=== PATIENT | female | born 1990 | race Caucasian/White ===

== ENCOUNTER 2024-10-17 10:41 | Day surgery (SDC) | payer BC, SELFPAY ==
[2024-10-17] VITALS (7 sets, daily range): BP systolic 109–116; BP diastolic 66–78; PULSE 66–78; RESP 14–16; TEMP 36.1–36.8; O2SAT 100; BMI 24.3
--- NOTE | 2024-10-17 10:52 | PCM.PRE.AN2 ---
ASA Classification* ASA Classification ASA Classification: 2 Assessment & Plan Anesthesia* Anesthesia Assessment Anesthesia Assessment: Discussed sedation and/or anesthesia options, risks, benefits, and alternatives with patient/parents/legal guardian/POA. Questions invited. The patient/parents/legal guardian/POA seems to understand and agrees to proceed with anesthesia plan. Reviewed the physical assessment, medical history, allergy history and patient home medications list prior to surgery/procedure/anesthetic and documented any changes. Performed airway and anesthesia risk assessments. Anesthesia Type Anesthesia Type: MAC Anesthesia Focused Assessment* Airway Assessment Mouth opens: >3 cm Mallampati Score: II Labs Anesthesia Preop lab: CBC CHEMISTRY COAG Pre-Assessment Diagnosis/Proposed Procedure Planned Operative Procedure(s): EGD Anesthesia History Anesthesia History - skiver sock linings: Anesthesia History - skiver sock linings Hx Hospitalization No 10/15/24 13:56 Any Problems With Anesthesia Yes: NAUSEA 10/15/24 13:56 Cholinesterase deficiency No 10/15/24 13:56 You/Your Family Experience No 10/15/24 13:56 fever (hyperthermia) with Relationship Recent Exposure to Contagious Disease Does patient have nerve No 10/15/24 13:56 stimulator Patient instructed to have device shut off --Does patient have Pacemaker or ICD? When Was Last Pacemaker Check QUESTION #4 FULL TEXT: You/Your Family Experience fever (hyperthermia) with Anesthesia Last Oral Intake Last Oral intake: Last Oral Intake NPO since Meds taken in AM with sips of water? Meds patient instructed to take am of surgery PONV PONV - skiver sock linings: PONV - skiver sock linings Female Yes 10/15/24 13:56 HX of Motion Sickness No 10/15/24 13:56 HX of N/V After Surgery Yes 10/15/24 13:56 Non-Smoker Yes 10/15/24 13:56 Duration of Surgery greater No 10/15/24 13:56 than 60 minutes Number of Risk Factors 3 10/15/24 13:56 PONV Score Moderate Risk 10/15/24 13:56 Height & Weight Height & Weight: Anesthesia: Height & Weight Height 5 ft 3 in 09/03/24 10:07 Respiratory Assessment Respiratory Assessment - skiver sock linings: Respiratory Tract Infection Hx - skiver sock linings Hx Respiratory Tract Infection No 10/15/24 13:56 STOP Sleep Apnea STOP Sleep Apnea - skiver sock linings: STOP Sleep Apnea - skiver sock linings Hx Hypertension No 10/15/24 13:56 Hx Sleep Apnea No 10/15/24 13:56 CPAP BIPAP Do you snore loudly (louder No 10/15/24 13:56 than talking or can be heard Do you often feel tired/ No 10/15/24 13:56 fatigued/ sleepy during daytime? Has anyone observed you stop No 10/15/24 13:56 breathing during sleep? STOP Results Negative 10/15/24 13:56 QUESTION #5 FULL TEXT : Do you snore loudly (louder than talking or can be heard through closed doors)? 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 Specify any problems Hx of Preganancy in last 3 No 10/15/24 13:56 Months Nurse Filling Out Transfusion DSCHRIBER 10/15/24 13:56 & Questions: Date: 10/15/24 10/15/24 13:56 Time: 13:58 10/15/24 13:56 Patient unable to answer at this time (ie. confused, unrespo /Reproduction History /Reproductive History - skiver sock linings: /Reproductive Hx- skiver sock linings Hx Now No 10/15/24 13:56 Gestational Age (in weeks): EDC: Hx Hx Para Hx Section SAB No 10/15/24 13:56 PFSH Medical History Migraine headache Gastric reflux Non-smoker Home Medications ?Medication ?Instructions ?Recorded ?Last Taken ?Type calcium polycarbophil 625 mg 1,250 mg PO QDAY 09/03/24 Unknown History tablet (FiberCon) pantoprazole 40 mg tablet,delayed 40 mg PO QDAY #90 tabs 09/03/24 Unknown Rx release cholecalciferol (vitamin D3) 25 25 mcg PO DAILY 10/15/24 Unknown History mcg (1,000 unit) capsule (Vitamin D3) magnesium 250 mg tablet 250 mg PO DAILY 10/15/24 Unknown History vit no.95-ferrous 1 tab PO DAILY 10/15/24 Unknown History fumarate 28 mg-folic acid 800 mcg tablet ( Multivitamins) Allergy/AdvReac Type Severity Reaction Status Date / Time amoxicillin (From Augmentin) Allergy Intermediate Other Verified 10/15/24 13:55 clavulanic acid (From Allergy Intermediate Other Verified 10/15/24 13:55 Augmentin) Surgical History History of mandibular surgery History of cholecystectomy Social History Smoking Status: Never smoker alcohol intake: never frequency: 5-6 times per week Review of Systems (Anesthesia) ROS Narrative System reviewed and no additional complaints, except as documented.
[2024-10-17 11:24] LABS: Internal QC Validated? YES +Cl - CLEAR BKGD; Pregnancy, Urine Negative Negative
[2024-10-17] MEDS: Lactated Ringers 1,000 ML 15 ML IV (11:28)
--- NOTE | 2024-10-17 11:30 | EGD_PTH ---
PATIENT: JANICE WHITE LOC: EN U#:[id number] AGE/SX: 33/F ROOM: RE10/17/[address]: Dr. Junior Gomez DO : 1990 BED: DIS: 10/17/2024 SPEC #: [id number] RECD: 10/17/24 12:53 STATUS: RUT REQ #: [id number] ALEXANDREA: 10/17/24 11:[address]: Junior Gomez DEPT: SURGICAL PATHOLOGY RECD BY: Drake Whittaker ENTERED: 10/17/24 14:38 SP TYPE: EGD BIOPSY BLADIMIR DR: Dr. Vega Mas MD Tissues: A - Duodenum, NOS B - Gastric mucous membrane Procedures: Immunohistochemical Stains Surgery Specimen Level IV HEADER OPERATION: EGD and biopsy PRE-OP DIAGNOSIS: Epigastric pain, heartburn TISSUE SUBMITTED: A- Duodenum biopsy, B- Gastric antrum biopsy MICROSCOPIC DIAGNOSIS A. Duodenum, biopsy: Normal villous architecture with increased Intraepithelial lymphocytes - see note. Note: This pattern of injury is etiologically nonspecific?and the differential diagnosis includes sensitivity to gluten and non-gluten proteins, small intestinal bacterial overgrowth, stasis related changes, infection, protein calorie malnutrition, tropical sprue, and medication injury (NSAIDs, Olmesartan / Benicar, Mycophenolic acid, Idelalisib, for example). If celiac disease is a clinical concern, additional clinical studies, such as tTG-IgA, are recommended. B. Stomach, antrum, biopsy: Oxyntic mucosa with slight chronic inflammation. IHC negative for H.pylori organisms. MICROSCOPIC DESCRIPTION Slides are reviewed. All matched controls reacted appropriately. These tests were developed and their performance characteristics determined by [facility]. They may not have been cleared or approved by the U.S. Food and Drug Administration. The FDA has determined that such clearance or approval is not necessary.? The above immunohistochemical/dualISH?markers are reviewed by the Pathologist. GROSS DESCRIPTION Received in 2 formalin containers labeled the patient's name and date of . Designated as: A. Duodenum biopsy are 2 miller tissue fragments, 0.3 cm and 0.5 cm. Entirely submitted in 1 cassette. B. Gastric antrum, check for H. pylori are 4 miller tissue fragments, <0.1 cm to 0.7 cm. Entirely submitted in 1 cassette. [facility] [place] CPT:26826v8,32644
--- NOTE | 2024-10-17 11:49 | PCM.HP.STD ---
HPI - General General Date of Admission: 10/17/24 Date of Service: 10/17/24 HPI Narrative JANICE WHITE, is a 33 F who presents LEORA WHITE, is a 33 F who presents to the office today for OV 06/25/2024 33y/o female presents for consultation with complaints of external skin tag and indigestion. She reports development of hemorrhoid post delivery of her second child in 2022. Rectal exam today reveals a minute skin tag. She denies any bleeding but does endorse intermittent rectal irritation. We have discussed the benefits of a high-fiber diet with the addition of FiberCon tablets daily. She will also trial Anusol suppositories for 7 days. In terms of indigestion she complains of an epigastric pressure and occasional heartburn. Denies any nausea, vomiting, dysphagia or weight loss. She has noted improvement in the past with OTC Pepcid. She will start Pepcid 20 mg once daily and complete 8 weeks of therapy. She will follow-up in 3 months. If she has return of upper GI symptoms we will proceed with EGD. If she continues to experience irritation secondary to skin tag will arrange for banding. Note: [employer] speech recognition diabetic educator software was used to create portions of this document. Sound-alike and misspelled words, as well as other diabetic educator errors may be contained in the documentation. Patient Instructions: FiberCon 2 tablets once daily with 8 ounces of water after a meal. May take up to 3 weeks for symptom improvement. Pepcid 20mg QD x8 weeks and then discontinue, if symptoms persist will start PPI and schedule EGD - reports the hemorrhoids are so much better - epigastric palpitation, feeling of fullness, intermittent - has been on pepcid 20mg daily since last OV - avoids caffeine - reports episodes have decreased in frequency with pepcid daily, no longer having daily episodes - Holter monitor shows something there but nothing worrisome - she went on a low dose BB and this showed no change - saw a chiropractor and was able to massage down hiatal hernia and this resolved symptom x2 - symptoms did not worsen when - wants to become again and is fearful she will develop symptoms during PFSH Medical History Migraine headache Gastric reflux Non-smoker Home Medications ?Medication ?Instructions ?Recorded ?Last Taken ?Type calcium polycarbophil 625 mg 1,250 mg PO QDAY 09/03/24 Unknown History tablet (FiberCon) pantoprazole 40 mg tablet,delayed 40 mg PO QDAY #90 tabs 09/03/24 Unknown Rx release cholecalciferol (vitamin D3) 25 25 mcg PO DAILY 10/15/24 Unknown History mcg (1,000 unit) capsule (Vitamin D3) magnesium 250 mg tablet 250 mg PO DAILY 10/15/24 Unknown History vit no.95-ferrous 1 tab PO DAILY 10/15/24 Unknown History fumarate 28 mg-folic acid 800 mcg tablet ( Multivitamins) Allergy/AdvReac Type Severity Reaction Status Date / Time amoxicillin (From Augmentin) Allergy Intermediate Other Verified 10/17/24 11:19 clavulanic acid (From Allergy Intermediate Other Verified 10/17/24 11:19 Augmentin) Surgical History History of mandibular surgery History of cholecystectomy Social History Smoking Status: Never smoker alcohol intake: never frequency: 5-6 times per week ROS Constitutional Constitutional: Denies fatigue, fever(s), poor appetite, weight gain or weight loss Gastrointestinal Gastrointestinal: Denies belching, bloating, change in bowel habits, change in stool character, chewing difficulty, coffee ground emesis, constipation, cramping, diarrhea, dyspepsia, dysphagia, early satiety, excessive flatus, fecal incontinence, heartburn, hematemesis, hematochezia, hemorrhoids, loose stools, melena, nausea, odynophagia, rectal bleeding, tenesmus, vomiting or weight changes Vital Signs Vital Signs Vital Signs: 10/17/24 11:19 10/17/24 11:19 Temperature 98.3 F Temperature Source Temporal Pulse Rate 66 Respiratory Rate 16 Respiratory Pattern Normal Blood Pressure 116/78 Blood Pressure Mean 90 Blood Pressure Source Monitor Blood Pressure Position Semi-Fowlers Blood Pressure Location Right Arm Pulse Ox 100 Oxygen Delivery Method Room Air Weight Weight: 137 lb 9.095 oz Body Mass Index (BMI) 24.3 Physical Exam Const alert, oriented x3, no apparent distress and healthy appearing General Appearance: cooperative GI normal to inspection, nondistended, normoactive bowel sounds, soft to palpation, non-tender and non-distended Percussion: normal to percussion Rectal Exam: deferred Results Lab / Micro Data Labs: Laboratory Results - last 24 hr 10/17/24 11:15: Urine Test Negative Assessment & Plan Assessment/Plan (1) Epigastric pain: (2) Heartburn: PLAN: Assessment and Plan Assessment and Plan (1) Heartburn: Status: Acute (2) Epigastric pain: Status: Acute Medications: New pantoprazole take 30 minutes before breakfast every morning 40 mg PO QDAY 90 tabs 1RF Discontinued hydrocortisone acetate (Anusol-HC) Discontinued Reason: Order Completed 25 mg HI QHS 12 ea 0RF famotidine (Pepcid) Discontinued Reason: Order Changed 20 mg PO QDAY 90 tabs 1RF Plan 33-year-old female presents for follow-up of heartburn and rectal irritation. She was last seen in the office on 06/25/2024 and was started on Pepcid 20 mg daily and provided a 7-day treatment of Anusol suppositories. She reports resolution in rectal pain with Anusol suppositories. Since starting Pepcid 20 mg daily (8 weeks ago) she does report improvement in epigastric pain but not resolution. She will discontinue Pepcid and start PPI daily. I have scheduled her for an EGD for further evaluation. Note: [employer] speech recognition diabetic educator software was used to create portions of this document. Sound-alike and misspelled words, as well as other diabetic educator errors may be contained in the documentation. Patient Instructions: Discontinue pepcid Start pantoprazole 40mg daily I like 3 Will refill Anusol supp. if she has recurrent GI symptoms Follow-up in office post procedure
--- NOTE | 2024-10-17 12:08 | PCM.POST.ANE ---
Anesthesia: Postop Eval I Current Vital Signs Temperature: 97 F Pulse Rate: 69 Blood Pressure: 109/78 Respiratory Rate: 14 Pulse Ox: 100 Oxygen Delivery Method: Room Air Assessment Airway patent: Yes Spontaneous unlabored respirations: Yes Mental status: Awake and Calm nausea: No Vomiting: No Anesthesia Complication: No Fluid Hydration Crystalloid volume administer (ml): 200 Total IV fluid infused: 200 Progress Note Anesthesia document: Postop Eval 1 completed: Yes
--- NOTE | 2024-10-17 12:19 | OP.EGD_ITS ---
Patient Name: Mindy Potter Procedure Date: 10/17/2024 11:53 AM Date of : 1990 Age: 33 Procedure: Upper GI endoscopy Indications: Epigastric abdominal pain, Functional Dyspepsia Providers: Junior Gomez DO Referring MD: Vega Mas Md Medicines: Monitored Anesthesia Care Complications: No immediate complications. Procedure: Pre-Anesthesia Assessment: - Prior to the procedure, a History and Physical was performed, and patient medications and allergies were reviewed. The patient is competent. The risks and benefits of the procedure and the sedation options and risks were discussed with the patient. All questions were answered and informed consent was obtained. Patient identification and proposed procedure were verified by the physician. Mental Status Examination: alert and oriented. Airway Examination: normal oropharyngeal airway and neck mobility. Respiratory Examination: clear to auscultation. CV Examination: normal. Prophylactic Antibiotics: The patient does not require prophylactic antibiotics. Prior Anticoagulants: The patient has taken no anticoagulant or antiplatelet agents. ASA Grade Assessment: II - A patient with mild systemic disease. After reviewing the risks and benefits, the patient was deemed in satisfactory condition to undergo the procedure. The anesthesia plan was to use monitored anesthesia care (MAC). Immediately prior to administration of medications, the patient was re-assessed for adequacy to receive sedatives. The heart rate, respiratory rate, oxygen saturations, blood pressure, adequacy of pulmonary ventilation, and response to care were monitored throughout the procedure. The physical status of the patient was re-assessed after the procedure. After obtaining informed consent, the endoscope was passed under direct vision. Throughout the procedure, the patient's blood pressure, pulse, and oxygen saturations were monitored continuously. The gastroscope was introduced through the mouth, and advanced to the fourth part of the duodenum. Small bowel enteroscopy was deemed necessary. The upper GI endoscopy was accomplished without difficulty. The patient tolerated the procedure well. Scope In: 12:02:31 PM Scope Out: 12:05:59 PM Total Procedure Duration Time 0 hours 3 minutes 28 seconds Findings: The examined esophagus was normal. Estimated blood loss: none. Suspect gastroparesis due to absence of peristalsis, patient symptoms and retained gastric contents. Biopsies were taken with a cold forceps for histology. Verification of patient identification for the specimen was done. Estimated blood loss was minimal. Biopsies were taken with a cold forceps for Helicobacter pylori testing. Verification of patient identification for the specimen was done. Estimated blood loss was minimal. Patchy mildly erythematous mucosa without active bleeding and with no stigmata of bleeding was found in the duodenal bulb and in the second portion of the duodenum. Biopsies were taken with a cold forceps for histology. Verification of patient identification for the specimen was done. Estimated blood loss was minimal. Impression: - Normal esophagus. - Gastroparesis. Biopsied. - Erythematous duodenopathy. Biopsied. Recommendation: - Discharge patient to home. - Resume previous diet. - Continue present medications. - Await pathology results. Procedure Code(s): --- Professional --- 70040, Small intestinal endoscopy, enteroscopy beyond second portion of duodenum, not including ileum; with biopsy, single or multiple CPT copyright 2021 [employer]. All rights reserved. The codes documented in this report are preliminary and upon sagger filler review may be revised to meet current compliance requirements. Junior Gomez DO 10/17/2024 12:19:18 PM This report has been signed electronically. Number of Addenda: 0 Note Initiated On: 10/17/2024 11:53 AM
--- NOTE | 2024-10-17 12:19 | OP.CCLET_ITS ---
10/17/2024 Vega Mas Md Re : Upper GI endoscopy procedure for Mindy Potter Dear Chace This procedure was performed on October. My impressions and recommendations are as follows: Impressions : - Normal esophagus. - Gastroparesis. Biopsied. - Erythematous duodenopathy. Biopsied. Recommendations : - Discharge patient to home. - Resume previous diet. - Continue present medications. - Await pathology results. My findings are described in the full procedure note, which is enclosed. If I can be of further assistance, please feel free to contact me at . Sincerely, Junior Gomez, 10/17/2024 12:19:18 PM This report has been signed electronically.
--- NOTE | 2024-10-17 12:25 | PCM.POSTANE2 ---
Anesthesia Postop Eval I Sum Postop Eval Completion status Anesthesia document: Postop Eval 1 completed: Yes Anesthesia Postop Eval I Summary Anesthesia Postop Eval I Summary: Anesthesia Postop Eval I: Assessment Summary Airway patent Yes 10/17/24 12:09 [email or web address] Spontaneous unlabored Yes 10/17/24 12:09 [email or web address] respirations Mental status Awake,Calm 10/17/24 12:09 [email or web address] nausea No 10/17/24 12:09 [email or web address] Vomiting No 10/17/24 12:09 [email or web address] Anesthesia Postop Eval I: Fluid Summary Crystalloid volume administer 200 10/17/24 12:09 [email or web address] (ml) Colloids volume administered ( ml) Blood Product volume administered (ml) Total IV fluid infused 200 10/17/24 12:09 [email or web address] Anesthesia Postop Eval I: Summary Notes Anesthesia Complication No 10/17/24 12:09 [email or web address] Anesthesia Complication Comment: Post-operative progress note Anesthesia: Postop Eval II Evaluation Mental status: Awake Pain Level: 0 nausea: No Vomiting: No
--- OUTSIDE RECORDS SUMMARY | 2024-10-17 20:30 | XMS RPT_ITS | CCD ---
Author Organization [facility] Care Team Providers Care Supervisor Nut Processing Name Role Phone JAMAICA PATEL, HILARY BROOKS Primary Care Physician HILARY BERUMEN MD Consulting Unavailable NIVIA BARBER CNP Attending NIVIA Magallon CNP Admitting UnavailNIVIA Negrete CNP Primary Care Unavailabl e PROVIDER, UNKNOWN Consulting Unavailable PROVIDER, UNKNOWN Consulting Unavailable PROVIDER, UNKNOWN Consulting Unavailable SHRADDHA PATEL, DR JASKARAN Obregon Primary Care Physician [phone] LATA MELENDEZ, AIRAN Roland Attending Gloria BERUMEN MD, HILARY BROOKS Primary Care Unavailab daniel MELENDEZ, SAJI Roland Attending Didi LLANES MD, DR JASKARAN Obregon Primary Care Unavailabl e DOMONIQUE MELENDEZ, SAJI Roland Admitting Didi MELENDEZ, ARIAN Roland Attending Gloria LLANES MD, DR JASKARAN Obregon Primary Care Unavailgeraldine e LATA MELENDEZ, ARIAN Roland Attending HILARY Escalante MD Primary Care Unavailab daniel ROJAS, [place] Attending Gloria BERUMEN MD, HILARY BROOKS Primary Care Unavailab JEFF Guzman Attending Unavailab César PATEL, HILARY BROOKS Primary Care Unavailab daniel MELENDEZ, ARIAN Roland Attending Gloria BERUMEN MD, HILARY BROOKS Primary Care Unavailab daniel MELENDEZ, ARIAN Roland Attending Gloria BERUMEN MD, HILARY BROOKS Primary Care Unavailab daniel LATHAMBENIRANJAN MORALES Attending Сергей BERUMEN MD, HILARY BROOKS Primary Care Unavailab daniel ROJAS, [place] Attending Gloria BERUMEN MD, HILARY BROOKS Primary Care Unavailab daniel BENTON APRN-ADAN, ARIAN Roland Attending Gloria shanice BERUMEN MD, HILARY BROOKS Primary Care Unavailab daniel MELENDEZ, ARIAN Roland Attending Gloria BERUMEN MD, HILARY BROOKS Primary Care Unavailab daniel LLANES MD, JASKARAN [place] Unavailable CLAUDIO ARANDA Unavailable Unavailable NIDHI PATEL, Aundrea WRIGHT Unavailable SAUL PATEL, LUDWIG Roland Unavailable SAUL PATEL, LUDWIG Roland Unavailable [phone] SURGERY, GENERAL Unavailable Unavailable SASCHA ASHLEY Unavailable Unavailable ADI RN, JACQUIE Unavailable Unavailable PENNY RN, BRANDON Unavailable UnavailSANGEETA Leary Unavailable Unavailable EMILIE TENORIO-C, [place] Gipson Unavailable RAMIRO BERUMEN Unavailable Unavailable JAMAICA MONP-BC, LIZY R Unavailable Compa BERUMEN MD Unavailable Morena Dinh Unavailable Unavailable Los, Lizeth Unavailable Unavailable Elly Abernathy Unavailable Unavailable MICHELA PATEL, LYUBOV Quan Unavailable SERG KERR Unavailable Unavailable Arturo WILSON, Diana Unavailable Unavailable Esmer Escalante Unavailable Unavailable Unavailable Unavailable EMILIE TENORIO-C, [place] Gipson Unavailable Unav ailable Unavailable Unavailable SHRADDHA PATEL, DR JASKARAN Ob[place] Primary Care Unavailabl e IZABEL PATTERSON DDS Attending Unavailable IZABEL PATTERSON DDS Attending Unavailable DR JASKARAN LLANES MD Primary Care Unavailabl e Jayda Nova Attending Unavailable Jayda Nova Attending Unavailable Jaskaran Llanes Primary Care Unavailable Jaskaran Llanes Referring Unavailable Junior Gomez Attending Unavailable Jayda Mcclellan Attending Provider Patricia JEFFRIES, Dr. Pacheco Attending Provider Shraddha PATEL, Dr. Ferrari Primary Care Provider [phone] Shraddha PATEL, Dr. Ferrari Referring Provider Friend Dr. Junior JEFFRIES Other Provider Allergies Allergy Classification Reported Allergen(s) Allergy Type Date of Onset Reaction(s) Facility (15 sources) Amoxicillin / Clavulanate; Translations: [amoxicillin-cla vulanate] Drug Allergy 0 Weal (disorder) [facility] Comment on above: hives (7 sources) HYDROcodone; Translations: [hydrocodone] Drug Allergy Nausea [facility] (7 sources) Penicillin; Translations: [penicillin] Drug Allergy [facility] (1 source) Amoxicillin / Clavulanate Drug Allergy [facility] Repository (10 sources) Clindamycin; Translations: [clindamycin] Drug Allergy 2 Pruritus [facility] Comment on above: burning ears with it carlie and redness (1 source) Amoxicillin Drug Allergy 5 [facility] Repository (1 source) Clavulanate Drug Allergy 5 [facility] Repository (1 source) Amoxicillin Drug Allergy 5 Other [facility] (1 source) Clavulanate Drug Allergy 5 Other [facility] Medications Current Medications Medication Drug Class(es) Dates Sig (Normalized) Sig (Original) acetaminophen 325 mg oral capsule (6 sources) Start: 10-30-2022 Tylenol 325 mg oral capsule Dose : 650 mg =, Oral, q6h, PRN Pain, scale 1-3, 0 Refill(s) Start Date: 10/30/22 Status: Ordered Start: 12-04-2019 Tylenol 325 mg oral capsule Dose : 650 mg =, Oral, q6h, PRN Pain, scale 1-3, 0 Refill(s) Start Date: 12/04/19 Status: Ordered benzocaine 200 mg/ml topical spray (5 sources) Standardized Chemical Allergen Start: 12-04-2019 apply 1 dose topically four times daily Americaine 20% topical spray Dose = 1 garcía, Topical, QID, 0 Refill(s) Start Date: 12/04/19 Status: Ordered calcium polycarbophil 625 mg oral tablet (1 source) Start: 09-03-2024 Calcium Polycarbophil (Fibercon) 625 mg tablet Active 1250 mg PO daily September 03, 2024 12:00am cholecalciferol 0.025 mg oral capsule (1 source) Vitamin D Start: 10-15-2024 take 1 capsule by mouth once daily Cholecalciferol (Vitamin D3) (Vitamin D3) 25 mcg (1,000 unit) capsule Active 25 ug PO DAILY October 15, 2024 12:00am docusate sodium 100 mg oral capsule (6 sources) Start: 10-30-2022 Colace 100 mg oral capsule Dose : 100 mg = 1 cap(s), Oral, BID, PRN Constipation, 0 Refill(s) Start Date: 10/30/22 Status: Ordered Start: 12-04-2019 Colace 100 mg oral capsule Dose : 100 mg = 1 cap(s), Oral, BID, PRN Constipation, 0 Refill(s) Start Date: 12/04/19 Status: Ordered ibuprofen 600 mg oral tablet (6 sources) Nonsteroidal Anti-inflammatory Drug Start: 10-30-2022 Motrin Dose : 600 mg = 1 tab(s), Oral, q6h, PRN uterine cramping, 0 Refill(s) Start Date: 10/30/22 Status: Ordered Start: 12-04-2019 Motrin Dose : 600 mg = 1 tab(s), Oral, q6h, PRN uterine cramping, 0 Refill(s) Start Date: 12/04/19 Status: Ordered Magnesium (1 source) Start: 10-15-2024 take 1 tablet by mouth once daily Magnesium 250 mg tablet Active 250 mg PO DAILY October 15, 2024 12:00am pantoprazole 40 mg delayed release oral tablet (9 sources) Proton Pump Inhibitor Start: 09-03-2024 take 1 tablet by mouth once daily 30 minutes before breakfast Pantoprazole 40 mg tablet,delayed release (DR/EC) Active 40 mg PO daily September 03, 2024 12:00am take 30 minutes before breakfast every morning Start: 01-14-2015 End: 07-30-2015 take 1 tablet by mouth twice daily PROTONIX, 20MG (Oral Tablet Delayed Release) ; 1 (one) Tablet two times daily for 30 days Quantity: 60 {Tablet} Refills: 2 Ordered: 30-Jul-2015 Start: 14-Jan-2015 End: 30-Jul-2015 Status: Inactive Pnv Cmb#95-Ferrous Fumarate-Fa ( Multivitamins) 28 mg iron- 800 mcg tablet (1 source) Start: 10-15-2024 Pnv Cmb#95-Channing renetta Fumarate-Fa ( Multivitamins) 28 mg iron- 800 mcg tablet Active 1 {tbl} PO DAILY October 15, 2024 12:00am Multivitamins (7 sources) Start: 08-13-2018 take 1 tablet by mouth once daily in the evening Multivitamins Dose = 1 tab(s), Oral, qPM, 0 Refill(s) Start Date: 08/13/18 Status: Ordered Probiotic (2 sources) Start: 10-19-2022 Probiotic Oral , Daily, 0 Refill(s) Start Date: 10/19/22 Status: Ordered Completed/Discontinued Medications Medication Drug Class(es) Dates Sig (Normalized) Sig (Original) amoxicillin 500 mg oral tablet (8 sources) Penicillin-class Antibacterial Start: 01-07-2011 End: 01-14-2011 take 1 tablet by mouth three times daily AMOXICILLIN, 500MG (Oral Tablet) ; 1 (one) Tablet three times daily for 7 days Quantity: 21 {Tablet} Refills: 0 Ordered: 25-Jan-2011 MD Compa BERUMEN Start: 07-Jan-2011 End: 14-Jan-2011 Status: Inactive amoxicillin 875 mg / clavulanate 125 mg oral tablet (8 sources) Penicillin-class Antibacterial Start: 07-14-2011 End: 04-28-2012 take 1 tablet by mouth twice daily AUGMENTIN, 875-125MG (Oral Tablet) ; 1 (one) Tablet two times daily for 7 days Quantity: 20 {Tablet} Refills: 1 Ordered: 28-Apr-2012 SANGEETA FRANCIS Start: 14-Jul-2011 End: 28-Apr-2012 Status: Inactive Comments: [facility] Comment on above: [facility] azithromycin 250 mg oral tablet (20 sources) Macrolide Antimicrobial Start: 09-26-2022 End: 10-01-2022 azithromycin 250 mg tablet ; 2 (two) Tablet on day one, then 1 tablet daily for 4 days for 5 days Quantity: 6 {Tablet} Refills: 0 Ordered: 26-Sep-2022 ANDREW PHAN Start: 26-Sep-2022 End: 01-Oct-2022 Status: Inactive Start: 04-07-2022 End: 04-12-2022 Azithromycin 250 MG Oral Tab let ; 2 (two) Tablet on day one, then 1 tablet daily for 4 days for 5 days Quantity: 6 {Tablet} Refills: 0 Ordered: 07-Apr-2022 ANDREW PHAN Start: 07-Apr-2022 End: 12-Apr-2022 Status: Inactive Start: 12-05-2016 End: 12-10-2016 Azithromycin 250 MG Oral Tab let ; 2 (two) Tablet on day one, then 1 tablet daily for 4 days for 5 days Quantity: 6 {Tablet} Refills: 0 Ordered: 07-Feb-2017 MD JASKARAN LLANES Start: 05-Dec-2016 End: 10-Dec-2016 Status: Inactive Start: 02-04-2016 End: 02-09-2016 Azithromycin 250 MG Oral Tab let ; 2 (two) Tablet on day one, then 1 tablet daily for 4 days for 5 days Quantity: 6 {Tablet} Refills: 0 Ordered: 16-Feb-2016 MD JASKARAN LLANES Start: 04-Feb-2016 End: 09-Feb-2016 Status: Inactive Start: 12-11-2014 End: 01-14-2015 AZITHROMYCIN, 250MG (Oral Ta blet) ; 2 x 1 then 1 x 4 Tablet daily for 0 days Quantity: 6 {Tablet} Refills: 0 Ordered: 14-Jan-2015 SANGEETA FRANCIS Start: 11-Dec-2014 End: 14-Jan-2015 Status: Inactive Comments: take two tablets day one and then one tablet daily for 4 days Start: 09-09-2014 End: 10-20-2014 AZITHROMYCIN, 250MG (Oral Ta blet) ; 2 x 1 then 1 x 4 Tablet daily for 0 days Quantity: 6 {Tablet} Refills: 0 Ordered: 20-Oct-2014 SERG KERR Start: 09-Sep-2014 End: 20-Oct-2014 Status: Inactive Comments: take two tablets day one and then one tablet daily for 4 days Start: 01-20-2014 End: 01-25-2014 AZITHROMYCIN, 250MG (Oral Ta blet) ; 2 x 1 then 1 x 4 Tablet daily for 5 days Quantity: 6 {Tablet} Refills: 0 Ordered: 20-Jan-2014 MD JASKARAN LLANES Start: 20-Jan-2014 End: 25-Jan-2014 Status: Inactive Comments: take two tablets day one and then one tablet daily for 4 days Start: 07-07-2012 End: 07-12-2012 AZITHROMYCIN, 250MG (Oral Ta blet) ; 2 x 1 then 1 x 4 Tablet daily for 5 days Quantity: 6 {Tablet} Refills: 0 Ordered: 07-Jul-2012 MD LYUBOV ABERNATHY Start: 07-Jul-2012 End: 12-Jul-2012 Status: Inactive Comments: take two tablets day one and then one tablet daily for 4 days Comment on above: take two tablets day one and then one tablet daily for 4 days bifidobacterium animalis [id number] unt / lactobacillus acidophilus [id number] unt oral capsule (8 sources) take 1 capsule by mouth once daily PROBIOTIC (Oral Capsule) ; 1 daily Status: Inactive cefuroxime 500 mg oral tablet (16 sources) Cephalosporin Antibacterial Start: 07-30-19 16 End: 08-09-19 16 take 1 tablet by mouth twice daily CEFTIN, 500MG (Oral Tablet) ; 1 Tablet two times daily for 10 days Quantity: 20 {Tablet} Refills: 0 Ordered: 30-Jul-2015 MD Aundrea TERRELL Start: 30-Jul-2015 End: 09-Aug-2015 Status: Inactive Start: 06-18-2014 End: 07-02-2014 take 1 tablet by mouth twice daily CEFTIN, 500MG (Oral Tablet) ; 1 (one) Tablet two times daily for 14 days Quantity: 28 {Tablet} Refills: 0 Ordered: 09-Sep-2014 MD Compa BERUMEN Start: 18-Jun-2014 End: 02-Jul-2014 Status: Inactive cephalexin 500 mg oral capsule (7 sources) Cephalosporin Antibacterial Start: 05-29-2023 End: 06-08-2023 cephALEXin 500 mg capsule ; 1 (one) Capsule four times daily for 10 days Quantity: 40 {Capsule} Refills: 0 Ordered: 22-Jun-2023 ANDREW PHAN Start: 29-May-2023 End: 08-Jun-2023 Status: Inactive Comments: medication to be dispensed in office Comment on above: medication to be dis pensed in office cetirizine hydrochloride 10 mg oral tablet (8 sources) Histamine-1 Receptor Antagonist take 1 tablet by mouth once daily ZYRTEC ALLERGY, 10MG (Oral Tablet) ; 1 Daily (10 MG) Status: Inactive clindamycin 300 mg oral capsule (8 sources) Lincosamide Antibacterial Start: 07-23-2021 End: 08-02-2021 take 1 capsule by mouth three times daily Clindamycin HCl 300 MG Oral Capsule ; 1 (one) Capsule three times daily for 10 days Quantity: 30 {Capsule} Refills: 0 Ordered: 13-Aug-2021 MD Aundrea TERRELL Start: 23-Jul-2021 End: 02-Aug-2021 Status: Inactive codeine phosphate 2 mg/ml / guaiFENesin 20 mg/ml oral solution (16 sources) Opioid Agonist Start: 07-16-2018 End: 07-21-2018 take 5 mL by mouth every four hours as needed Guaifenesin-Codei ne 100-10 MG/5ML Oral Syrup ; 5 Milliliter Milliliter every four hours, as needed for cough for 5 days Quantity: 120 {Milliliter} Refills: 0 Ordered: 13-Aug-2018 Start: 16-Jul-2018 End: 21-Jul-2018 Status: Inactive Comments: Medication taken as needed. [facility] Start: 07-07-2012 End: 07-14-2012 take 1 [tsp_us] by mouth every four hours as needed GUIATUSS AC, 100-10MG/5ML (Oral Syrup) ; 1 (one) tsp every four hours as needed for cough for 7 days Quantity: 4 {oz} Refills: 0 Ordered: 01-Jan-2014 MD LYUBOV ABERNATHY Start: 07-Jul-2012 End: 14-Jul-2012 Status: Inactive Comments: Medication taken as needed. DO NOT TAKE WHILE DRIVING Comment on above: Medication taken as needed. [facility] Medication taken as needed. DO NOT TAKE WHILE DRIVING diazePAM 2 mg oral tablet (8 sources) Benzodiazepine Start: 2014 End: 2014 take 0.5-1 tablets by mouth once daily as needed VALIUM, 2MG (Oral Tablet) ; 1/2 to 1 Tablet daily as needed for 7 days Quantity: 7 {Tablet} Refills: 0 Ordered: 14-Feb-2015 MD KYLE LLANES Start: 14-Feb-2015 End: 21-Feb-2015 Status: Inactive Comments: Medication taken as needed. [facility] Comment on above: Medication taken as needed. [facility] doxycycline monohydrate 100 mg oral capsule (8 sources) Tetracycline-class Drug Start: 2015 End: 2015 take 1 capsule by mouth twice daily Doxycycline Monohydrate 100 MG Oral Capsule ; 1 (one) Capsule two times daily for 7 days Quantity: 14 {Capsule} Refills: 0 Ordered: 17-Sep-2016 MD JASKARAN LLANES Start: 16-Feb-2016 End: 23-Feb-2016 Status: Inactive Ethinyl Estradiol / Levonorgestrel (8 sources) Progestin, Estrogen, Progestin-containing Intrauterine Device AVIANE, 0.1-20MG-MCG (Oral Tablet) ; PER MASH PREPARATORY OPERATOR (0.1-20 MG-MCG) Status: Inactive famotidine 20 mg oral tablet (1 source) Histamine-2 Receptor Antagonist Start: 2024 End: 2024 take 1 tablet by mouth once daily Famotidine (Pepcid) 20 mg tablet Discontinued 20 mg PO daily 90 June 25, 2024 1:00am September 03, 2024 10:19am fluticasone propionate 0.05 mg/actuat metered dose nasal spray (8 sources) Corticosteroid FLONASE, 50MCG/A CT (Nasal Suspension) ; prn (50 MCG/ACT) Status: Inactive 12 hr guaiFENesin 600 mg extended release oral tablet (8 sources) Start: 2015 End: 2015 GUAIFENESIN ER, 600MG (Oral Tablet Extended Release 12 Hour) ; 1 (one) Tablet ER 12HR bid to loosen mucous for 10 days Quantity: 20 {Tablet} Refills: 0 Ordered: 14-Oct-2015 MD Aundrea TERRELL Start: 30-Jul-2015 End: 09-Aug-2015 Status: Inactive Hydrocortisone Acetate (Anusol-Hc) 25 mg suppository (1 source) Start: 2024 End: 2024 Hydrocortisone Acetate (Anusol-Hc) 25 mg suppository Discontinued 25 mg RC AT BEDTIME June 25, 2024 1:00am September 03, 2024 10:19am [facility] (5 sources) Start: 2019 [facility] 7 = gram(s) Apply 1 EA, Topical, AsDirected, PRN Other (see order comments), 0 Refill(s), Ointment, 77.3 Start Date: 12/04/19 Status: Ordered loratadine 10 mg oral tablet (8 sources) take 1 tablet by mouth once daily CLARITIN, 10MG (Oral Tablet) ; 1 daily (10 MG) Status: Inactive LORazepam 1 mg oral tablet (8 sources) Benzodiazepine Start: 2018 End: 2019 Ativan 1 MG Oral Tablet ; 1-2 tablets Tablet Tablet 1 hour before flying, as needed for 0 days Quantity: 10 {Tablet} Refills: 0 Ordered: 08-Jul-2019 Start: 31-Oct-2018 End: 08-Jul-2019 Status: Inactive Comments: Medication taken as needed. [facility] Comment on above: Medication taken as needed. [facility] meclizine hydrochloride 25 mg oral tablet (8 sources) Antiemetic Start: 2014 End: 2014 take 1 tablet by mouth three times daily as needed MECLIZINE HCL, 25MG (Oral Tablet) ; one Tab three times a day, as needed for 7 days Quantity: 21 {Tablet} Refills: 0 Ordered: 03-Nov-2014 MD JASKARAN LLANES Start: 20-Oct-2014 End: 27-Oct-2014 Status: Inactive Comments: Medication taken as needed. Comment on above: Medication taken as needed. metoprolol tartrate 25 mg oral tablet (8 sources) beta-Adrenergic Romy Start: 2021 End: 2021 take 1 tablet by mouth twice daily Metoprolol Tartrate 25 MG Oral Tablet ; 1 (one) Tablet two times daily for 30 days Quantity: 60 {Tablet} Refills: 2 Ordered: 23-Jul-2021 STEVE FRANCIS Start: 22-Jun-2021 End: 23-Jul-2021 Status: Inactive MULTIVITAMINS (Oral Capsule) (8 sources) take 1 capsule by mouth once daily MULTIVITAMINS (Oral Capsule) ; 1 daily Status: Inactive ondansetron 4 mg oral tablet (8 sources) Serotonin-3 Receptor Antagonist Start: 2014 End: 2014 take 1 tablet by mouth every six hours as needed ZOFRAN, 4MG (Oral Tablet) ; 1 (one) Tablet every six hours as needed for 0 days Quantity: 20 {Tablet} Refills: 0 Ordered: 11-Dec-2014 Start: 20-Oct-2014 End: 11-Dec-2014 Status: Inactive Comments: Medication taken as needed. Comment on above: Medication taken as needed. oseltamivir 75 mg oral capsule (16 sources) Neuraminidase Inhibitor Start: 2018 End: 2019 take 1 capsule by mouth twice daily Tamiflu 75 MG Oral Capsule ; 1 (one) Capsule two times daily for 5 days Quantity: 10 {Capsule} Refills: 0 Ordered: 28-May-2021 MD JASKARAN LLANES Start: 08-Jul-2019 End: 13-Jul-2019 Status: Inactive pseudoephedrine hydrochloride 30 mg oral tablet (8 sources) alpha-Adrenergic Agonist Start: 2015 End: 2015 take 1 tablet by mouth every six hours as needed for congestion Pseudoephedrine HCl 30 MG Oral Tablet ; 1 (one) Tablet every 6 hours prn sinus congestion for 10 days Quantity: 30 {Tablet} Refills: 1 Ordered: 04-Feb-2016 Start: 30-Jul-2015 End: 04-Feb-2016 Status: Inactive sucralfate 1000 mg oral tablet (8 sources) Aluminum Complex Start: 2014 End: 2014 take 1 tablet by mouth four times daily 1 hour(s) before mealtime CARAFATE, 1GM (Oral Tablet) ; 1 (one) Tablet qid for 30 days Quantity: 120 {Tablet} Refills: 0 Ordered: 14-Feb-2015 MD Compa BERUMEN Start: 14-Jan-2015 End: 13-Feb-2015 Status: Inactive Comments: give one hour before meals and before bed Comment on above: give one hour before meals and before bed sulfamethoxazole 800 mg / trimethoprim 160 mg oral tablet (8 sources) Dihydrofolate Reductase Inhibitor Antibacterial, Sulfonamide Antimicrobial Start: 2009 End: 2009 take 1 tablet by mouth twice daily BACTRIM DS, 800-160MG (Oral Tablet) ; 1 (one) Tablet two times daily for 5 days Quantity: 28 {Tablet} Refills: 0 Ordered: 22-Apr-2010 MD LUDWIG HUGHES Start: 22-Mar-2010 End: 27-Mar-2010 Status: Inactive Problems Active Problems Problem Classification Problem Date Documented Da te Episodic/Chronic Abdominal pain (4 sources) Epigastric pain; Translations: [Epigastric pain] Onset: 09-26-2024 09-03-2024 Episodic Anxiety disorders (20 sources) Anxiety; Translations: [Anxiety disorder, unspecified] 07-01-2022 Chronic Biliary tract disease (8 sources) Poorly functioning gallbladder; Translations: [Other specified diseases of gallbladder] 01-23-2015 Episodic Cardiac dysrhythmias (20 sources) Palpitations; Translations: [Palpitations] 07-01-2022 Episodic Comment on above: labs and EKG normal. Conditions associated with dizziness or vertigo (8 sources) Benign paroxysmal positional vertigo 10-20-2014 Episodic Esophageal disorders (7 sources) Acid reflux 08-13-2018 Chronic Comment on above: Occassionally. Genitourinary symptoms and ill-defined conditions (11 sources) Dysuria; Translations: [Frequency of micturition] Onset: 04-14-2022 Episodic Hemorrhoids (3 sources) Residual hemorrhoidal skin tags; Translations: [Rectal skin tag] Onset: 07-17-2024 06-25-2024 Episodic HIV infection (8 sources) HIV infection 04-21-2022 Immunizations and screening for infectious disease (20 sources) Requires diphtheria, tetanus and pertussis vaccination; Translations: [Encounter for immunization] 07-01-2022 Episodic Influenza (16 sources) Influenza due to Influenza A virus; Translations: [Influenza due to other identified influenza virus with other respiratory manifestations] 07-01-2022 Episodic Comment on above: Nasal flu swab A pos itive Malaise and fatigue (8 sources) Fatigue; Translations: [Other fatigue] 07-13-2018 Episodic OB-related trauma to perineum and vulva (1 source) First degree perineal tear during delivery - delivered; Translations: [First degree perineal laceration during delivery] Onset: 10-29-2022 Episodic Other aftercare (8 sources) H/O: high risk medication; Translations: [Other usp (current) drug therapy] 02-15-2015 Episodic Other complications of (16 sources) Fatigue during ; Translations: [ related exhaustion and fatigue, second trimester] 07-01-2022 Episodic Other congenital anomalies (6 sources) Disorder of nasal septum; 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, 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 Other connective tissue disease (7 sources) H/O: musculoskeletal disease 02-18-2015 Episodic Other disorders of stomach and duodenum (8 sources) Indigestion; Translations: [Functional dyspepsia] 01-14-2015 Episodic Other gastrointestinal disorders (1 source) Heartburn; Translations: [Heartburn] Onset: 09-26-2024 Episodic Other gastrointestinal disorders (4 sources) Heartburn; Translations: [Heartburn] 06-25-2024 Episodic Other lower respiratory disease (8 sources) Cough; Translations: [Cough] 07-16-2018 Episodic Other and delivery including normal (2 sources) ; Translations: [Delivery normal] Onset: 10-19-2022 10-19-2022 Episodic Other screening for suspected conditions (not mental disorders or infectious disease) (20 sources) Encounter for screening for Streptococcus B; Translations: [Encounter for other specified screening] Onset: 04-19-2022 Episodic Other upper respiratory infections (20 sources) Bacterial sinusitis; Translations: [Chronic sinusitis, unspecified] 12-05-2016 Chronic Other upper respiratory infections (20 sources) Acute bacterial sinusitis; Translations: [Acute sinusitis, unspecified] 09-26-2022 Episodic Residual codes; unclassified (1 source) Gestation period, 40 weeks; Translations: [40 weeks gestation of ] Onset: 10-29-2022 Episodic Residual codes; unclassified (8 sources) Viral syndrome; Translations: [Other general symptoms and signs] 07-08-2019 Episodic Skin and subcutaneous tissue infections (14 sources) Cellulitis of finger of right hand; Translations: [Cellulitis of right finger] 05-29-2023 Episodic Unclassified (7 sources) Breast feeding () (observable entity) 12-03-2019 Comment on above: System added from do cumentation. Breast feeding Status documented as Yes on Admission Unclassified (1 source) Streptococcus agalactiae (organism) 10-28-2022 Unclassified (8 sources) LAB DRAW - The labs drawn today include: CBC and other: RPR and 1 hr glucose test. The lab was drawn from the right antecubital vein. The lab was ordered by ___ (Arian Benton NP). fax #: [phone]. 08-05-2022 Past or Other Problems Problem Classification Problem Date Documented Date Episodic/Chronic Headache; including migraine (16 sources) Headache; including migraine 10-20-2014 Inflammatory diseases of female pelvic organs (2 sources) Acute vaginitis; Translations: [Acute vaginitis] Onset: 05-05-2022 Episodic Other complications of (2 sources) related exhaustion and fatigue, second trimester; Translations: [ related exhaustion and fatigue, second trimester] Onset: 04-19-2022 Episodic Unclassified (8 sources) Sore throat - The sore throat has been occurring for 4 days. 11-26-2022 Unclassified (8 sources) Upper Respiratory Infection (URI) - Symptoms include nasal congestion. Note for Upper respiratory infection: C/O cough, facial and jaw pain. No fever/chills. 4 weeks 09-26-2022 Unclassified (8 sources) Cough - Note for Cough: Pt. reports persistent cough for 7-10 days. Describes as harsh and productive this morning of chunky green sputum. Also reports head/nasal congestion and minor throat irritation. Denies fever. 07-01-2022 Unclassified (8 sources) Urinary frequency - Note for Urinary frequency: Urinating every 1/2 hour last night. No burning. Pressure in lower abdomen. 04-14-2022 Unclassified (8 sources) Sinusitis - Note for Sinusitis: Head congestion for 6 weeks. Had improved but in past few days has worsened. No ST. No nasal drainage. Small amount drainage down the back of her throat. Pt is 10.5 weeks . 04-07-2022 Unclassified (8 sources) Sore throat - Note for Sore throat: Patient states started with sore throat 07/20 and has gotten progressively worse. Other symptoms include mild elevated temp 99.6 and generalized achiness. Patient states home COVID test done 07/20 = negative. 07-23-2021 Unclassified (8 sources) !Patient notification of lab results - Dr. Berumen. Note for !Patient notification of lab results : Mindy, all your labs as well as your EKG look great. Let me know if you are still having trouble and we can go up on your medicine dose - that should work right away if it is going to work at that dose. 06-24-2021 Unclassified (8 sources) Arrhythmia - Note for Arrhythmia: Had heart palpitations in 02/21. did have event monitor. They had settled down and would happen maybe once a day for a short time then would happen again in another month or more. ON monday. palpitations started and they have been more constant. They have been happening every day since monday. 06-22-2021 Unclassified (8 sources) Immunization - Adacel was given. An immunization information sheet was provided. 06-07-2021 Unclassified (8 sources) Cough - The onset of the cough has been acute and has been occurring for 1 day. The cough is characterized as dry (slight cough). The symptoms have been associated with body aches and runny nose. Note for Cough: pt is 18 weeks . 07-08-2019 Unclassified (8 sources) Anxiety - Note for Anxiety: Pt. is flying out of the state and would like to have a re-fill of Ativan. She reports it just takes the edge off. 10-31-2018 Unclassified (8 sources) Fever - The onset of the fever has been sudden and they have been occurring for 10 days. The patient has had a temperature of up to 100 F. The fever is relieved by analgesics. There has been associated cough, ear pain and fatigue. Note for Fever: Seen in Office on 07/13/2018. On OTC cough syrup. 07-17-2018 Unclassified (8 sources) !Patient notification of lab results - [place]. Note for !Patient notification of lab results : Mindy, your labs all look completely normal. However, if you are not feeling better by the time you get this, let us know and we can refer you to a specialist that will look for other possible causes. 07-16-2018 Unclassified (8 sources) Abdominal pain - The onset of the abdominal pain has been acute. The symptoms have been associated with fever (last night). Note for Abdominal pain: pt c/o just not feeling well for several days. Has fatigue. No sorethroat or cough. 07-13-2018 Unclassified (8 sources) Tachycardia - Note for Tachycardia: C/o palpitations. No CP or SOB. Would like to start family.Did have monitor done 2008. 02-07-2017 Unclassified (8 sources) Sinusitis - The sinusitis has been occurring for 2 weeks. It is characterized as a pressure sensation. The pain is located in the frontal area. Note for Sinusitis: Pain behind eyes. Also has sore throat. 12-05-2016 Unclassified (8 sources) sore throat - The sore throat has been occurring for 1 day. The symptoms have been associated with difficulty in swallowing, while the symptoms have not been associated with change in voice or cough. 09-19-2016 Unclassified (8 sources) Congestion - Symptoms include ear fullness, fever and nasal congestion. 02-04-2016 Unclassified (8 sources) Sinus pain - The onset of the sinus pain has been sudden and has been occurring for 1 week. The course has been increasing in severity. It is characterized as throbbing. The pain is located in the entire head. There has been associated dizziness (from sinus pressure), ear pain, eye pain, malaise and nasal stuffiness. Note for Sinus pain: Here for exam. 07-30-2015 Unclassified (8 sources) Abdominal pain - The abdominal pain has been occurring for 2 weeks. The course has been increasing (more frequent). The abdominal pain is described as cramping. The abdominal pain is described as being located in the right upper quadrant (worse after meals). There has been no associated bloody stools. Previous evaluations have included ultrasound (01/10/2015). 01-14-2015 Unclassified (8 sources) [ADDITIONAL REASON] Transition into care - The patient is transitioning into care from an emergency room (01/10/2015. Treated with probiotics for an ulcer. Pt thought it helped the first 2 days but now the pain has returned.) and a summary of care was reviewed . 01-14-2015 Unclassified (8 sources) cough - The onset of the cough has been acute and has been occurring in a persistent pattern for 3 days. The cough is characterized as productive of mucoid sputum. The symptoms have been associated with hoarseness and runny nose. 12-11-2014 Unclassified (8 sources) sore throat - The sore throat has been occurring for 5 days. The symptoms have been associated with cough and difficulty in swallowing, while the symptoms have not been associated with fever (but has been taking ibuprofen). 09-09-2014 Unclassified (8 sources) Unspecified Diagnosis 06-18-2014 Unclassified (8 sources) Sinus headaches - Note for Sinus headaches: A week ago patient woke up and felt weak, with a sight headache, and also felt clammy at times. Patient also had a sore neck, but that has since subsided. Since than patient has been experiencing sinus pressure and not herself. Patient stated, My mom checked if I have a fever and I did not have a fever. 01-10-2014 Unclassified (8 sources) Congestion - Onset was 5 day(s) ago. Note for Rhinitis: Had a sorethroat the first day, but now complains of sinus congestion. 07-07-2012 Unclassified (8 sources) Sinus pain - The sinus pain has been occurring for 1 week. It is characterized as tightness. There has been associated nasal stuffiness. Note for Sinus pain: . 05-11-2012 Unclassified (8 sources) Sinus pain - The sinus pain has been occurring for 1 week. The course has been constant. It is characterized as a pressure sensation (sinus drainage.). 04-28-2012 Unclassified (8 sources) Sinusitis - The onset of the sinusitis has been acute. The pain is located in the right side (behind eye.). Note for Sinusitis: c/o post nasal drip/congestion. Uses nasal spray prn (Flonase?). 07-14-2011 Unclassified (20 sources) Immunization - Gardasil was given. An immunization information sheet was provided. 05-02-2011 Unclassified (8 sources) sore throat - The sore throat has been occurring in an intermittent pattern for 1 month. The course has been unchanged. The symptoms have been associated with difficulty in swallowing and ear pain. 01-07-2011 Unclassified (8 sources) Sinus headaches - The onset of the headache has been gradual and has been occurring in a persistent pattern for 2 weeks (off and on). The headache is described as being located in both sides. Note for Sinus headaches: Patient having wisdom teeth out on Monday, would like to get cleared up before then. No or rhin, cough or stuffy 03-22-2010 Unclassified (7 sources) Cellulitis - Note for Cellulitis: Pt. reports pain, redness, swelling of right thumb x 2 days. No known injury, no open skin area. 05-29-2023 Unclassified (6 sources) Physical examination - The patient is here for a work physical. Note for Physical examination: works for [employer]. No form to fill out. Pt is feeling good. No complaints. 01-26-2024 Unclassified (4 sources) Immunization - Influenza immunization was given. An immunization information sheet was provided. 04-24-2024 Unclassified (3 sources) Referral to Oral Surgeon - Pt. states oral surgeon (Dr. Patterson) is requesting referral for treatment of deviated left nostril. Pt. had jaw surgery 2019 and nasal septum was not placed correctly causing deviation. Pt. experiences inability to clear left nostril of mucous when has URI/sinusitis. Also reports difficulty breathing through left nostril when exercising. Has appointment with Dr. Patterson tomorrow for evaluation/treatment . 08-06-2024 Results Test Name Value Interpretation Reference Range Facility Laboratory - Chemistry and C hemistry - challengeon 10-17-2024 Beta HCG ( test) Ql (U) Negative Normal [facility] [employer] [facility]; WALLast 2 Left - [facility] Work Phone: Urine testOrdered By: Clay Ross on 10-17-2024 HCG ( test) Ql (U) Negative [facility] Comment on above: Very dilute urine sp ecimens, as indicated by a low specificgravity, may not contain it sales representative levels of hCG. If is still suspected, a first morning urinespecimen should be collected 48 hours later and tested. Gastroenterology Visit Repor ton 09-03-2024 Gastroenterology Visit Report [facility] [address] [place] [address] OFFICE VISIT Date of Service: 09/03/24 MR#: [id number] Acct: [id number] Name: MINDY WHITE Rep #: [id number] : 1990 Provider: OPAL romero Age/Sex: 33/F Location: [facility] Status: Signed Intake Vital Signs 06/25/24 15:07 09/03/24 10:07 Height 5 ft 3 in 5 ft 3 in Weight: 141 lb 138 lb 6 oz BMI 25.0 24.5 BP 142/88 H 117/74 Blood Pressure Location Lt brachial Position Sitting Respiration 16 Pulse 84 77 Pulse Oximetry (%) 99 100 Oxygen Delivery Method room air room air Intake Visit Reasons: 10 WK FU Chief Complaint: hemorrhoid External Grinder Required: No Is patient in pain?: No Allergies amoxicillin (From Augmentin) Allergy (Intermediate, Verified 09/03/24 10:02) Other clavulanic acid (From Augmentin) Allergy (Intermediate, Verified 09/03/24 10:02) Other Medications ???Medication ???Instructions ???Recorded ???Confirmed ???Type calcium polycarbophil 625 mg 1,250 mg PO QDAY 09/03/24 09/03/24 History tablet (FiberCon) pantoprazole 40 mg tablet,delayed 40 mg PO QDAY #90 tabs 09/03/24 0 09/03/24 Rx release Nurse's Note: Hemorrhoids were better after a week. Has been weening herself off the Fibercon. PFSH Surgical History History of cholecystectomy Social History Smoking Status: Never smoker alcohol intake: never frequency: 5-6 times per week HPI HPI Chief Complaint: hemorrhoid Details: MINDY WHITE, is a 33 F who presents to the office today for OV 06/25/2024 33y/o female presents for consultation with complaints of external skin tag and indigestion. She reports development of hemorrhoid post delivery of her second child in 2022. Rectal exam today reveals a minute skin tag. She denies any bleeding but does endorse intermittent rectal irritation. We have discussed the benefits of a high-fiber diet with the addition of FiberCon tablets daily. She will also trial Anusol suppositories for 7 days. In terms of indigestion she complains of an epigastric pressure and occasional heartburn. Denies any nausea, vomiting, dysphagia or weight loss. She has noted improvement in the past with OTC Pepcid. She will start Pepcid 20 mg once daily and complete 8 weeks of therapy. She will follow-up in 3 months. If she has return of upper GI symptoms we will proceed with EGD. If she continues to experience irritation secondary to skin tag will arrange for banding. Note: [employer] speech recognition concrete smoother software was used to create portions of this document. Sound-alike and misspelled words, as well as other concrete smoother errors may be contained in the documentation. Patient Instructions: FiberCon 2 tablets once daily with 8 ounces of water after a meal. May take up to 3 weeks for symptom improvement. Pepcid 20mg QD x8 weeks and then discontinue, if symptoms persist will start PPI and schedule EGD - reports the hemorrhoids are so much better - epigastric palpitation, feeling of fullness, intermittent - has been on pepcid 20mg daily since last OV - avoids caffeine - reports episodes have decreased in frequency with pepcid daily, no longer having daily episodes - Holter monitor shows something there but nothing worrisome - she went on a low dose BB and this showed no change - saw a chiropractor and was able to massage down hiatal hernia and this resolved symptom x2 - symptoms did not worsen when - wants to become again and is fearful she will develop symptoms during ROS Const Constitutional: No fatigue, fever(s) or weight change ENT ENT: No difficulty swallowing Gastro GI: Positive for heartburn; No abdominal pain, belching, bloating, change in bowel habits, change in stool character, coffee ground emesis, constipation, cramping, diarrhea, difficulty swallowing, feeling full early, excessive flatus, incontinent of stools, Vomiting blood/hematemesis, Blood in stool, loose stools, Black,tarry stools, nausea/dyspepsia, pain with swallowing, vomiting or other Musc Musculoskeletal: No joint pain Skin Skin: No yellowing of the eye or itchy eyes Psych Psychiatric: No anxiety and No depression Endo Endocrine: No fatigue or weight change Aller/Imm Allergy/Immunologic: No itchy eyes Jackson/Lymp Hematologic/Lymphatic: No easy bleeding or easy bruising Exam Const General: healthy appearing, no acute distress and well developed Nutritional Appearance: average body habitus and well nourished Orientation: alert and oriented x3 HENMT Head: normocephalic Ears: hearing grossly normal bilaterally Mouth: moist mucous membranes Teeth and gingiva: dentition norm (more content not included)... Normal [facility] Gastroenterology Visit Repor ton 06-25-2024 Gastroenterology Visit Report [facility] [address] [place] [address] OFFICE VISIT Date of Service: 06/25/24 MR#: [id number] Acct: [id number] Name: MINDY WHITE Rep #: [id number] : 1990 Provider: OPAL romero Age/Sex: 33/F Location: [facility] Status: Signed Intake Vital Signs 06/25/24 15:07 Height 5 ft 3 in Weight: 141 lb BMI 25.0 BP 142/88 H Blood Pressure Location Lt brachial Position Sitting Pulse 84 Pulse Oximetry (%) 99 Oxygen Delivery Method room air Intake Visit Reasons: Hemorrhoids Chief Complaint: hemorrhoid Is patient in pain?: No Allergies amoxicillin (From Augmentin) Allergy (Intermediate, Verified 06/25/24 15:06) Other clavulanic acid (From Augmentin) Allergy (Intermediate, Verified 06/25/24 15:06) Other [facility] Surgical History History of cholecystectomy Social History Smoking Status: Never smoker alcohol intake: never frequency: 5-6 times per week HPI HPI Chief Complaint: hemorrhoid Details: MINDY WHITE, is a 33 F who presents to the office today for - c/o hemorrhoid since of her child in 2022 - BM are regular - has tried multiple OTC treatments - was at it worst right after deliver - now has a skin tag - seepage - burning and stinging with a BM - denies any bleeding - indigestion or pushing up sensation, occasional HB - denies any nausea - denies any weight loss - denies any emesis - denies any family h/o dysphagia Exam Const General: cooperative, healthy appearing, no acute distress and well developed Nutritional Appearance: average body habitus and well nourished Orientation: alert and oriented x3 HENMT Head: normocephalic Ears: hearing grossly normal bilaterally Mouth: moist mucous membranes Teeth and gingiva: dentition normal Eyes Conjunctivae: conjunctivae normal Sclera: sclerae normal Neck Neck: normal visual inspection, full ROM and trachea midline Resp Effort Inspection: normal respiratory effort, able to speak in complete sentences and symmetric chest movement Auscultation: Bilateral: Clear to Auscultation Cardio Palpation: normal PMI Rate: regular rate Rhythm: regular rhythm Heart Sounds: S1 normal and S2 normal GI Inspection: normal to inspection Auscultation: normal bowel sounds Palpation: soft and no hepatosplenomegaly Rectal Exam: normal sphincter tone Other: small rectal skin tag Skin General: no rashes or lesions noted and turgor normal Neuro General: patient alert and patient oriented x3 Cranial Nerves: other (CN's grossly intact, non-focal exam) Cognition: normal cognition Speech: speech normal Gait: normal gait Extrem General: normal to inspection (no edema noted) Psych Appearance: grossly normal and well kempt Affect: normal affect Attitude: cooperative Thought Process: normal Assessment and Plan Assessment and Plan (1) Skin tag of rectum: Status: Acute (2) Heartburn: Status: Acute Medications: New hydrocortisone acetate (Anusol-HC) 25 mg FL QHS 12 ea 0RF famotidine (Pepcid) 20 mg PO QDAY 90 tabs 1RF Plan 33y/o female presents for consultation with complaints of external skin tag and indigestion. She reports development of hemorrhoid post delivery of her second child in 2022. Rectal exam today reveals a minute skin tag. She denies any bleeding but does endorse intermittent rectal irritation. We have discussed the benefits of a high-fiber diet with the addition of FiberCon tablets daily. She will also trial Anusol suppositories for 7 days. In terms of indigestion she complains of an epigastric pressure and occasional heartburn. Denies any nausea, vomiting, dysphagia or weight loss. She has noted improvement in the past with OTC Pepcid. She will start Pepcid 20 mg once daily and complete 8 weeks of therapy. She will follow-up in 3 months. If she has return of upper GI symptoms we will proceed with EGD. If she continues to experience irritation secondary to skin tag will arrange for banding. Note: [employer] speech recognition concrete smoother software was used to create portions of this document. Sound-alike and misspelled words, as well as other concrete smoother errors may be contained in the documentation. Patient Instructions: FiberCon 2 tablets once daily with 8 ounces of water after a meal. May take up to 3 weeks for symptom improvement. Pepcid 20mg QD x8 weeks and then discontinue, if symptoms persist will start PPI and schedule EGD Anusol suppositories x7 days Plan Details Follow Up: 10 Weeks Coding Level of Care Code Off vis,new,level 4 Diagnoses Skin tag of rectum K64.4 Heartburn R12 Clinical Quality Measures Smoking Screening (more content not included)... Normal [facility] Laboratory - Microbiology an d Antimicrobial susceptibilityon 11-26-2022 S. pneumoniae Ag LA Ql (Unsp spec) Negative Normal [facility]. RPRon 10-31-2022 Reagin Ab RPR Ql (S) Non-Reactive Normal Non-Reactive [facility] ([place]) Comment on above: Result Comment: The RPR test is a non-treponemal assay useful as an aid in the diagnosis of primary and secondary syphilis. It converts to positive generally within 2 weeks after the appearance of a lesion. This test is also useful for monitoring response to antibiotic therapy. A positive RPR screening test will be followed by the FTA ABS test. False positive RPR tests may occur in 1) patients with underlying autoimmune disorders, 2) elderly patients, 3) , and 4) other conditions with abnormal serum globulins. Performed By: #### A MERCED, ANSG, CBC, ABOG, ADIFF #### [place] [id number] #### RPR #### [address] 10-30-2022 Hematocrit (Bld) [Volume fraction] 28.6 % Low 37.0-47.0 [facility] ([place]) Comment on above: Performed By: #### H H ####[address] [place] [place] [address] Hgb 9.7 G/dL Low 12.0-16.0 [facility] ([place]) Comment on above: Performed By: #### H H ####[id number] [place] [id number] LABORATORYOrdered By: Nanci Reyes on 10-30-2022 Hematocrit (Bld) [Volume fraction] 28.6 % Invalid Interpretation Code 37.0 - 47.0 % AO Workflow SS Hemoglobin (Bld) [Mass/Vol] 9.7 G/dL Invalid Interpretation Code 12.0 - 16.0 G/dL AO Workflow SS .Auto Diffon 10-29-2022 Basophil, Absolute 0.0 10 3/mcL Normal 0.0-0.2 [facility] ([place]) Comment on above: Performed By: #### A MERCED, ANSG, CBC, ABOG, ADIFF #### [place] [address] #### RPR #### [address] [address] Basophils/100 WBC (Bld) 0.3 % Normal 0.0-2.5 [facility] ([place]) Comment on above: Performed By: #### A MERCED, ANSG, CBC, ABOG, ADIFF #### [address] [address] #### RPR #### [address] [address] Eosinophil, Absolute 0.0 10 3/mcL Normal 0.0-0.4 [facility] ([place]) Comment on above: Performed By: #### A MERCED, ANSG, CBC, ABOG, ADIFF #### [address] [address] #### RPR #### [address] [address] Eosinophils/100 WBC (Bld) 0.1 % Normal 0.0-7.0 [facility] ([place]) Comment on above: Performed By: #### A MERCED, ANSG, CBC, ABOG, ADIFF #### [address] [address] #### RPR #### [address] [address] Lymphocyte, Absolute 1.6 10 3/mcL Normal 0.8-3.9 [facility] ([place]) Comment on above: Performed By: #### A MERCED, ANSG, CBC, ABOG, ADIFF #### [address] [address] #### RPR #### [address] [address] Lymphocytes/100 WBC (Bld) 10.5 % Normal 10.0-50.0 [facility] ([place]) Comment on above: Performed By: #### A MERCED, ANSG, CBC, ABOG, ADIFF #### [address] [address] #### RPR #### [address] [address] Monocyte, Absolute 0.8 10 3/mcL Normal 0.2-1.0 [facility] ([place]) Comment on above: Performed By: #### A MERCED, ANSG, CBC, ABOG, ADIFF #### [address] [address] #### RPR #### [address] [address] Monocytes/100 WBC (Bld) 5.3 % Normal 1.7-13.0 [facility] ([place]) Comment on above: Performed By: #### A MERCED, ANSG, CBC, ABOG, ADIFF #### [address] [address] #### RPR #### [address] [address] Neutrophils/100 WBC (Bld) 83.8 % High 37.0-80.0 [facility] ([place]) Comment on above: Performed By: #### A MERCED, ANSG, CBC, ABOG, ADIFF #### [address] [address] #### RPR #### [address] [address] .NEUABSon 10-29-2022 Neutrophil, Absolute 12.8 10 3/mcL High 2.9-6.2 A [facility] ([place]) Comment on above: Performed By: #### A MERCED, ANSG, CBC, ABOG, ADIFF #### [place] [address] #### RPR #### [address] [address] CBCon 10-29-2022 Erythrocyte distribution width (RBC) [Ratio] 13.6 % Normal 11.5-14.5 [facility] ([place]) Comment on above: Performed By: #### A MERCED, ANSG, CBC, ABOG, ADIFF #### [place] [address] #### RPR #### [place] [address] Hematocrit (Bld) [Volume fraction] 36.2 % Low 37.0-47.0 [facility] ([place]) Comment on above: Performed By: #### A MERCED, ANSG, CBC, ABOG, ADIFF #### [place] [address] #### RPR #### [place] [address] Hgb 11.9 G/dL Low 12.0-16.0 [facility] ([place]) Comment on above: Performed By: #### A MERCED, ANSG, CBC, ABOG, ADIFF #### [place] [address] #### RPR #### [place] [address] MCH (RBC) [Entitic mass] 29.5 pg Normal 27.0-31.2 [facility] ([place]) Comment on above: Performed By: #### A MERCED, ANSG, CBC, ABOG, ADIFF #### [place] [address] #### RPR #### [place] [address] MCHC 32.9 G/dL Low 33.0-37.0 [facility] ([place]) Comment on above: Performed By: #### A MERCED, ANSG, CBC, ABOG, ADIFF #### [place] [address] #### RPR #### [address] [address] MCV (RBC) [Entitic vol] 89.5 fL Normal 80.0-94.0 [facility] ([place]) Comment on above: Performed By: #### A MERCED, ANSG, CBC, ABOG, ADIFF #### [place] [address] #### RPR #### [address] [address] Platelet 237 10 3/mcL Normal 130-400 [facility] ([place]) Comment on above: Performed By: #### A MERCED, ANSG, CBC, ABOG, ADIFF #### [place] [address] #### RPR #### [address] [address] Platelet mean volume (Bld) [Entitic vol] 8.4 fL Normal 7.4-10.4 [facility] ([place]) Comment on above: Performed By: #### A MERCED, ANSG, CBC, ABOG, ADIFF #### [place] [address] #### RPR #### [place] [address] RBC 4.05 10 6/mcL Low 4.20-5.40 [facility] ([place]) Comment on above: Performed By: #### A MERCED, ANSG, CBC, ABOG, ADIFF #### [place] [address] #### RPR #### [place] [address] WBC 15.3 10 3/mcL High 4.6-10.8 [facility] ([place]) Comment on above: Performed By: #### A MERCED, ANSG, CBC, ABOG, ADIFF #### [place] [address] #### RPR #### [place] [id number] Gel ABOon 10-29-2022 ABO/Rh Interp Negative Invalid Interpretation Code [facility] ([place]) Comment on above: Performed By: #### A MERCED, ANSG, CBC, ABOG, ADIFF #### [place] [id number] [place], [place] [address] #### RPR #### [facility] [address] [place] [address] Gel ABSon 10-29-2022 Antibody Screen Gel Negative Normal Replaced by [facility] ([place]) Comment on above: Performed By: #### A MERCED, ANSG, CBC, ABOG, ADIFF #### [address] [address] #### RPR #### [address] [address] LABORATORYOrdered By: Nanci Reyes on 10-28-2022 ABO/Rh Interp Negative Invalid Interpretation Code AO BB SS Antibody Screen Gel Negative ABSC (10/28/22 11:45 PM) Invalid Interpretation Code AO BB SS Basophil, Absolute 0.0 103/mcL Invalid Interpretation Code 0.0 - 0.2 10^3/mcL AO Workflow SS Basophils/100 WBC (Bld) 0.3 % Invalid Interpretation Code 0.0 - 2.5 % AO Workflow SS Eosinophil, Absolute 0.0 103/mcL Invalid Interpretation Code 0.0 - 0.4 10^3/mcL AO Workflow SS Eosinophils/100 WBC (Bld) 0.1 % Invalid Interpretation Code 0.0 - 7.0 % AO Workflow SS Erythrocyte distribution width (RBC) [Ratio] 13.6 % Invalid Interpretation Code 11.5 - 14.5 % AO Workflow SS Hematocrit (Bld) [Volume fraction] 36.2 % Invalid Interpretation Code 37.0 - 47.0 % AO Workflow SS Hemoglobin (Bld) [Mass/Vol] 11.9 G/dL Invalid Interpretation Code 12.0 - 16.0 G/dL AO Workflow SS Lymphocyte, Absolute 1.6 103/mcL Invalid Interpretation Code 0.8 - 3.9 10^3/mcL AO Workflow SS Lymphocytes/100 WBC (Bld) 10.5 % Invalid Interpretation Code 10.0 - 50.0 % AO Workflow SS MCH (RBC) [Entitic mass] 29.5 pg Invalid Interpretation Code 27.0 - 31.2 pg AO Workflow SS MCHC 32.9 G/dL Invalid Interpretation Code 33.0 - 37.0 G/dL AO Workflow SS MCV (RBC) [Entitic vol] 89.5 fL Invalid Interpretation Code 80.0 - 94.0 fL AO Workflow SS Monocyte, Absolute 0.8 103/mcL Invalid Interpretation Code 0.2 - 1.0 10^3/mcL AO Workflow SS Monocytes/100 WBC (Bld) 5.3 % Invalid Interpretation Code 1.7 - 13.0 % AO Workflow SS Neutrophil, Absolute 12.8 103/mcL Invalid Interpretation Code 2.9 - 6.2 10^3/mcL AO Workflow SS Neutrophils/100 WBC (Bld) 83.8 % Invalid Interpretation Code 37.0 - 80.0 % AO Workflow SS Platelet mean volume (Bld) [Entitic vol] 8.4 fL Invalid Interpretation Code 7.4 - 10.4 fL AO Workflow SS Platelets (Bld) [#/Vol] 237 103/mcL Invalid Interpretation Code 130 - 400 10^3/mcL AO Workflow SS RBC (Bld) [#/Vol] 4.05 106/mcL Invalid Interpretation Code 4.20 - 5.40 10^6/mcL AO Workflow SS WBC (Bld) [#/Vol] 15.3 103/mcL Invalid Interpretation Code 4.6 - 10.8 10^3/mcL AO Workflow SS LABORATORYOrdered By: Naomi Virk on 10-28-2022 ABO and Rh group Nom (Bld) A negative (10/28/22 9:28 PM) [facility] Group B Strep Date Performed [id number] [facility] Group B Strep, External Positive (10/28/22 9:28 PM) [facility] Hepatitis B Date Performed [id number] [facility] Hepatitis B, External Negative (10/28/22 9:28 PM) [facility] HIV Antibodies, External Negative (10/28/22 9:28 PM) [facility] RPR, External Nonreactive (10/28/22 9:28 PM) [facility] Rubella, External Immune (10/28/22 9:28 PM) [facility] GBSPCRon 10-06-2022 Group B Strep (PCR) Positive Abnormal Negative Replaced by [facility] ([place]) Comment on above: Performed By: #### G BSPCR #### [facility] [address] [place], [place] [address] Group B Strep PCR Int Normal [facility] ([place]) Comment on above: Result Comment: Grou p B Streptococcus DNA detected by real- time PCR. A positive result does not necessarily indicate the presence of viable organisms. Results from the RICH GBS Assay should be used as an adjunct to clinical observations and other informaiton available to the physician. The RICH GBS Assay does not provide susceptibility results. See Below Performed By: #### G BSPCR #### [facility] [address] [place], [place] [address] LABORATORYOrdered By: Cornell Lucas on 10-05-2022 Group B Strep PCR Int Group B Streptococ cus DNA detected by real-time PCR. A positive result does not necessarily indicate the presence of viable organisms. Results from the RICH GBS Assay should be used as an adjunct to clinical observations and other informaiton available to the physician. The RICH GBS Assay does not provide susceptibility results. Invalid Interpretation Code AO Auto Urine SS S. agalactiae DNA DARWIN+probe Ql (Unsp spec) Positive *ABN* (10/05/22 4:51 PM) Invalid Interpretation Code Negative AO Auto Urine SS .Auto Diffon 08-06-2022 Basophil, Absolute 0.0 10 3/mcL Normal 0.0-0.3 [facility] ([place]) Comment on above: Performed By: #### A DIFF, ANEU, RPR, CBC, GLU1P ####[address] [address] Basophils/100 WBC (Bld) 0.4 % Normal 0.0 - 2.5 % [facility] ([place]) Comment on above: Performed By: #### A DIFF, ANEU, RPR, CBC, GLU1P ####[address] [address] Eosinophil, Absolute 0.0 10 3/mcL Normal 0.0-0.7 [facility] ([place]) Comment on above: Performed By: #### A DIFF, ANEU, RPR, CBC, GLU1P ####[address] [address] Eosinophils/100 WBC (Bld) 0.3 % Normal 0.0 - 6.0 % [facility] ([place]) Comment on above: Performed By: #### A DIFF, ANEU, RPR, CBC, GLU1P ####[address] [address] Lymphocyte, Absolute 1.2 10 3/mcL Normal 0.9-4.3 [facility] ([place]) Comment on above: Performed By: #### A DIFF, ANEU, RPR, CBC, GLU1P ####[address] [address] Lymphocytes/100 WBC (Bld) 14.3 % Abnormal 20.0 - 40.0 % [facility] ([place]) Comment on above: Performed By: #### A DIFF, ANEU, RPR, CBC, GLU1P ####[address] [address] Monocyte, Absolute 0.7 10 3/mcL Normal 0.1-1.4 [facility] ([place]) Comment on above: Performed By: #### A DIFF, ANEU, RPR, CBC, GLU1P ####[address] [address] Monocytes/100 WBC (Bld) 7.8 % Normal 2.0 - 13.0 % [facility] ([place]) Comment on above: Performed By: #### A DIFF, ANEU, RPR, CBC, GLU1P ####[address] [address] Neutrophils/100 WBC (Bld) 77.2 % Abnormal 50.0 - 75.0 % [facility] ([place]) Comment on above: Performed By: #### A DIFF, ANEU, RPR, CBC, GLU1P ####[place] [address] .NEUABSon 08-06-2022 Neutrophil, Absolute 6.5 10 3/mcL Normal 2.3-8.1 [facility] ([place]) Comment on above: Performed By: #### A DIFF, ANEU, RPR, CBC, GLU1P ####[place] [address] CBCon 08-06-2022 Erythrocyte distribution width (RBC) [Ratio] 12.4 % Normal 11.5 - 15.5 % [facility].; [facility] Comment on above: Performed By: #### A DIFF, ANEU, RPR, CBC, GLU1P ####[place] [address] Hematocrit (Bld) [Volume fraction] 35.6 % Normal 34.0 - 46.0 % [facility].; [facility]. Comment on above: Performed By: #### A DIFF, ANEU, RPR, CBC, GLU1P ####[place] [address] Hgb 11.8 G/dL Low 12.0-16.0 [facility] ([place]) Comment on above: Performed By: #### A DIFF, ANEU, RPR, CBC, GLU1P ####[place] [address] MCH (RBC) [Entitic mass] 31.9 pg Normal 27.0 - 33.0 pg [facility].; [facility] Comment on above: Performed By: #### A DIFF, ANEU, RPR, CBC, GLU1P ####[place] [address] MCHC 33.1 G/dL Normal 32.0-36.0 [facility] ([place]) Comment on above: Performed By: #### A DIFF, ANEU, RPR, CBC, GLU1P ####[place] [address] MCV (RBC) [Entitic vol] 96.5 fL Normal 80.0 - 99.0 fL [facility]; [facility] Comment on above: Performed By: #### A DIFF, ANEU, RPR, CBC, GLU1P ####[place] [address] Platelet 214 10 3/mcL Normal 150-450 [facility] ([place]) Comment on above: Performed By: #### A DIFF, ANEU, RPR, CBC, GLU1P ####[place] [address] Platelet mean volume (Bld) [Entitic vol] 8.3 fL Normal 6.6 - 10.5 fL [facility]; [facility]. Comment on above: Performed By: #### A DIFF, ANEU, RPR, CBC, GLU1P ####[place] [address] RBC 3.69 10 6/mcL Low 4.10-5.30 [facility] ([place]) Comment on above: Performed By: #### A DIFF, ANEU, RPR, CBC, GLU1P ####[place] [address] WBC 8.4 10 3/mcL Normal 4.5-10.8 [facility] ([place]) Comment on above: Performed By: #### A DIFF, ANEU, RPR, CBC, GLU1P ####[place] [address] [id number] 08-06-2022 Glucose [Mass/Vol] 61 mg/dL Abnormal 70 - 139 mg/dL [facility]; [facility] Comment on above: Performed By: #### A DIFF, ANEU, RPR, CBC, GLU1P ####[place] [address] RPRon 08-06-2022 Reagin Ab RPR Ql (S) Non-Reactive Normal Non-Reactive [facility] ([place]) Comment on above: Result Comment: The RPR test is a non-treponemal assay useful as an aid in the diagnosis of primary and secondary syphilis. It converts to positive generally within 2 weeks after the appearance of a lesion. This test is also useful for monitoring response to antibiotic therapy. A positive RPR screening test will be followed by the FTA ABS test. False positive RPR tests may occur in 1) patients with underlying autoimmune disorders, 2) elderly patients, 3) , and 4) other conditions with abnormal serum globulins. Performed By: #### A DIFF, ANEU, RPR, CBC, GLU1P ####[place] [address] Laboratory - Hematology and Cell countson 08-05-2022 Basophils (Bld) [#/Vol] 0.0 {10^3/mcL} Normal 0.0 - 0.3 {10^3/mcL} [employer] [facility] [employer] [facility] [employer] Display System [facility]. Work Phone: Eosinophils (Bld) [#/Vol] 0.0 {10^3/mcL} Normal 0.0 - 0.7 {10^3/mcL} [employer]; [facility] [facility] [employer]. Work Phone: Hemoglobin (Bld) [Mass/Vol] 11.8 g/dL Abnormal 12.0 - 16.0 g/dL [facility] [employer] Display System [facility]; [facility] [facility] [employer] Display System [facility]. Lymphocytes (Bld) [#/Vol] 1.2 {10^3/mcL} Normal 0.9 - 4.3 {10^3/mcL} [employer]; [facility] [facility] [employer] Work Phone: MCHC (RBC) [Mass/Vol] 33.1 g/dL Normal 32.0 - 36.0 g/dL [employer]ube; [employer] [facility] [employer] Monocytes (Bld) [#/Vol] 0.7 {10^3/mcL} Normal 0.1 - 1.4 {10^3/mcL} [employer] [facility].; [employer] [facility] [employer] [facility]. Work Phone: Neutrophils (Bld) [#/Vol] 6.5 {10^3/mcL} Normal 2.3 - 8.1 {10^3/mcL} [employer] [facility].; [facility] [employer] [employer]. Work Phone: Platelets (Bld) [#/Vol] 214 {10^3/mcL} Normal 150 - 450 {10^3/mcL} [facility].; [employer] [facility] [employer]. RBC (Bld) [#/Vol] 3.69 {10^6/mcL} Abnormal 4.10 - 5.30 {10^6/mcL} [employer] [facility].; [facility] [facility] [employer]. WBC (Bld) [#/Vol] 8.4 {10^3/mcL} Normal 4.5 - 10 .8 {10^3/mcL} [employer].; [facility] [employer] [facility] [employer]. Laboratory - Microbiology an d Antimicrobial susceptibilityon 08-05-2022 Reagin Ab RPR Ql (S) Oxk-Pmcyanng-Gwc-Re act phil Normal [facility] [employer]; [facility] [facility] [employer]. No Panel Informationon 08-05 Eosinophil, Absolute 0.0 {10^3/mcL} Normal 0.0 - 0.7 {10^3/mcL} [employer].; [facility] [employer] [facility] [employer]. Work Phone: Bacteria Ur Culton 3 Bacteria identified Cx Nom (U) ORGANISM ID: 1 >=100,000 CFU/ml Mixed microbiota Streptococcus agalactiae (Group B streptococcus) was identified in this specimen, which is clinically relevant if the individual is . No further workup. Mixed microbiota can be due to???urine???contamina tion with skin bacteria at time of collection or presence of a long-term urinary catheter. If a new culture is needed, please consider re-education of the patient on proper midstream collection technique or straight catheterization for???urine???collecti on. Normal [facility] Comment on above: Performed By: #### 6 30-4 #### [facility] CLIA [id number] [place] [address] [place] Laboratory - Microbiology an d Antimicrobial susceptibilityon 08-03-2022 Bacteria identified Cx Nom (U) See Note Abnormal [facility].; [facility] - [facility]. Work Phone: URINE CULTURE [CCL]on 2022 Bacteria identified Cx Nom (U) URCUL See Results Below See Below CULTURE, URINE MIXED MICROBIOTA >=100,000 CFU/ml Mixed microbiota Streptococcus agalactiae (Group B streptococcus) was identified in this specimen No further workup. Mixed microbiota can be due to???urine???contamina tion with s SOURCE: URINE [facility] [place] [address] Jonh Read III, M.D. [id number] Normal [facility] Comment on above: Performed By: #### 2 [id number] #### [facility],[address] [place], [place] [id number] [employer] Cytology Reporton 2021 [employer] Cytology Report . Pathology Reports Accession: Collected Date/Time: Received Date/Time: Pathologist: [id number] 04/19/2022 09:25 EST 04/19/2022 18:00 EST C[employer] Cytology Report SPECIMEN: Specimen Description: Liquid Prep w/ HPV Specimen: Cervical Screening or Diagnostic: Screening RELEVANT HISTORY: LMP: 01-22-22 SPECIMEN ADEQUACY: SATISFACTORY FOR EVALUATION Endocervical/Transform ational zone component absent/insufficient INTERPRETATION/RESULTS : NEGATIVE FOR INTRAEPITHELIAL LESION OR MALIGNANCY HIGH RISK HPV TESTING: Event Code Result HPV Interp See Interp HPVN HPV Interp Text: High Risk HPV Typing: NEGATIVE HPV types 16, 18, 31, 33, 35, 39, 45, 51, 52, 56, 58, 59, 66 and 68 DNA were undetectable or below the pre-set threshold. The cindi High-Risk HPV DNA Test is not intended for use as a screening device for Pap normal women under age 30 and is not intended to substitute for regular Pap screening. The cindi High-Risk HPV DNA Test is designed to augment existing methods for the detection of cervical disease and should be used in conjunction with clinical information derived from other diagnostic and screening tests, physical examinations and full medical history in accordance with appropriate patient management procedures. NOTE: A negative result does not preclude the presence of HPV infection because results depend on adequate specimen collection, absence of inhibitors and sufficient DNA to be detected. As of: 04/22/22 15:31 EST COMMENT: This Pap Test was successfully processed and evaluated with the assistance of the DevtapPrep Test Imaging System. Pathology Reports Accession: Collected Date/Time: Received Date/Time: Pathologist: [id number] 04/19/2022 09:25 EST 04/19/2022 18:00 EST Electronically Signed by Pathology report verified by [facility] Screened by: KK Electronically signed by Estela REDDY (ASCP) Sign-Out Date: 04/22/2022 15:32 Performing Lab: [facility], [address] [place] [address] Pathology Dept Disclaimer The Pap test is a screening test for cervical cancer. As evidenced by published data, it is subject to both inherent false negative and false positive results. Your patient's results should be interpreted in context with pertinent clinical history including gynecological examination. Normal [facility] ([place]) HPVon 04-22-2022 HPV Interp Normal See Interp HPVN [facility] ([place]) Comment on above: Order Comment: Order placed by AP_HPV_ORDER rule from [id number] Result Comment: High Risk HPV Typing: NEGATIVE HPV types 16, 18, 31, 33, 35, 39, 45, 51, 52, 56, 58, 59, 66 and 68 DNA were undetectable or below the pre-set threshold. The cindi High-Risk HPV DNA Test is not intended for use as a screening device for Pap normal women under age 30 and is not intended to substitute for regular Pap screening. The cindi High-Risk HPV DNA Test is designed to augment existing methods for the detection of cervical disease and should be used in conjunction with clinical information derived from other diagnostic and screening tests, physical examinations and full medical history in accordance with appropriate patient management procedures. NOTE: A negative result does not preclude the presence of HPV infection because results depend on adequate specimen collection, absence of inhibitors and sufficient DNA to be detected. See Inter HPVN Performed By: #### H PV #### [place] [address] HPV Source Cervix Normal [facility] ([place]) Comment on above: Order Comment: Order placed by AP_HPV_ORDER rule from [id number] Performed By: #### H PV #### [place] [address] VARISon 04-22-[address] Positive Normal [facility] ([place]) Comment on above: Result Comment: INTE RPRETATION OF VARICELLA IMMUNE STATUS IgG BY EIA: Negative: No detectable VZV IgG antibody. Positive: VZV IgG antibody Detected. If clinically indicated, order Varicella IgM to rule out recent infection. Equivocal: Equivocal for antibodies to VZV. Suggest repeat testing in 10-14 days. Performed By: #### H PV #### [place] [address] .Auto Diffon 04-21-2022 Basophil, Absolute 0.0 10 3/mcL Normal 0.0-0.3 [facility] ([place]) Comment on above: Performed By: #### A BSGEL, VARIS, TSH, RPR, HIV, DATIGG, HBSAB, ABOGEL ####[place] [address] Basophils/100 WBC (Bld) 0.3 % Normal 0.0 - 2.5 % [facility] ([place]) Comment on above: Performed By: #### A BSGEL, VARIS, TSH, RPR, HIV, DATIGG, HBSAB, ABOGEL ####[place] [address] Eosinophil, Absolute 0.0 10 3/mcL Normal 0.0-0.7 [facility] ([place]) Comment on above: Performed By: #### A BSGEL, VARIS, TSH, RPR, HIV, DATIGG, HBSAB, ABOGEL ####[address] [address] Eosinophils/100 WBC (Bld) 0.3 % Normal 0.0 - 6.0 % [facility] ([place]) Comment on above: Performed By: #### A BSGEL, VARIS, TSH, RPR, HIV, DATIGG, HBSAB, ABOGEL ####[address] [address] Lymphocyte, Absolute 1.5 10 3/mcL Normal 0.9-4.3 [facility] ([place]) Comment on above: Performed By: #### A BSGEL, VARIS, TSH, RPR, HIV, DATIGG, HBSAB, ABOGEL ####[address] [address] Lymphocytes/100 WBC (Bld) 18.1 % Abnormal 20.0 - 40.0 % [facility] ([place]) Comment on above: Performed By: #### A BSGEL, VARIS, TSH, RPR, HIV, DATIGG, HBSAB, ABOGEL ####[address] [address] Monocyte, Absolute 0.6 10 3/mcL Normal 0.1-1.4 [facility] ([place]) Comment on above: Performed By: #### A BSGEL, VARIS, TSH, RPR, HIV, DATIGG, HBSAB, ABOGEL ####[address] [address] Monocytes/100 WBC (Bld) 7.1 % Normal 2.0 - 13.0 % [facility] ([place]) Comment on above: Performed By: #### A BSGEL, VARIS, TSH, RPR, HIV, DATIGG, HBSAB, ABOGEL ####[address] [address] Neutrophils/100 WBC (Bld) 74.2 % Normal 50.0 - 75.0 % [facility] ([place]) Comment on above: Performed By: #### A BSGEL, VARIS, TSH, RPR, HIV, DATIGG, HBSAB, ABOGEL ####[address] [address] .NEUABSon 04-21-2022 Neutrophil, Absolute 6.3 10 3/mcL Normal 2.3-8.1 [facility] ([place]) Comment on above: Performed By: #### A BSGEL, VARIS, TSH, RPR, HIV, DATIGG, HBSAB, ABOGEL ####[address] [address] ABO/Rh (Gel)on 04-21-2022 ABO/Rh Interp Negative Invalid Interpretation Code [facility] ([place]) Comment on above: Performed By: #### H PV #### [address] [address] ABS (Gel)on 04-21-2022 ABSC Interp (Gel) Negative Normal [facility] ([place]) Comment on above: Performed By: #### H PV #### [address] [address] CBCon 04-21-2022 Erythrocyte distribution width (RBC) [Ratio] 14.1 % Normal 11.5 - 15.5 % [facility], [facility].; [facility], [facility]. Comment on above: Performed By: #### A BSGEL, VARIS, TSH, RPR, HIV, DATIGG, HBSAB, ABOGEL ####[place] [address] Hematocrit (Bld) [Volume fraction] 38.5 % Normal 34.0 - 46.0 % [facility], [facility].; [facility]. Comment on above: Performed By: #### A BSGEL, VARIS, TSH, RPR, HIV, DATIGG, HBSAB, ABOGEL ####[address] [address] Hgb 13.0 G/dL Normal 12.0-16.0 [facility] ([place]) Comment on above: Performed By: #### A BSGEL, VARIS, TSH, RPR, HIV, DATIGG, HBSAB, ABOGEL ####[address] [address] MCH (RBC) [Entitic mass] 31.3 pg Normal 27.0 - 33.0 pg [facility]; [facility]. Comment on above: Performed By: #### A BSGEL, VARIS, TSH, RPR, HIV, DATIGG, HBSAB, ABOGEL ####[place] [address] MCHC 33.8 G/dL Normal 32.0-36.0 [facility] ([place]) Comment on above: Performed By: #### A BSGEL, VARIS, TSH, RPR, HIV, DATIGG, HBSAB, ABOGEL ####[place] [address] MCV (RBC) [Entitic vol] 92.7 fL Normal 80.0 - 99.0 fL [facility]; [facility]. Comment on above: Performed By: #### A BSGEL, VARIS, TSH, RPR, HIV, DATIGG, HBSAB, ABOGEL ####[place] [id number] Platelet 234 10 3/mcL Normal 150-450 [facility] ([place]) Comment on above: Performed By: #### A BSGEL, VARIS, TSH, RPR, HIV, DATIGG, HBSAB, ABOGEL ####[place] [address] Platelet mean volume (Bld) [Entitic vol] 8.4 fL Normal 6.6 - 10.5 fL [facility].; [facility]. Comment on above: Performed By: #### A BSGEL, VARIS, TSH, RPR, HIV, DATIGG, HBSAB, ABOGEL ####[place] [address] RBC 4.15 10 6/mcL Normal 4.10-5.30 [facility] ([place]) Comment on above: Performed By: #### A BSGEL, VARIS, TSH, RPR, HIV, DATIGG, HBSAB, ABOGEL ####[place] [id number] [place] [address] WBC 8.5 10 3/mcL Normal 4.5-10.8 [facility] ([place]) Comment on above: Performed By: #### A BSGEL, VARIS, TSH, RPR, HIV, DATIGG, HBSAB, ABOGEL ####[place] [address] CTPCRon 04-21-2022 C. trachomatis Interp Normal See CT Interp N [facility] ([place]) Comment on above: Result Comment: C. t rachomatis DNA not detected. Specimen is presumptive negative for C. trachomatis. A negative result does not preclude C. trachomatis infection because results depend on adequate specimen collection, absence of inhibitors, and sufficient DNA to be detected. See CT Interp N Performed By: #### H PV #### [place] [address] C.trachomatis PCR Negative Normal Negative [facility] ([place]) Comment on above: Result Comment: Maxime lucero (PCR) assay performed on the Tessy Cindi 4800 system. Performed By: #### H PV #### [place] [address] Chlam Source Vaginal Normal [facility] ([place]) Comment on above: Performed By: #### H PV #### [place] [address] DATIGGon 04-21-2022 MANJIT IgG Interp (Gel) Negative Normal [facility] ([place]) Comment on above: Order Comment: Order placed by AP_HPV_ORDER rule from [id number] Performed By: #### H PV #### [place] [address] HBSABon 04-21-2022 Hep B Surf Ab <3.1 Low >=10.0 [facility] ([place]) Comment on above: Result Comment: 0 to < 10.0 mIU/mL Nonreactive Patient is considered not to have protective immunity to HBV infection >/= 10.0 mIU/mL Reactive Patient is considered to have protective immunity to HBV infection. This assay is traceable to the World Health Organization (WHO) Hepatitis B Immunoglobulin 1st International Reference Preparation (1976). The accepted criteria for immunity to HBV is anti-HBs activity >/= 10.0 mIU/mL, as defined by the WHO International Reference Preparation. Performed By: #### H PV #### [address] [address] HIVon 04-21-2022 HIV 1/2 Ab Normal Non-Reactive [facility] ([place]) Comment on above: Result Comment: Non- Reactive Specimen is negative for anti-HIV-1 and anti-HIV-2. Performed By: #### H PV #### [address] [address] [id number] 04-21-2022 GC PCR Source Vaginal Normal [facility] ([place]) Comment on above: Performed By: #### H PV #### [address] [address] N. gonorrhoeae (PCR) Negative Normal Negative [facility] ([place]) Comment on above: Result Comment: Mole cular (PCR) assay performed on the Tessy Cindi [id number] System. Performed By: #### H PV #### [address] [address] N. gonorrhoeae Interp Normal See NG Interp N [facility] ([place]) Comment on above: Result Comment: N. g onorrhoeae DNA not detected. Specimen is presumptive negative for N. gonorrhoeae. A negative result does not preclude Neisseria gonorrhoeae infection because results depend on adequate specimen collection, absence of inhibitors, and sufficient DNA to be detected. See NG Interp N Performed By: #### H PV #### [address] [address] RPRon 04-21-2022 Reagin Ab RPR Ql (S) Non-Reactive Normal Non-Reactive [facility] ([place]) Comment on above: Result Comment: The RPR test is a non-treponemal assay useful as an aid in the diagnosis of primary and secondary syphilis. It converts to positive generally within 2 weeks after the appearance of a lesion. This test is also useful for monitoring response to antibiotic therapy. A positive RPR screening test will be followed by the FTA ABS test. False positive RPR tests may occur in 1) patients with underlying autoimmune disorders, 2) elderly patients, 3) , and 4) other conditions with abnormal serum globulins. Performed By: #### H PV #### [address] [address] TSHon 04-21-2022 TSH 1.614 mIU/mL Normal 0.550-4.780 [facility] ([place]) Comment on above: Result Comment: No te - New Reference Range in effect 19 Performed By: #### A BSGEL, VARIS, TSH, RPR, HIV, DATIGG, HBSAB, ABOGEL ####[place] [address] Laboratory - Blood bankon ABO and Rh group Nom (Bld) Blood group A Rh(D) negative Abnormal [facility]; [facility]ITAL[facility] [employer] [facility] Blood group antibody screen Ql Negative Normal [facility] [employer] [facility]; [facility] [employer] [facility] [employer] [facility]. Direct antiglobulin test.IgG specific reagent Ql (RBC) Negative Normal [facility] Center[facility]; [employer] [facility] [employer] [facility] Work Phone: Laboratory - Chemistry and C hemistry - challengeon 04-20-2022 TSH Qn 1.614 m[IU]/L Normal 0.550 - 4.780 m[iU]/mL [facility]; [employer] [facility] [employer] [facility]. Laboratory - Hematology and Cell countson 04-20-2022 Basophils (Bld) [#/Vol] 0.0 {10^3/mcL} Normal 0.0 - 0.3 {10^3/mcL} [employer] [facility]; [facility] [employer] [facility] [employer] [facility] Work Phone: Eosinophils (Bld) [#/Vol] 0.0 {10^3/mcL} Normal 0.0 - 0.7 {10^3/mcL} [facility] Center[facility]; [facility] [employer] [facility] Work Phone: Hemoglobin (Bld) [Mass/Vol] 13.0 g/dL Normal 12.0 - 16.0 g/dL [facility].; [facility] Lymphocytes (Bld) [#/Vol] 1.5 {10^3/mcL} Normal 0.9 - 4.3 {10^3/mcL} [facility].; [facility] Work Phone: MCHC (RBC) [Mass/Vol] 33.8 g/dL Normal 32.0 - 36.0 g/dL [facility].; [facility] Monocytes (Bld) [#/Vol] 0.6 {10^3/mcL} Normal 0.1 - 1.4 {10^3/mcL} [facility].; [place] [employer] [facility] Work Phone: Neutrophils (Bld) [#/Vol] 6.3 {10^3/mcL} Normal 2.3 - 8.1 {10^3/mcL} [facility].; [place] [employer] [facility]Open [facility]. Work Phone: Platelets (Bld) [#/Vol] 234 {10^3/mcL} Normal 150 - 450 {10^3/mcL} [facility].; [facility]. RBC (Bld) [#/Vol] 4.15 {10^6/mcL} Normal 4.10 - 5.30 {10^6/mcL} [facility] [employer] [facility].; [facility] [employer] [facility]. WBC (Bld) [#/Vol] 8.5 {10^3/mcL} Normal 4.5 - 10 .8 {10^3/mcL} [facility] [employer] [facility].; [facility] [employer] [facility] Laboratory - Microbiology an d Antimicrobial susceptibilityon 04-20-2022 HBV surface Ab Qn (S) <3.1 Abnormal [facility].; [facility], Inc. HIV 1+2 Ab IA Ql Jqv-Dyfoszdj-NZ Normal [facility], [facility].; [facility], Inc. HIV 1+2 Ab IA Ql Negative Normal [facility], [facility].; [facility], Inc. Reagin Ab RPR Ql (S) Vtz-Rdirdhvr-Mip-Re act phil Normal [facility].; [facility], Inc. VZV IgG IA Ql (S) Positive Normal [facility]ics[facility].; [facility], [facility]. No Panel Informationon 04-20 Eosinophil, Absolute 0.0 {10^3/mcL} Normal 0.0 - 0.7 {10^3/mcL} [facility].; [facility], [employer]. Work Phone: Laboratory - Chemistry and C hemistry - challengeon 04-14-2022 Bilirubin Ql (U) Negative Normal [facility] HospitalReal[facility].; [facility], [place]. Ketones Ql (U) Negative Normal [facility].; [facility] [employer] [facility], [employer]. pH (U) 6.0 [pH] [facility].; [facility], Inc. Specific gravity (U) [Rel density] 1.025 Normal [facility].; [facility] [employer] [facility], [place]. Laboratory - Hematology and Cell countson 04-14-2022 Hemoglobin Ql (U) Negative Normal [facility]icsOpen Learning.; [facility], [place]. Laboratory - Specimen inform ationon 04-14-2022 Appearance (U) cLEAR Normal [facility] CenterOpen [facility].; [facility] [employer] [facility], Inc. Color (U) yELLOW [facility] [employer] [facility]Open Learning.; [facility], [facility]. Laboratory - Urinalysison Glucose Test strip (U) [Mass/Vol] Negative Normal [facility].; [facility], [facility]. Leukocyte esterase Test strip Ql (U) Negative Normal [facility].; [facility], [facility]. Nitrite Ql (U) Negative Normal [facility].; [facility], [facility]. Protein Ql (U) Negative Normal [facility].; [facility], [facility]. No Panel Informationon 04-14 Culture Urine See Note Normal [facility].; [facility], [facility]. UA - ODOR Negative Normal [facility].; [facility], [facility]. UA - UROBILIGEN 0.2 Normal [facility].; [facility]. No Panel Informationon 09-01 Culture Wound Aerobe Normal Vaginal Maritza a: Present Neisseria gonorrhoeae: Negative [facility] GS 1+ Epithelial cells 2+ Gram Positive Cocci 1+ Gram Positive Rods [facility] Laboratory - Microbiology an d Antimicrobial susceptibilityon 07-23-2021 S. pneumoniae Ag LA Ql (Unsp spec) Positive [facility].; [facility], [facility]. Laboratory - Chemistry and C hemistry - challengeon 06-22-2021 Calcium [Mass/Vol] 9.7 mg/dL Normal 8.7 - 10. 4 mg/dL [facility].; [facility], [facility]. Chloride [Moles/Vol] 107 mmol/L Normal 98 - 11 0 meq/L [facility].; [facility], [facility] CO2 [Moles/Vol] 25 mmol/L Normal 22 - 32 meq/L [facility].; [facility]. Creatinine [Mass/Vol] 0.94 mg/dL Normal 0.50 - 1.20 mg/dL [facility].; [facility]Real[facility]. GFR/1.73 sq M.predicted among blacks MDRD (S/P/Bld) [Vol rate/Area] mL/min/{1.73_m2} Normal [facility].; [facility] Work Phone: GFR/1.73 sq M.predicted among non-blacks MDRD (S/P/Bld) [Vol rate/Area] mL/min/{1.73_m2} Normal [facility].; [facility] Work Phone: Glucose [Mass/Vol] 91 mg/dL Normal 70 - 110 mg/dL [facility].; [facility]. Potassium [Moles/Vol] 4.1 mmol/L Normal 3.5 - 5.0 meq/L [facility].; [facility]. Sodium [Moles/Vol] 141 mmol/L Normal 136 - 145 meq/L [facility].; [facility]. TSH Qn 1.771 m[IU]/L Normal 0.550 - 4.780 m[iU]/mL [facility].; [facility] Urea nitrogen [Mass/Vol] 13.0 mg/dL Normal 8.0 - 22.0 mg/dL [facility].; [facility] Urea nitrogen/Creatinine [Mass ratio] 13.8 {ratio} Normal 10.0 - 22.0 {ratio} [facility].; [facility]. Laboratory - Hematology and Cell countson 06-22-2021 Basophils (Bld) [#/Vol] 0.00 {10^3/mcL} Normal 0.00 - 0.27 {10^3/mcL} [facility]; [facility] Work Phone: Basophils/100 WBC (Bld) 0.3 % Normal 0.0 - 2.5 % [facility]; [facility] Work Phone: Eosinophils (Bld) [#/Vol] 0.00 {10^3/mcL} Normal 0.00 - 0.65 {10^3/mcL} [facility]; [facility] Work Phone: Eosinophils/100 WBC (Bld) 0.4 % Normal 0.0 - 6.0 % [facility]; [facility] Work Phone: Erythrocyte distribution width (RBC) [Ratio] 13.1 % Normal 11.5 - 15.5 % [facility]; [facility] Hematocrit (Bld) [Volume fraction] 42.9 % Normal 34.0 - 46.0 % [facility]; [facility] Hemoglobin (Bld) [Mass/Vol] 14.7 g/dL Normal 12.0 - 16.0 g/dL [facility]; [facility] Lymphocytes (Bld) [#/Vol] 1.40 {10^3/mcL} Normal 0.90 - 4.32 {10^3/mcL} [facility]; [facility] Work Phone: Lymphocytes/100 WBC (Bld) 27.8 % Normal 20.0 - 40.0 % [facility]; [facility] Work Phone: MCH (RBC) [Entitic mass] 31.3 pg Normal 27.0 - 33.0 pg [facility].; [facility], [facility]. MCHC (RBC) [Mass/Vol] 34.2 g/dL Normal 32.0 - 36.0 g/dL [facility].; [facility], [facility] MCV (RBC) [Entitic vol] 91.5 fL Normal 80.0 - 99.0 fL [facility].; [facility], [facility] Monocytes (Bld) [#/Vol] 0.50 {10^3/mcL} Normal 0.09 - 1.40 {10^3/mcL} [facility].; [facility], [facility]. Work Phone: Monocytes/100 WBC (Bld) 9.7 % Normal 2.0 - 13.0 % [facility].; [facility], [facility]. Work Phone: Neutrophils (Bld) [#/Vol] 3.20 {10^3/mcL} Normal 2.25 - 8.10 {10^3/mcL} [facility].; [facility], [facility]. Work Phone: Neutrophils/100 WBC (Bld) 61.8 % Normal 50.0 - 75.0 % [facility].; [facility], [facility]. Work Phone: Platelet mean volume (Bld) [Entitic vol] 8.5 fL Normal 6.6 - 10.5 fL [facility].; [facility], [facility]. Platelets (Bld) [#/Vol] 257 {10^3/mcL} Normal 150 - 450 {10^3/mcL} [facility].; [facility], [facility]. RBC (Bld) [#/Vol] 4.68 {10^6/mcL} Normal 4.10 - 5.30 {10^6/mcL} [employer].; [facility] [employer] [facility] [employer]. WBC (Bld) [#/Vol] 5.20 {10^3/mcL} Normal 4.50 - 10.80 {10^3/mcL} [employer].; [employer]. No Panel Informationon 06-22 Electrolyte Balance 9.0 meq/L Normal 4.0 - 15 .0 meq/L [employer].; [employer]. Eosinophil, Absolute 0.00 {10^3/mcL} Normal 0.00 - 0.65 {10^3/mcL} [employer].; [facility] Cressey[employer]K [email or web address]. Work Phone: [id number] 04-21-2020 COVID19 SEE SEPARATE REPORT [facility] Comment on above: Result Comment: SPEC IMEN SENT TO A MISCELLANEOUS LAB SEE SCANNED RESULTS FOR TESTING FACILITY INFORMATION Laboratory - Microbiology an d Antimicrobial susceptibilityon 07-08-2019 FLUAV Ag IA Ql (Throat) Negative Normal [employer]; [employer]. B-HCG (QUANT)on 01-10-2019 B-HCG (QUANT) 1.10 mIU/mL Normal [facility] Comment on above: Result Comment: Appr ox. Gestional Age Approx. hCG Range (weeks) (mlU/mL) 3 5.8 - 71.2 4 9.5 - 750 5 217 - 7,138 6 158 - 31,795 7 3,697 - 163,563 8 32,065 - 149,571 9 63,803 - 151,140 10 46,509 - 186,977 12 27,832 - 210,612 14 13,950 - 62,530 15 12,039 - 70,971 16 9,040 - 56,451 17 8,175 - 55,868 18 8,099 - 58,176 Performed By: #### L 304.0222 #### ML - LABORATORY [address] [place] [address] B-HCG (QUANT)on 12-12-2018 B-HCG (QUANT) 950.40 mIU/mL [facility] Comment on above: Result Comment: Appr ox. Gestional Age Approx. hCG Range (weeks) (mlU/mL) 3 5.8 - 71.2 4 9.5 - 750 5 217 - 7,138 6 158 - 31,795 7 3,697 - 163,563 8 32,065 - 149,571 9 63,803 - 151,140 10 46,509 - 186,977 12 27,832 - 210,612 14 13,950 - 62,530 15 12,039 - 70,971 16 9,040 - 56,451 17 8,175 - 55,868 18 8,099 - 58,176 Performed By: #### L [id number] #### ML - LABORATORY [address] [place] [id number] B-HCG (QUANT)on 12-10-2018 B-HCG (QUANT) 2715.00 mIU/mL [facility] Comment on above: Result Comment: Appr ox. Gestional Age Approx. hCG Range (weeks) (mlU/mL) 3 5.8 - 71.2 4 9.5 - 750 5 217 - 7,138 6 158 - 31,795 7 3,697 - 163,563 8 32,065 - 149,571 9 63,803 - 151,140 10 46,509 - 186,977 12 27,832 - 210,612 14 13,950 - 62,530 15 12,039 - 70,971 16 9,040 - 56,451 17 8,175 - 55,868 18 8,099 - 58,176 Performed By: #### L [id number] #### [facility] - [facility] [address] [place] [address] Laboratory - Microbiology an d Antimicrobial susceptibilityon 07-17-2018 FLUAV Ag IA Ql (Throat) Negative Normal [facility].; [facility], [facility] FLUAV Ag IA Ql (Throat) Positive Abnormal [facility].; [facility], [facility]. Laboratory - Chemistry and C hemistry - challengeon 07-13-2018 Albumin BCP dye [Mass/Vol] 4.4 g/dL Normal 3.2 - 4.8 g/dL [facility].; [facility], [facility]. Albumin/Globulin [Mass ratio] 1.4 {ratio} Normal 0.9 - 1.6 {ratio} [facility].; [facility], [facility]. ALP [Catalytic activity/Vol] 68 U/L Normal 38 - 126 U/L [facility].; [facility], [facility]. ALT No additional P-5'-P [Catalytic activity/Vol] 19 U/L Normal 10 - 49 U/L [facility].; [facility], [facility]. ALT With P-5'-P [Catalytic activity/Vol] 19 U/L Normal 10 - 49 U/L [facility].; [facility], [facility]. AST [Catalytic activity/Vol] 18 U/L Normal 8 - 34 U/L [facility].; [facility], [facility]. AST With P-5'-P [Catalytic activity/Vol] 18 U/L Normal 8 - 34 U/L [facility], [facility].; [facility], Inc. Bilirubin [Mass/Vol] 0.5 mg/dL Normal 0.2 - 1 .2 mg/dL [facility].; [facility], [facility] Bilirubin Ql (U) Negative Normal [facility].; [facility], [facility] Calcium [Mass/Vol] 9.1 mg/dL Normal 8.4 - 10. 1 mg/dL [facility].; [facility]. Chloride [Moles/Vol] 105 mmol/L Normal 98 - 11 0 meq/L [facility].; [facility] CO2 [Moles/Vol] 25 mmol/L Normal 22 - 32 meq/L [facility].; [facility]. Creatinine [Mass/Vol] 0.88 mg/dL Normal 0.50 - 1.20 mg/dL [facility].; [facility]. GFR/1.73 sq M.predicted among blacks MDRD (S/P/Bld) [Vol rate/Area] mL/min/{1.73_m2} Normal [facility].; [facility]. Work Phone: GFR/1.73 sq M.predicted among non-blacks MDRD (S/P/Bld) [Vol rate/Area] mL/min/{1.73_m2} Normal [facility].; [facility]. Work Phone: Globulin (S) [Mass/Vol] 3.2 g/dL Normal 1.5 - 3.8 g/dL [facility].; [facility], [facility]. Glucose [Mass/Vol] 82 mg/dL Normal 70 - 110 mg/dL [facility].; [facility], [facility]. Ketones Ql (U) Negative Normal [facility]; [facility], [facility]. pH (U) 6.0 [pH] Normal [facility].; [facility], [facility]. Potassium [Moles/Vol] 4.3 mmol/L Normal 3.5 - 5.0 meq/L [facility].; [facility], [facility] Protein [Mass/Vol] 7.6 g/dL Normal 6.0 - 8.5 g/dL [facility]; [facility] Sodium [Moles/Vol] 140 mmol/L Normal 136 - 145 meq/L [facility]; [facility] Specific gravity (U) [Rel density] 1.010 Normal [facility]; [facility] TSH Qn 2.300 m[IU]/L Normal 0.360 - 3.740 {mcIU/mL} [facility]; [facility] Urea nitrogen [Mass/Vol] 17.0 mg/dL Normal 8.0 - 22.0 mg/dL [facility]; [facility] Urea nitrogen/Creatinine [Mass ratio] 19.3 {ratio} Normal 10.0 - 22.0 {ratio} [facility]; [facility] Laboratory - Hematology and Cell countson 07-13-2018 Basophils (Bld) [#/Vol] 0.00 {10^3/mcL} Normal 0.00 - 0.27 {10^3/mcL} [facility]; [facility] Work Phone: Basophils/100 WBC (Bld) 0.4 % Normal 0.0 - 2.5 % [facility]; [facility] Work Phone: Eosinophils (Bld) [#/Vol] 0.00 {10^3/mcL} Normal 0.00 - 0.65 {10^3/mcL} [facility].; [facility] Work Phone: Eosinophils/100 WBC (Bld) 0.4 % Normal 0.0 - 6.0 % [facility]; [facility] Work Phone: Erythrocyte distribution width (RBC) [Ratio] 12.8 % Normal 11.5 - 15.5 % [facility]; [facility] ESR Photometric method (Bld) [Velocity] 2 mm/h Normal 0 - 20 mm/h [facility]; [facility] Hematocrit (Bld) [Volume fraction] 42.8 % Normal 34.0 - 46.0 % [facility]; [facility] Hemoglobin (Bld) [Mass/Vol] 14.4 g/dL Normal 12.0 - 16.0 g/dL [facility]; [facility], [facility] Hemoglobin Ql (U) Negative Normal [facility]; [facility] Lymphocytes (Bld) [#/Vol] 2.10 {10^3/mcL} Normal 0.90 - 4.32 {10^3/mcL} [facility]; [facility] Work Phone: Lymphocytes/100 WBC (Bld) 30.9 % Normal 20.0 - 40.0 % [facility]; [facility] Work Phone: MCH (RBC) [Entitic mass] 30.8 pg Normal 27.0 - 33.0 pg [facility]; [facility], [facility] MCHC (RBC) [Mass/Vol] 33.7 g/dL Normal 32.0 - 36.0 g/dL [facility]; [facility], [facility]. MCV (RBC) [Entitic vol] 91.2 fL Normal 80.0 - 99.0 fL [facility]; [facility] Monocytes (Bld) [#/Vol] 0.60 {10^3/mcL} Normal 0.09 - 1.40 {10^3/mcL} [facility]; [facility], [facility] Work Phone: Monocytes/100 WBC (Bld) 9.1 % Normal 2.0 - 13.0 % [facility] [employer].; [facility]ITAL[facility] [employer] [facility], Inc[facility] Work Phone: Neutrophils (Bld) [#/Vol] 4.00 {10^3/mcL} Normal 2.25 - 8.10 {10^3/mcL} [facility] [employer] [facility], Inc.; [employer] [facility] [employer] [facility] Inc[employer] Work Phone: Neutrophils/100 WBC (Bld) 59.2 % Normal 50.0 - 75.0 % [facility] [employer].; [employer] [facility] [employer] Work Phone: Platelet mean volume (Bld) [Entitic vol] 9.0 fL Normal 6.6 - 10.5 fL [facility].; [facility] [employer] [facility], Inc. Platelets (Bld) [#/Vol] 267 {10^3/mcL} Normal 150 - 450 {10^3/mcL} [facility] [employer].; [facility] [employer] [facility], Inc. RBC (Bld) [#/Vol] 4.70 {10^6/mcL} Normal 4.10 - 5.30 {10^6/mcL} [facility] [employer].; [facility] [employer] [facility], Inc[employer] WBC (Bld) [#/Vol] 6.80 {10^3/mcL} Normal 4.50 - 10.80 {10^3/mcL} [facility] [employer] [employer] [place] [employer] [facility] [employer] [facility], [facility] Laboratory - Specimen inform ationon 07-13-2018 Appearance (U) CLEAR Normal [employer] [place] [facility] [employer] Color (U) YELLOW Normal [employer].; [facility] [employer] Laboratory - Urinalysison Glucose Test strip (U) [Mass/Vol] Negative Normal [facility] [employer] [place] [facility] [employer] Leukocyte esterase Test strip Ql (U) Negative Normal [facility] [employer].; [facility], [place]. Nitrite Ql (U) Negative Normal [facility], [place]. Protein Ql (U) Negative Normal [facility].; [facility], [place]. No Panel Informationon 07-13 Electrolyte Balance 10.0 meq/L Normal 4.0 - 15 .0 meq/L [facility].; [facility], [place]. Eosinophil, Absolute 0.00 {10^3/mcL} Normal 0.00 - 0.65 {10^3/mcL} [facility].; [place] [facility], [place]. Work Phone: UA - ODOR Negative [facility].; [facility], [place]. UA - UROBILIGEN 0.2 Normal [facility].; [facility], [place]. Laboratory - Microbiology an d Antimicrobial susceptibilityon 09-19-2016 S. pneumoniae Ag LA Ql (Unsp spec) Negative [facility].; [facility] [employer] [facility], [place]. Vital Signs Date Time Vital Sign Value Performing Clinician Facility 10-17-2024 12:29-0400 Body temperature 98 [degF] Dr. Jaskaran Llanes MD Work Phone: [facility] 10-17-2024 12:29-0400 Diastolic blood pressure 70 mm[Hg] Dr. Jaskaran Llanes MD Work Phone: [facility] 10-17-2024 12:29-0400 Heart rate 75 /min Dr. Jaskaran Llanes MD Work Phone: [facility] 10-17-2024 12:29-0400 Respiratory rate 14 /min Dr. Jaskaran Llanes MD Work Phone: [facility] 10-17-2024 12:29-0400 SaO2% (BldA) [Mass fraction] 100 % Dr. Jaskaran Llanes MD Work Phone: [facility] 10-17-2024 12:29-0400 Systolic blood pressure 112 mm[Hg] Dr. Jaskaran Llanes MD Work Phone: [facility] 10-17-2024 11:19-0400 Body height 160.[address] Jaskaran Llanes MD Work Phone: [facility] 10-17-2024 11:19-0400 Body mass index (BMI) [Ratio] 24.3 kg/m2 Dr. Jaskaran Llanes MD Work Phone: [facility] 10-17-2024 11:19-0400 Body weight 62.[address] Jaskaran Llanes MD Work Phone: [phone])[phone] [place] [address] 09-03-2024 10:07-0400 Body mass index (BMI) [Ratio] 24.5 kg/m2 Dr. Jaskaran Llanes MD Work Phone: [phone])[phone] [place] [address] 09-03-2024 10:07-0400 Body weight 62.[address] Jaskaran Llanes MD Work Phone: [facility] 09-03-2024 10:07-0400 Diastolic blood pressure 74 mm[Hg] Dr. Jaskaran Llanes MD Work Phone: [facility] 09-03-2024 10:07-0400 Heart rate 77 /min Dr. Jaskaran Llanes MD Work Phone: [facility] 09-03-2024 10:07-0400 Respiratory rate 16 /min Dr. Jaskaran Llanes MD Work Phone: [facility] 09-03-2024 10:07-0400 SaO2% (BldA) [Mass fraction] 100 % Dr. Jaskaran Llanes MD Work Phone: [facility] 09-03-2024 10:07-0400 Systolic blood pressure 117 mm[Hg] Dr. Jaskaran Llanes MD Work Phone: [facility] 08-06-2024 13:54-0400 Body height 161.93 cm BRANDON FRANCIS RN [facility] [employer] [facility], [place].; [facility], Inc[facility] 08-06-2024 13:54-0400 Body mass index (BMI) [Ratio] 23.87 kg/m2 BRANDON FRANCIS RN [facility], [place].; [facility], Inc. 08-06-2024 13:54-0400 Body surface area Derived from formula 1.67 m2 BRANDON FRANCIS RN [facility] [employer] [facility], [place].; [facility], Inc. 08-06-2024 13:54-0400 Body weight 62.6 kg BRANDON FRANCIS RN [facility].; [facility], [facility]. 08-06-2024 13:54-0400 Diastolic blood pressure 70 mm[Hg] BRANDON FRANCIS RN [facility] [employer] [facility].; [facility]. Comment on above: Patient Position: Sitting; Cuff Location : Left Arm; Cuff Size: Standard 08-06-2024 13:54-0400 Heart rate 76 /min BRANDON FRANCIS RN [facility] [employer] [facility].; [facility], [place]. Comment on above: Pattern: Regular 08-06-2024 13:54-0400 Systolic blood pressure 111 mm[Hg] BRANDON FRANCIS RN [facility] [employer] [facility].; [facility]. Comment on above: Patient Position: Sitting; Cuff Location : Left Arm; Cuff Size: Standard 06-25-2024 15:07-0500 Body mass index (BMI) [Ratio] 25 kg/m2 Dr. Jaskaran Llanes MD Work Phone: [facility] 06-25-2024 15:07-0500 Body weight 63.[address] Jaskaran Llanes MD Work Phone: [facility] 06-25-2024 15:07-0500 Diastolic blood pressure 88 mm[Hg] Dr. Jaskaran Llanes MD Work Phone: [facility] 06-25-2024 15:07-0500 Heart rate 84 /min Dr. Jaskaran Llanes MD Work Phone: [facility] 06-25-2024 15:07-0500 SaO2% (BldA) [Mass fraction] 99 % Dr. Jaskaran Llanes MD Work Phone: [facility] 06-25-2024 15:07-0500 Systolic blood pressure 142 mm[Hg] Dr. Jaskaran Llanes MD Work Phone: [facility] 01-26-2024 09:34-0400 Body height 161.93 cm Diana Morris RN [facility], [facility].; [facility] [employer] [facility]. 01-26-2024 09:34-0400 Body mass index (BMI) [Ratio] 24.05 kg/m2 Diana Morris RN [facility], Inc.; [facility] [employer] [facility]. 01-26-2024 09:34-0400 Body surface area Derived from formula 1.67 m2 Diana Morris RN [facility] [employer] [facility], [facility].; [facility] [employer] [facility]. 01-26-2024 09:34-0400 Body weight 63.05 kg Diana Morris RN [facility], [facility].; [facility] [employer] [facility]. 01-26-2024 09:34-0400 Diastolic blood pressure 76 mm[Hg] Diana Morris RN [facility] [employer] [facility], Inc.; [facility]ITAL[facility] Nino [employer] [facility]. Comment on above: Patient Position: Sitting; Cuff Location : Left Arm; Cuff Size: Large 01-26-2024 09:34-0400 Heart rate 73 /min Diana Morris RN [facility] [employer] [facility], [facility].; [facility] [employer] [facility]. Comment on above: Pattern: Regular 01-26-2024 09:34-0400 Systolic blood pressure 108 mm[Hg] Diana Morris RN [facility] [employer] [facility], Inc.; [facility] [employer] [facility]. Comment on above: Patient Position: Sitting; Cuff Location : Left Arm; Cuff Size: Large 05-29-2023 09:50-0500 Body height 162.56 cm BRANDON FRANCIS RN [facility].; [facility] [employer] [facility] [employer] [facility]. 05-29-2023 09:50-0500 Body mass index (BMI) [Ratio] 23.73 kg/m2 BRANDON FRANCIS RN [facility] [employer] [facility].; [facility], Inc[employer] 05-29-2023 09:50-0500 Body surface area Derived from formula 1.67 m2 BRANDON FRANCIS RN [facility].; [employer] [facility] [employer] [facility]. 05-29-2023 09:50-0500 Body temperature 97.7 [degF] BRANDON FRANCIS RN [facility] [employer] [facility].; [facility] [employer] [facility] N[place] [employer] [facility]. Comment on above: Method: Oral 05-29-2023 09:50-0500 Body weight 62.71 kg BRANDON FRANCIS RN [facility] [employer] [facility].; [facility] [employer] [facility]. 05-29-2023 09:50-0500 Diastolic blood pressure 66 mm[Hg] BRANDON FRANCIS RN [facility] [employer] [facility].; [facility] [employer] [facility]. Comment on above: Patient Position: Sitting; Cuff Location : Left Arm; Cuff Size: Standard 05-29-2023 09:50-0500 Heart rate 76 /min BRANDON FRANCIS RN [facility].; [facility] [employer] [facility]. Comment on above: Pattern: Regular 05-29-2023 09:50-0500 Inhaled oxygen concentration 21 % BRANDON FRANCIS RN [facility] [employer] [facility].; [facility] [employer] [facility]. Comment on above: Room air 05-29-2023 09:50-0500 SaO2% (BldA) [Mass fraction] 99 % BRANDON FRANCIS RN [facility] [employer] [facility]Open [facility].; [facility]. 05-29-2023 09:50-0500 Systolic blood pressure 102 mm[Hg] BRANDON FRANCIS RN [facility].; [facility]. Comment on above: Patient Position: Sitting; Cuff Location : Left Arm; Cuff Size: Standard 11-26-2022 09:38-0400 Body height 162.56 cm Sagrario Santana [facility].; [facility], Inc. 11-26-2022 09:38-0400 Body mass index (BMI) [Ratio] 25.58 kg/m2 Sagrario Rodriguez [facility].; [facility], [facility]. 11-26-2022 09:38-0400 Body surface area Derived from formula 1.73 m2 Asgrariovalerie [facility]Cal[facility] [employer] [facility]Open [facility].; [facility] CenterReal[facility]. 11-26-2022 09:38-0400 Body temperature 98.2 [degF] Sagrario Rodriguez [facility] [employer] [facility].; [place] [facility] [employer] [facility], [place]. Comment on above: Method: Oral 11-26-2022 09:38-0400 Body weight 67.59 kg Sagrario Santana [facility] [employer] [facility]Open [facility].; [employer] [facility] Nino [employer] [facility], Inc. 11-26-2022 09:38-0400 Diastolic blood pressure 79 mm[Hg] Sagrario Santana [facility] [employer] [facility]Open [facility].; [facility] [employer] [facility]. Comment on above: Patient Position: Sitting; Cuff Location : Left Arm; Cuff Size: Standard 11-26-2022 09:38-0400 Heart rate 79 /min Sagrario Santana [facility] [employer] [facility].; [place] [facility] [employer] [facility], [place]. Comment on above: Pattern: Regular 11-26-2022 09:38-0400 Systolic blood pressure 151 mm[Hg] Sagrario Santana [facility] [employer] [facility]Open [facility].; [place] [facility] [employer] [facility], [place]. Comment on above: Patient Position: Sitting; Cuff Location : Left Arm; Cuff Size: Standard 10-30-2022 08:23-0400 Body temperature 98.24 [degF] SAJI YOUSSEF PACKAGE LINE RELIEF OPERATOR-CNM [facility] 10-30-2022 08:23-0400 Diastolic Blood Pressure Non-Invasive 60 1 SAJI YOUSSEF [employer] RELIEF OPERATOR-CNM [facility] 10-30-2022 08:23-0400 Heart rate 82 /min SAJI YOUSSEF PACKAGE LINE RELIEF OPERATOR-CNM [facility] 10-30-2022 08:23-0400 Reason For Taking VItal Signs SAJI YOUSSEF [employer] LINE RELIEF OPERATOR-CNM [facility] 10-30-2022 08:23-0400 Respiratory rate 16 /min SAJI YOUSSEF PACKAGE LINE RELIEF OPERATOR-CNM [facility] 10-30-2022 08:23-0400 Systolic Blood Pressure Non-Invasive 106 1 SAJI YOUSSEF PACKAGE LINE RELIEF OPERATOR-CNM [facility] 10-30-2022 03:50-0400 Body temperature 98.06 [degF] SAJI YOUSSEF PACKAGE LINE RELIEF OPERATOR-CNM [facility] 10-30-2022 03:50-0400 Diastolic Blood Pressure Non-Invasive 58 1 SAJI YOUSSEF PACKAGE LINE RELIEF OPERATOR-CNM [facility] 10-30-2022 03:50-0400 Heart rate 76 /min SAJI YOUSSEF PACKAGE LINE RELIEF OPERATOR-CNM [facility] 10-30-2022 03:50-0400 Reason For Taking VItal Signs SAJI YOUSSEF PACKAGE LINE RELIEF OPERATOR-CNM [facility] 10-30-2022 03:50-0400 Respiratory rate 18 /min SAJI YOUSSEF PACKAGE LINE RELIEF OPERATOR-CNM [facility] 10-30-2022 03:50-0400 Systolic Blood Pressure Non-Invasive 99 1 SAJI YOUSSEF PACK[employer] LINE RELIEF OPERATOR-CNM [facility] 10-29-2022 16:32-0400 Body temperature 98.06 [degF] SAJI YOUSSEF PACKAGE LINE RELIEF OPERATOR-CNM [facility] 10-29-2022 16:32-0400 Diastolic Blood Pressure Non-Invasive 59 1 SAJI YOUSSEF PACKAGE LINE RELIEF OPERATOR-CNM [facility] 10-29-2022 16:32-0400 Heart rate 73 /min SAJI YOUSSEF PACKAGE LINE RELIEF OPERATOR-CNM [facility] 10-29-2022 16:32-0400 Respiratory rate 16 /min SAJI YOUSSEF PACKAGE LINE RELIEF OPERATOR-CNM [facility] 10-29-2022 16:32-0400 Systolic Blood Pressure Non-Invasive 114 1 SAJI YOUSSEF PACKAGE LINE RELIEF OPERATOR-CNM [facility] 10-28-2022 21:28-0400 Body height 160 cm SAJI YOUSSEF PACKAGE LINE RELIEF OPERATOR-CNM [facility] 10-28-2022 21:28-0400 Body weight 77 kg SAJI YOUSSEF P[employer] LINE RELIEF OPERATOR-CNM [facility] 10-28-2022 21:28-0400 Body weight 30.08 kg/m2 SAJI YOUSSEF P[employer] LINE RELIEF OPERATOR-CNM [facility] 10-19-2022 06:35-0400 Diastolic Blood Pressure Non-Invasive 67 1 ARIAN LATA PACKAGE LINE RELIEF OPERATOR-CNM [facility] 10-19-2022 06:35-0400 Heart rate 87 /min ARIAN BENTON PACKAGE LINE RELIEF OPERATOR-CNM [facility] 10-19-2022 06:35-0400 Systolic Blood Pressure Non-Invasive 114 1 ARIAN BENTON PACKAGE LINE RELIEF OPERATOR-CNM [facility] 10-19-2022 05:52-0400 Body temperature 97.88 [degF] ARIAN BENTON PACKAGE LINE RELIEF OPERATOR-CNM [facility] 10-19-2022 05:52-0400 Diastolic Blood Pressure Non-Invasive 64 1 ARIAN BENTON PACKAGE LINE RELIEF OPERATOR-CNM [facility] 10-19-2022 05:52-0400 Heart rate 72 /min ARIAN BENTON PACKAGE LINE RELIEF OPERATOR-CNM [facility] 10-19-2022 05:52-0400 Respiratory rate 18 /min ARIAN BENTON PACKAGE LINE RELIEF OPERATOR-CNM [facility] 10-19-2022 05:52-0400 Systolic Blood Pressure Non-Invasive 106 1 ARIAN BENTON PACKAGE LINE RELIEF OPERATOR-CNM [facility] 10-19-2022 03:28-0400 Body height 160 cm ARIAN BENTON PACKAGE LINE RELIEF OPERATOR-CNM [facility] 10-19-2022 03:28-0400 Body temperature 97.88 [degF] ARIAN BENTON PACKAGE LINE RELIEF OPERATOR-CNM [facility] 10-19-2022 03:28-0400 Body weight 73 kg ARIAN BENTON PACKAGE LINE RELIEF OPERATOR-CNM [facility] 10-19-2022 03:28-0400 Body weight 28.52 kg/m2 ARIAN BENTON PACKAGE LINE RELIEF OPERATOR-CNM [facility] 10-19-2022 03:28-0400 Diastolic Blood Pressure Non-Invasive 88 1 ARIAN BENTON PACKAGE LINE RELIEF OPERATOR-CNM [facility] 10-19-2022 03:28-0400 Heart rate 104 /min ARIAN BENTON PACKAGE LINE RELIEF OPERATOR-CNM [facility] 10-19-2022 03:28-0400 Heart rate 82 /min ARIAN BENTON PACKAGE LINE RELIEF OPERATOR-CNM [facility] 10-19-2022 03:28-0400 Reason For Taking VItal Signs ARIAN BENTON PACKAGE LINE RELIEF OPERATOR-CNM [facility] 10-19-2022 03:28-0400 Respiratory rate 18 /min ARIAN BENTON PACKAGE LINE RELIEF OPERATOR-CNM [facility] 10-19-2022 03:28-0400 Systolic Blood Pressure Non-Invasive 134 1 ARIAN BENTON PACKAGE LINE RELIEF OPERATOR-CNM [facility] 09-26-2022 16:03-0400 Body height 162.56 cm JACQUIE JOSHI RN [facility].; [facility]ITAL[facility] BaptistReal[facility]. 09-26-2022 16:03-0400 Body mass index (BMI) [Ratio] 27.46 kg/m2 JACQUIE JOSHI RN [facility].; [employer] [facility] [employer] [facility]. 09-26-2022 16:03-0400 Body surface area Derived from formula 1.78 m2 JACQUIE JOSHI RN [facility] [employer] [facility].; [facility] [employer] [facility]. 09-26-2022 16:03-0400 Body temperature 98 [degF] JACQUIE JOSHI RN [facility].; [facility] [employer] [facility]. Comment on above: Method: Oral 09-26-2022 16:03-0400 Body weight 72.58 kg JACQUIE JOSHI RN [facility].; [employer] [facility] Baptist[facility]. 09-26-2022 16:03-0400 Diastolic blood pressure 66 mm[Hg] JACQUIE JOSHI RN [facility].; [facility]. Comment on above: Patient Position: Sitting; Cuff Location : Left Arm; Cuff Size: Standard 09-26-2022 16:03-0400 Heart rate 86 /min JACQUIE JOSHI RN [facility], [facility].; [facility]. Comment on above: Pattern: Regular 09-26-2022 16:03-0400 Inhaled oxygen concentration 21 % JACQUIE JOSHI RN [facility], [facility].; [facility]. Comment on above: Room air 09-26-2022 16:03-0400 SaO2% (BldA) [Mass fraction] 100 % JACQUIE JOSHI RN [facility], [place].; [facility]. 09-26-2022 16:03-0400 Systolic blood pressure 105 mm[Hg] JACQUIE JOSHI RN [facility], [facility].; [facility]. Comment on above: Patient Position: Sitting; Cuff Location : Left Arm; Cuff Size: Standard 07-01-2022 14:54-0500 Body height 162.56 cm BRANDON FRANCIS RN [facility], [facility].; [facility]. 07-01-2022 14:54-0500 Body mass index (BMI) [Ratio] 25.4 kg/m2 BRANDON FRANCIS RN [facility], [facility].; [facility] [place]. 07-01-2022 14:54-0500 Body surface area Derived from formula 1.72 m2 BRANDON FRANCIS RN [facility], [facility].; [facility], [place]. 07-01-2022 14:54-0500 Body temperature 97.3 [degF] BRANDON FRANCIS RN [facility], [place].; [facility] [employer] [facility]. Comment on above: Method: Oral 07-01-2022 14:54-0500 Body weight 67.13 kg BRANDON FRANCIS RN [facility], [place].; [facility]. 07-01-2022 14:54-0500 Diastolic blood pressure 67 mm[Hg] BRANDON FRANCIS RN [facility], [place].; [facility]. Comment on above: Patient Position: Sitting; Cuff Location : Left Arm; Cuff Size: Standard 07-01-2022 14:54-0500 Heart rate 91 /min BRANDON FRANCIS RN [facility], [place].; [facility]. Comment on above: Pattern: Regular 07-01-2022 14:54-0500 Inhaled oxygen concentration 21 % BRANDON FRANCIS RN [facility], [facility].; [facility]. Comment on above: Room air 07-01-2022 14:54-0500 SaO2% (BldA) [Mass fraction] 100 % BRANDON FRANCIS RN [facility], [facility].; [facility]. 07-01-2022 14:54-0500 Systolic blood pressure 103 mm[Hg] BRANDON FRANCIS RN [facility], [facility].; [facility]. Comment on above: Patient Position: Sitting; Cuff Location : Left Arm; Cuff Size: Standard 04-14-2022 10:37-0500 Body height 162.56 cm JACQUIE JOSHI RN [facility], Inc.; [facility]. 04-14-2022 10:37-0500 Body mass index (BMI) [Ratio] 22.83 kg/m2 JACQUIE JOSHI RN [facility], Inc.; [facility], [facility]. 04-14-2022 10:37-0500 Body surface area Derived from formula 1.64 m2 JACQUIE JOSHI RN [facility], Inc.; [facility]. 04-14-2022 10:37-0500 Body temperature 97.9 [degF] JACQUIE JOSHI RN [facility], [facility].; [facility]. Comment on above: Method: Oral 04-14-2022 10:37-0500 Body weight 60.33 kg JACQUIE JOSHI RN [facility], [facility].; [facility], Inc. 04-14-2022 10:37-0500 Diastolic blood pressure 74 mm[Hg] JACQUIE GRATE STEVE [facility].; [facility], [facility]. Comment on above: Patient Position: Sitting; Cuff Location : Left Arm; Cuff Size: Standard 04-14-2022 10:37-0500 Heart rate 85 /min JACQUIE JOSHI RN [facility], [facility].; [facility]. Comment on above: Pattern: Regular 04-14-2022 10:37-0500 Systolic blood pressure 114 mm[Hg] JACQUIE JOSHI RN [facility], [facility].; [facility] HospitalReal[facility]. Comment on above: Patient Position: Sitting; Cuff Location : Left Arm; Cuff Size: Standard 04-07-2022 10:50-0500 Body height 162.56 cm JACQUIE JOSHI RN [facility], [facility].; [facility], [facility] [facility]. 04-07-2022 10:50-0500 Body mass index (BMI) [Ratio] 22.83 kg/m2 JACQUIE JOSHI RN [facility], [facility].; [facility], [facility]. 04-07-2022 10:50-0500 Body surface area Derived from formula 1.64 m2 JACQUIE JOSHI RN [facility], [facility].; [facility], [facility]. 04-07-2022 10:50-0500 Body temperature 98.3 [degF] JACQUIE JOSHI RN [facility], [facility].; [facility]. Comment on above: Method: Oral 04-07-2022 10:50-0500 Body weight 60.33 kg JACQUIE JOSHI [facility].; [facility]. 04-07-2022 10:50-0500 Diastolic blood pressure 81 mm[Hg] JACQUIE JOSHI RN [facility].; [facility]. Comment on above: Patient Position: Sitting; Cuff Location : Right Arm; Cuff Size: Standard 04-07-2022 10:50-0500 Heart rate 99 /min JACQUIE JOSHI RN [facility], [facility].; [facility]. Comment on above: Pattern: Regular 04-07-2022 10:50-0500 Inhaled oxygen concentration 21 % JACQUIE JOSHI [facility].; [facility]. Comment on above: Room air 04-07-2022 10:50-0500 SaO2% (BldA) [Mass fraction] 100 % JACQUIE JOSHI RN [facility].; [facility]. 04-07-2022 10:50-0500 Systolic blood pressure 128 mm[Hg] JACQUIE JOSHI RN [facility].; [facility]. Comment on above: Patient Position: Sitting; Cuff Location : Right Arm; Cuff Size: Standard 07-23-2021 16:05-0400 Body height 162.56 cm BRANDON FRANCIS RN [facility], [employer] [facility]. 07-23-2021 16:05-0400 Body mass index (BMI) [Ratio] 22.14 kg/m2 BRANDON FRANCIS RN [facility], [facility].; [facility], [facility]. 07-23-2021 16:05-0400 Body surface area Derived from formula 1.62 m2 BRANDON FRANCIS RN [facility], [employer].; [facility], [employer]. 07-23-2021 16:05-0400 Body temperature 98.9 [degF] BRANDON FRANCIS RN [facility], [employer].; [facility]. 07-23-2021 16:05-0400 Body weight 58.51 kg BRANDON FRANCIS RN [facility].; [facility]. 07-23-2021 16:05-0400 Diastolic blood pressure 79 mm[Hg] BRANDON FRANCIS RN [facility].; [facility]. Comment on above: Patient Position: Sitting; Cuff Location : Left Arm; Cuff Size: Standard 07-23-2021 16:05-0400 Heart rate 91 /min BRANDON FRANCIS RN [facility].; [facility]. Comment on above: Pattern: Regular 07-23-2021 16:05-0400 Respiratory rate 98 /min BRANDON FRANCIS RN [facility].; [facility]. Comment on above: Pattern: Unlabored 07-23-2021 16:05-0400 Systolic blood pressure 118 mm[Hg] BRANDON FRANCIS RN [facility].; [facility]. Comment on above: Patient Position: Sitting; Cuff Location : Left Arm; Cuff Size: Standard 06-22-2021 10:32-0500 Body height 162.56 cm JASKARAN LLANES MD Work Phone: [facility].; [facility]ITAL[facility]. 06-22-2021 10:32-0500 Body mass index (BMI) [Ratio] 21.99 kg/m2 JASKARAN LLANES MD Work Phone: [facility].; [facility]ITAL[facility]. 06-22-2021 10:32-0500 Body surface area Derived from formula 1.62 m2 JASKARAN LLANES MD Work Phone: [facility] [employer] [facility] HealthOpen Learning.; [employer] [facility]. 06-22-2021 10:32-0500 Body weight 58.12 kg JASKARAN LLANES MD Work Phone: [facility]; [facility] [employer] [facility] [employer] [facility]Open [facility]. 06-22-2021 10:32-0500 Diastolic blood pressure 79 mm[Hg] JASKARAN LLANES MD Work Phone: [facility].; [facility] [facility] [employer] [facility]Open [facility]. Comment on above: Patient Position: Sitting; Cuff Location : Left Arm; Cuff Size: Standard 06-22-2021 10:32-0500 Heart rate 73 /min JASKARAN LLANES MD Work Phone: [facility] [employer] [facility] HealthOpen [facility].; [facility] [employer] [facility] [place] [facility] HealthOpen [facility]. Comment on above: Pattern: Regular 06-22-2021 10:32-0500 Systolic blood pressure 112 mm[Hg] JASKARAN LLANES MD Work Phone: [facility] [employer] [facility] HealthOpen Learning.; [facility] [employer] [facility] [place] [facility]Open [facility]. Comment on above: Patient Position: Sitting; Cuff Location : Left Arm; Cuff Size: Standard 07-08-2019 16:24-0500 Body height 162.56 cm JASKARAN LLANES MD Work Phone: [facility]; [facility] [employer] [facility]Open [facility]. 07-08-2019 16:24-0500 Body mass index (BMI) [Ratio] 26.43 kg/m2 JASKARAN LLANES MD Work Phone: [facility] [employer] [facility] HealthOpen Learning.; [employer] [facility] [employer] [facility] HealthOpen [facility]. 07-08-2019 16:24-0500 Body surface area Derived from formula 1.75 m2 JASKARAN LLANES MD Work Phone: [facility] [employer] [facility] HealthOpen Learning.; [facility] [employer] [facility]Open [facility]. 07-08-2019 16:24-0500 Body temperature 98.1 [degF] JASKARAN LLANES MD Work Phone: [facility] CenterVertiFlex [facility] HealthOpen Learning.; [facility] [employer] [facility] [employer] [facility] HealthOpen [facility]. Comment on above: Method: Oral 07-08-2019 16:24-0500 Body weight 69.85 kg JASKARAN LLANES MD Work Phone: [email or web address]. 07-08-2019 16:24-0500 Diastolic blood pressure 81 mm[Hg] JASKARAN LLANES MD Work Phone: [email or web address]. Comment on above: Patient Position: Sitting; Cuff Location : Left Arm; Cuff Size: Large 07-08-2019 16:24-0500 Heart rate 89 /min JASKARAN LLANES MD Work Phone: [email or web address]. Comment on above: Pattern: Regular 07-08-2019 16:24-0500 Systolic blood pressure 135 mm[Hg] JASKARAN LLANES MD Work Phone: [email or web address]. Comment on above: Patient Position: Sitting; Cuff Location : Left Arm; Cuff Size: Large 10-31-2018 13:34-0400 Body height 162.56 cm JASKARAN LLANES MD Work Phone: [email or web address]. 10-31-2018 13:34-0400 Body mass index (BMI) [Ratio] 24.48 kg/m2 JASKARAN LLANES MD Work Phone: [email or web address]. 10-31-2018 13:34-0400 Body surface area Derived from formula 1.69 m2 JASKARAN LLANES MD Work Phone: [email or web address]. 10-31-2018 13:34-0400 Body weight 64.68 kg JASKARAN LLANES MD Work Phone: [email or web address] 10-31-2018 13:34-0400 Diastolic blood pressure 96 mm[Hg] JASKARAN LLANES MD Work Phone: [email or web address] [place] [employer] [facility] [employer]. Comment on above: Patient Position: Sitting; Cuff Location : Left Arm; Cuff Size: Standard 10-31-2018 13:34-0400 Heart rate 92 /min JASKARAN LLANES MD Work Phone: [email or web address] [facility] [employer]. Comment on above: Pattern: Regular 10-31-2018 13:34-0400 Systolic blood pressure 153 mm[Hg] JASKARAN LLANES MD Work Phone: [email or web address] [facility] [employer] [facility] [employer] Comment on above: Patient Position: Sitting; Cuff Location : Left Arm; Cuff Size: Standard 07-17-2018 10:30-0400 Body height 162.56 cm JASKARAN LLANES MD Work Phone: [facility] [employer].; [employer] [facility] [employer]. 07-17-2018 10:30-0400 Body mass index (BMI) [Ratio] 25.75 kg/m2 JASKARAN LLANES MD Work Phone: [facility] [employer].; [employer] [facility] [employer]. 07-17-2018 10:30-0400 Body surface area Derived from formula 1.73 m2 JASKARAN LLANES MD Work Phone: [email or web address] [facility] [employer]. 07-17-2018 10:30-0400 Body temperature 98.4 [degF] JASKARAN LLANES MD Work Phone: [email or web address] [facility] [employer]. Comment on above: Method: Oral 07-17-2018 10:30-0400 Body weight 68.04 kg JASKARAN LLANES MD Work Phone: [email or web address].; [email or web address]. 07-17-2018 10:30-0400 Diastolic blood pressure 83 mm[Hg] JASKARAN LLANES MD Work Phone: [email or web address] [facility] [employer]. Comment on above: Patient Position: Sitting; Cuff Location : Left Arm; Cuff Size: Standard 07-17-2018 10:30-0400 Heart rate 97 /min JASKARAN LLANES MD Work Phone: [email or web address] [facility] [employer]. Comment on above: Pattern: Regular 07-17-2018 10:30-0400 Systolic blood pressure 116 mm[Hg] JASKARAN LLANES MD Work Phone: [email or web address] [facility] [employer]. Comment on above: Patient Position: Sitting; Cuff Location : Left Arm; Cuff Size: Standard 07-13-2018 11:13-0500 Body height 160.02 cm JASKARAN LLANES MD Work Phone: [email or web address]. 07-13-2018 11:13-0500 Body mass index (BMI) [Ratio] 26.39 kg/m2 JASKARAN LLANES MD Work Phone: [email or web address]. 07-13-2018 11:13-0500 Body surface area Derived from formula 1.71 m2 JASKARAN LLANES MD Work Phone: [email or web address]. 07-13-2018 11:13-0500 Body temperature 98.2 [degF] JASKARAN LLANES MD Work Phone: [email or web address]. Comment on above: Method: Oral 07-13-2018 11:13-0500 Body weight 67.59 kg JASKARAN LLANES MD Work Phone: [employer].; [place] [facility] [employer]. 07-13-2018 11:13-0500 Diastolic blood pressure 91 mm[Hg] JASKARAN LLANES MD Work Phone: [facility].; [place] [facility] [employer]. Comment on above: Patient Position: Sitting; Cuff Location : Left Arm; Cuff Size: Large 07-13-2018 11:13-0500 Heart rate 96 /min JASKARAN LLANES MD Work Phone: [facility] [employer].; [place] [facility] [employer]. Comment on above: Pattern: Regular 07-13-2018 11:13-0500 Systolic blood pressure 145 mm[Hg] JASKARAN LLANES MD Work Phone: [facility].; [place] [facility] [employer]. Comment on above: Patient Position: Sitting; Cuff Location : Left Arm; Cuff Size: Large 02-07-2017 13:15-0400 Body height 160.02 cm [facility] [employer] [facility] HealthOpen Learning.; [facility] [employer] [facility]Open [facility]. 02-07-2017 13:15-0400 Body mass index (BMI) [Ratio] 24.09 kg/m2 [facility] [employer] [facility] HealthOpen [facility].; [facility] [employer] [facility]Open [facility]. 02-07-2017 13:15-0400 Body surface area Derived from formula 1.64 m2 [facility] [employer] [facility] HealthOpen Learning.; [facility] [employer]. 02-07-2017 13:15-0400 Body weight 61.69 kg [facility].; [facility] [employer]. 02-07-2017 13:15-0400 Diastolic blood pressure 69 mm[Hg] [facility].; [facility] [employer]. Comment on above: Patient Position: Sitting; Cuff Location : Left Arm; Cuff Size: Standard 02-07-2017 13:15-0400 Heart rate 74 /min [facility] [facility] HealthOpen Learning.; [facility]. Comment on above: Pattern: Regular 02-07-2017 13:15-0400 Systolic blood pressure 132 mm[Hg] SERG KERR [facility] [employer] [facility] HealthOpen Learning.; [facility]. Comment on above: Patient Position: Sitting; Cuff Location : Left Arm; Cuff Size: Standard 12-05-2016 15:23-0400 Body height 160.02 cm JASKARAN LLANES MD Work Phone: [facility] [employer] [facility] HealthOpen Learning.; [employer] [facility] [employer] [facility] HealthOpen Learning. 12-05-2016 15:23-0400 Body mass index (BMI) [Ratio] 23.38 kg/m2 JASKARAN LLANES MD Work Phone: [facility] CenterVertiFlex [facility] HealthOpen Learning.; [employer] [facility] [employer] [facility] HealthOpen Learning. 12-05-2016 15:23-0400 Body surface area Derived from formula 1.62 m2 JASKARAN LLANES MD Work Phone: [facility] [employer] [facility] HealthOpen Learning.; [facility] [employer] [facility] [employer] [facility] HealthOpen Learning. 12-05-2016 15:23-0400 Body temperature 98.1 [degF] JASKARAN LLANES MD Work Phone: [facility] [employer] [facility] HealthOpen Learning.; [employer] [facility] [employer] [facility] HealthOpen [facility]. Comment on above: Method: Oral 12-05-2016 15:23-0400 Body weight 59.88 kg JASKARAN LLANES MD Work Phone: [facility] CenterVertiFlex [facility] HealthOpen Learning.; [facility] [facility] [employer]. 12-05-2016 15:23-0400 Diastolic blood pressure 83 mm[Hg] JASKARAN LLANES MD Work Phone: [facility] CenterVertiFlex [facility]Open Learning.; [facility] [facility] [employer]. Comment on above: Patient Position: Sitting; Cuff Location : Left Arm; Cuff Size: Standard 12-05-2016 15:23-0400 Heart rate 85 /min JASKARAN LLANES MD Work Phone: [employer] [facility]Open Learning.; [facility] [employer] [facility] [employer] [facility] HealthOpen Learning. Comment on above: Pattern: Regular 12-05-2016 15:23-0400 Systolic blood pressure 129 mm[Hg] JASKARAN LLANES MD Work Phone: [facility] [employer] [facility] HealthOpen Learning.; [facility] [employer] [facility] [employer] [facility] HealthOpen [facility]. Comment on above: Patient Position: Sitting; Cuff Location : Left Arm; Cuff Size: Standard 09-17-2016 10:37-0400 Body temperature 98.4 [degF] Diana Morris RN [facility] [employer] [facility] HealthOpen Learning.; [place] [facility] [employer] [facility] HealthOpen Learning. Comment on above: Method: Oral 09-17-2016 10:37-0400 Diastolic blood pressure 93 mm[Hg] Diana Morris RN [facility] [employer] [facility] HealthOpen Learning.; [place] [facility] [place] [employer] [facility]Open [facility]. Comment on above: Patient Position: Sitting; Cuff Location : Left Arm; Cuff Size: Large 09-17-2016 10:37-0400 Heart rate 93 /min Diana Morris RN [facility] [employer] [facility]Open [facility].; [place] [facility] [place] [facility]. Comment on above: Pattern: Regular 09-17-2016 10:37-0400 Systolic blood pressure 146 mm[Hg] Diana Morris RN [facility] [employer] [facility] HealthOpen Learning.; [place] [facility] [employer] [facility]. Comment on above: Patient Position: Sitting; Cuff Location : Left Arm; Cuff Size: Large 02-04-2016 16:16-0400 Body height 160.66 cm JASKARAN LLANES MD Work Phone: [facility] [employer] [facility] HealthOpen Learning.; [facility] [employer] [facility] [employer]. 02-04-2016 16:16-0400 Body mass index (BMI) [Ratio] 24.78 kg/m2 JASKARAN LLANES MD Work Phone: [employer] [facility]Open [facility].; [facility] [employer] [facility] [employer]. 02-04-2016 16:16-0400 Body surface area Derived from formula 1.67 m2 JASKARAN LLANES MD Work Phone: [employer] [facility] HealthPush Health; [place] [facility] [employer] [facility] HealthPush Health 02-04-2016 16:16-0400 Body temperature 97.7 [degF] JASKARAN LLANES MD Work Phone: [employer] [facility] HealthPush Health; [place] [facility] [employer]. Comment on above: Method: Oral 02-04-2016 16:16-0400 Body weight 63.96 kg JASKARAN LLANES MD Work Phone: [employer] [facility] HealthOpen Learning.; [place] [facility] [employer]. 02-04-2016 16:16-0400 Diastolic blood pressure 91 mm[Hg] JASKARAN LLANES MD Work Phone: [employer] [facility] HealthPush Health; [place] [facility] [employer]. Comment on above: Patient Position: Sitting; Cuff Location : Left Arm; Cuff Size: Standard 02-04-2016 16:16-0400 Heart rate 86 /min JASKARAN LLANES MD Work Phone: [employer] [facility]Push Health; [facility] [employer] [facility] [employer]. Comment on above: Pattern: Regular 02-04-2016 16:16-0400 Systolic blood pressure 155 mm[Hg] JASKARAN LLANES MD Work Phone: [employer] [facility] HealthPush Health; [facility] [employer] [facility] [employer]. Comment on above: Patient Position: Sitting; Cuff Location : Left Arm; Cuff Size: Standard 07-30-2015 13:50-0400 Body height 160.66 cm JASKARAN LLANES MD Work Phone: [email or web address] [place] [facility]. 07-30-2015 13:50-0400 Body mass index (BMI) [Ratio] 23.9 kg/m2 JASKARAN LLANES MD Work Phone: [employer] [facility]Open [facility].; [place] [facility] [employer] [facility] HealthOpen Learning. 07-30-2015 13:50-0400 Body surface area Derived from formula 1.65 m2 JASKARAN LLANES MD Work Phone: [employer] [facility] HealthOpen Learning.; [place] [facility] [employer] [facility]Open [facility]. 07-30-2015 13:50-0400 Body temperature 98.2 [degF] JASKARAN LLANES MD Work Phone: [facility] [employer] [facility] HealthOpen Learning.; [place] [facility] [employer] [facility]Open Learning. Comment on above: Method: Oral 07-30-2015 13:50-0400 Body weight 61.69 kg JASKARAN LLANES MD Work Phone: [facility] [employer] [facility] HealthOpen Learning.; [place] [facility] [employer] [facility]Open [facility]. 07-30-2015 13:50-0400 Diastolic blood pressure 84 mm[Hg] JASKARAN LLANES MD Work Phone: [facility].; [place] [facility]East[facility]. Comment on above: Patient Position: Sitting; Cuff Location : Left Arm; Cuff Size: Standard 07-30-2015 13:50-0400 Heart rate 111 /min JASKARAN LLANES MD Work Phone: [facility] [employer] [facility] HealthOpen Learning.; [place] [facility] [employer]. Comment on above: Pattern: Regular 07-30-2015 13:50-0400 Systolic blood pressure 125 mm[Hg] JASKARAN LLANES MD Work Phone: [facility] [employer] [facility] HealthOpen Learning.; [place] [facility] [employer] [facility]Open [facility]. Comment on above: Patient Position: Sitting; Cuff Location : Left Arm; Cuff Size: Standard 01-14-2015 11:48-0400 Body height 160.66 cm [facility] [employer] [facility] HealthOpen Learning.; [employer] [facility] [employer] [facility], [employer] 01-14-2015 11:48-0400 Body mass index (BMI) [Ratio] 24.43 kg/m2 [facility] [employer] [facility] HealthOpen Learning.; [facility] [employer] [facility], [employer]. 01-14-2015 11:48-0400 Body surface area Derived from formula 1.66 m2 [facility] [employer] [facility], [employer].; [facility] [employer] [facility] [employer] 01-14-2015 11:48-0400 Body weight 63.05 kg SANGEETA FRANCIS [facility], Inc.; [facility], Inc[facility] 01-14-2015 11:48-0400 Diastolic blood pressure 84 mm[Hg] SANGEETA FRANCIS [facility], Inc.; [facility] [employer] [facility], [employer] Comment on above: Patient Position: Sitting; Cuff Location : Left Arm; Cuff Size: Standard 01-14-2015 11:48-0400 Heart rate 86 /min SANGEETA SANTIAGOPENNY [facility] [employer] [facility], Inc.; [facility] [employer] [facility], [employer] Comment on above: Pattern: Regular 01-14-2015 11:48-0400 Systolic blood pressure 133 mm[Hg] SANGEETA FRANCIS [facility] [employer] [facility], Inc.; [facility] [employer] [facility] [employer] Comment on above: Patient Position: Sitting; Cuff Location : Left Arm; Cuff Size: Standard 12-11-2014 13:02-0400 Body height 160.66 cm JASKARAN LLANES MD Work Phone: [facility] [employer] [facility] HealthOpen Learning.; [employer] [facility] [employer] [facility], [employer] 12-11-2014 13:02-0400 Body mass index (BMI) [Ratio] 25.13 kg/m2 JASKARAN LLANES MD Work Phone: [facility] [employer] [facility] HealthOpen Learning.; [employer] [facility] [employer] [facility], [employer] 12-11-2014 13:02-0400 Body surface area Derived from formula 1.68 m2 JASKARAN LLANES MD Work Phone: [facility] [employer] [facility] HealthOpen Learning.; [place] [facility] [employer] 12-11-2014 13:02-0400 Body temperature 98 [degF] JASKARAN LLANES MD Work Phone: [facility] [employer] [facility] HealthOpen Learning.; [place] [facility] [employer] [facility], [employer]. Comment on above: Method: Oral 12-11-2014 13:02-0400 Body weight 64.86 kg JASKARAN LLANES MD Work Phone: [email or web address]. 12-11-2014 13:02-0400 Diastolic blood pressure 84 mm[Hg] JASKARAN LLANES MD Work Phone: [email or web address]. Comment on above: Patient Position: Sitting; Cuff Location : Left Arm; Cuff Size: Large 12-11-2014 13:02-0400 Heart rate 97 /min JASKARAN LLANES MD Work Phone: [email or web address]. Comment on above: Pattern: Regular 12-11-2014 13:02-0400 Systolic blood pressure 141 mm[Hg] JASKARAN LLANES MD Work Phone: [email or web address]. Comment on above: Patient Position: Sitting; Cuff Location : Left Arm; Cuff Size: Large 10-20-2014 11:140400 Body height 162.56 cm [facility] [email or web address].; [employer], [employer]. 10-20-2014 11:14-0400 Body mass index (BMI) [Ratio] 24.37 kg/m2 [facility] [email or web address].; [employer], [employer]. 10-20-2014 11:14-0400 Body surface area Derived from formula 1.69 m2 [facility] [email or web address].; Its[employer]at[employer]. 10-20-2014 11:14-0400 Body temperature 98 [degF] [email or web address] [email or web address].; [employer]. Comment on above: Method: Oral 10-20-2014 11:140400 Body weight 64.41 kg BluepayYER [email or web address].; [employer] 10-20-2014 11:14-0400 Diastolic blood pressure 90 mm[Hg] SERG [facility] [employer].; [employer], [employer]. Comment on above: Patient Position: Sitting; Cuff Location : Left Arm; Cuff Size: Standard 10-20-2014 11:14-0400 Heart rate 96 /min [facility] [employer] [facility] HealthOpen Learning.; [facility] [employer] [facility] HealthOpen Learning. Comment on above: Pattern: Regular 10-20-2014 11:14-0400 Systolic blood pressure 141 mm[Hg] SERG KERR [facility] CenterVertiFlex Trinity HealthRealtime Games Inc.; [facility] [employer] [facility] HealthOpen Learning. Comment on above: Patient Position: Sitting; Cuff Location : Left Arm; Cuff Size: Standard 09-09-2014 14:46-0400 Body height 162.56 cm JASKARAN LLANES MD Work Phone: [facility] [employer] Trinity HealthPush Health; [address] [facility] [employer] Trinity HealthOpen Learning. 09-09-2014 14:46-0400 Body mass index (BMI) [Ratio] 24.37 kg/m2 JASKARAN LLANES MD Work Phone: [employer] NinoVertiFlex Trinity HealthOpen Learning.; [address] [facility] [employer] [facility] HealthOpen Learning. 09-09-2014 14:46-0400 Body surface area Derived from formula 1.69 m2 JASKARAN LLANES MD Work Phone: [employer] NinoVertiFlex [facility] HealthOpen Learning.; [facility] [employer] [facility] HealthOpen Learning. 09-09-2014 14:46-0400 Body temperature 98.3 [degF] JASKARAN LLANES MD Work Phone: [employer] NinoVertiFlex [facility] HealthOpen Learning.; [facility] [employer] [facility] HealthOpen Learning. Comment on above: Method: Oral 09-09-2014 14:46-0400 Body weight 64.41 kg JASKARAN LLANES MD Work Phone: [employer] [facility] HealthOpen Learning.; [facility] [employer] [facility] HealthOpen Learning. 09-09-2014 14:46-0400 Diastolic blood pressure 83 mm[Hg] JASKARAN LLANES MD Work Phone: [employer] NinoVertiFlex [facility] HealthOpen Learning.; [facility] [employer]g'd. Comment on above: Patient Position: Sitting; Cuff Location : Left Arm; Cuff Size: Standard 09-09-2014 14:46-0400 Heart rate 114 /min JASKARAN LLANES MD Work Phone: [facility] CenterVertiFlex [facility] HealthOpen Learning.; [employer] [facility], Inc. Comment on above: Pattern: Regular 09-09-2014 14:46-0400 Systolic blood pressure 144 mm[Hg] JASKARAN LLANES MD Work Phone: [facility] [employer] Display System Trinity HealthOpen Learning.; [place] [employer] Display System [facility], Inc. Comment on above: Patient Position: Sitting; Cuff Location : Left Arm; Cuff Size: Standard 06-18-2014 09:20-0500 Body height 162.56 cm SAS[facility] [employer] [facility], Inc.; [address] [facility] [employer] [facility], Inc. 06-18-2014 09:20-0500 Body mass index (BMI) [Ratio] 23.34 kg/m2 GRANGER [facility] [employer] [facility], Inc.; [facility] [employer] [facility], Inc. 06-18-2014 09:20-0500 Body surface area Derived from formula 1.66 m2 [facility] HealthOpen Learning.; [address] [facility] [employer] [facility], Inc. 06-18-2014 09:20-0500 Body weight 61.69 kg SASCHA [facility] [employer] [facility] HealthOpen Learning.; [facility] [employer] [facility], Inc. 06-18-2014 09:20-0500 Diastolic blood pressure 97 mm[Hg] SASCHA [facility] [employer] [facility], Inc.; [place] [facility] [employer] Display System [facility], Inc. Comment on above: Patient Position: Sitting; Cuff Location : Left Arm; Cuff Size: Standard 06-18-2014 09:20-0500 Heart rate 85 /min SASCHA [facility]FORMER[facility] [employer] Inc.; [place] [facility] [employer] Display System [facility], Inc. Comment on above: Pattern: Regular 06-18-2014 09:20-0500 Systolic blood pressure 135 mm[Hg] SASCHA Inverted EdgeIn[facility] Inc.; [place] Nino [employer] [facility], Inc. Comment on above: Patient Position: Sitting; Cuff Location : Left Arm; Cuff Size: Standard 01-10-2014 13:15-0400 Body height 162.56 cm [facility], Inc.; [facility], Inc. 01-10-2014 13:15-0400 Body mass index (BMI) [Ratio] 23 kg/m2 [facility], Inc.; [facility], Inc. 01-10-2014 13:15-0400 Body surface area Derived from formula 1.65 m2 [facility], Inc.; [facility], Inc. 01-10-2014 13:15-0400 Body weight 60.78 kg [facility], Inc.; [facility], Inc. 01-10-2014 13:15-0400 Diastolic blood pressure 97 mm[Hg] [facility], Inc.; [facility] [employer] [facility], Inc. Comment on above: Patient Position: Sitting; Cuff Location : Left Arm; Cuff Size: Standard 01-10-2014 13:15-0400 Heart rate 106 /min [facility] [employer] Trinity HealthOpen Learning.; [address] [facility] [employer] [facility], Inc. Comment on above: Pattern: Regular 01-10-2014 13:15-0400 Systolic blood pressure 161 mm[Hg] [facility], Inc.; [facility] [employer] [facility], Inc. Comment on above: Patient Position: Sitting; Cuff Location : Left Arm; Cuff Size: Standard 07-07-2012 10:01-0500 Body height 162.56 cm [facility], Inc.; [facility] [employer] [facility], Inc. 07-07-2012 10:01-0500 Body mass index (BMI) [Ratio] 24.2 kg/m2 [facility] [employer] [facility], Inc.; [facility], Inc. 07-07-2012 10:01-0500 Body surface area Derived from formula 1.69 m2 [facility], Inc.; [facility] [employer] [facility], Inc. 07-07-2012 10:01-0500 Body temperature 98.5 [degF] [facility], Inc.; [facility] CenterOpen Learning. Comment on above: Method: Oral 07-07-2012 10:01-0500 Body weight 63.96 kg [facility].; [facility] CenterRealtime Games [facility]. 07-07-2012 10:01-0500 Diastolic blood pressure 67 mm[Hg] [facility] Inc.; [facility] CenterOpen Learning. Comment on above: Patient Position: Sitting; Cuff Location : Left Arm; Cuff Size: Standard 07-07-2012 10:01-0500 Heart rate 70 /min [facility] HospitalRealtime Games [facility].; [facility] CenterOpen Learning. Comment on above: Pattern: Regular 07-07-2012 10:01-0500 Systolic blood pressure 101 mm[Hg] [facility] HospitalRealtime Games Inc.; [facility] CenterOpen Learning. Comment on above: Patient Position: Sitting; Cuff Location : Left Arm; Cuff Size: Standard 05-11-2012 16:36-0500 Body height 162.56 cm JASKARAN LLANES MD Work Phone: [facility].; [employer] [facility] BaptistOpen Learning. 05-11-2012 16:36-0500 Body mass index (BMI) [Ratio] 24.03 kg/m2 JASKARAN LLANES MD Work Phone: [facility] CenterOpen Learning.; [facility] HOSPITALBizen [facility] BaptistOpen Learning. 05-11-2012 16:36-0500 Body surface area Derived from formula 1.68 m2 JASKARAN LLANES MD Work Phone: [facility] CenterOpen Learning.; [employer] [facility] [employer] Trinity HealthOpen Learning. 05-11-2012 16:36-0500 Body temperature 98.5 [degF] JASKARAN LLANES MD Work Phone: [facility] CenterOpen Learning.; [facility] [employer] [facility] HealthOpen Learning. Comment on above: Method: Oral 05-11-2012 16:36-0500 Body weight 63.5 kg JASKARAN LLANES MD Work Phone: [facility] [employer] Trinity HealthOpen Learning.; [facility] HOSPITALBizen [facility] [employer] [facility] HealthOpen Learning. 05-11-2012 16:36-0500 Diastolic blood pressure 82 mm[Hg] JASKARAN LLANES MD Work Phone: [facility] [employer] [facility] HealthOpen Learning.; [employer] [facility] CenterVertiFlex [facility] HealthOpen Learning. Comment on above: Patient Position: Sitting; Cuff Location : Left Arm; Cuff Size: Standard 05-11-2012 16:36-0500 Systolic blood pressure 118 mm[Hg] JASKARAN LLANES MD Work Phone: [facility] [employer] [facility] HealthOpen Learning.; [facility] HOSPITALBizen [facility] [employer] [facility] HealthOpen Learning. Comment on above: Patient Position: Sitting; Cuff Location : Left Arm; Cuff Size: Standard 04-28-2012 11:36-0500 Body height 162.56 cm [facility] [employer] Trinity HealthOpen Learning.; [facility] [employer] [facility] HealthOpen Learning. 04-28-2012 11:36-0500 Body mass index (BMI) [Ratio] 24.03 kg/m2 [facility] HospitalRealtime Games [facility].; [facility] [employer] [facility] HealthOpen Learning. 04-28-2012 11:36-0500 Body surface area Derived from formula 1.68 m2 [facility] [employer] Trinity HealthRealtime Games [facility].; [facility] [employer] [facility] HealthOpen Learning. 04-28-2012 11:36-0500 Body temperature 99 [degF] [facility] [employer] [facility] HealthOpen Learning.; [facility] [employer] [facility] HealthOpen Learning. Comment on above: Method: Oral 04-28-2012 11:36-0500 Body weight 63.5 kg [facility] [employer] [facility] HealthOpen Learning.; [facility] [employer] [facility] HealthOpen Learning. 04-28-2012 11:36-0500 Diastolic blood pressure 68 mm[Hg] [facility] [employer] Trinity HealthRealtime Games Inc.; [facility] [employer] [facility], [employer]. Comment on above: Patient Position: Sitting; Cuff Location : Left Arm; Cuff Size: Standard 04-28-2012 11:36-0500 Heart rate 78 /min SANGEETA FRANCIS [facility] CenterOpen Learning.; [address] [facility] [employer] [facility] HealthOpen Learning. Comment on above: Pattern: Regular 04-28-2012 11:36-0500 Systolic blood pressure 103 mm[Hg] SANGEETA FRANCIS [facility] CenterRealtime Games Inc.; [facility] [employer] [facility], [employer]. Comment on above: Patient Position: Sitting; Cuff Location : Left Arm; Cuff Size: Standard 07-14-2011 14:26-0500 Body height 162.56 cm JASKARAN LLANES MD Work Phone: [facility] [employer] [facility] HealthOpen Learning.; [address] [facility] [employer] [facility] HealthOpen Learning. 07-14-2011 14:26-0500 Body mass index (BMI) [Percentile] Per age and sex 75 % JASKARAN LLANES MD Work Phone: [facility] CenterVertiFlex [facility] HealthOpen Learning.; [address] [facility] [employer] [facility] HealthOpen Learning. 07-14-2011 14:26-0500 Body mass index (BMI) [Ratio] 24.37 kg/m2 JASKARAN LLANES MD Work Phone: [facility] [employer] [facility] HealthOpen Learning.; [address] [facility] [employer] [facility] HealthOpen Learning. 07-14-2011 14:26-0500 Body surface area Derived from formula 1.69 m2 JASKARAN LLANES MD Work Phone: [facility] CenterVertiFlex [facility] HealthOpen Learning.; [address] [facility] [employer] [facility] HealthOpen Learning. 07-14-2011 14:26-0500 Body temperature 98.7 [degF] JASKARAN LLANES MD Work Phone: [facility] CenterVertiFlex [facility] HealthOpen Learning.; [facility] [employer] [facility] HealthOpen Learning. Comment on above: Method: Oral 07-14-2011 14:26-0500 Body weight 64.41 kg JASKARAN LLANES MD Work Phone: [employer] NinoVertiFlex [facility] HealthOpen Learning.; [facility] [employer]. 07-14-2011 14:26-0500 Diastolic blood pressure 77 mm[Hg] JASKARAN LLANES MD Work Phone: [email or web address].; [facility] [employer] Display System [facility] HealthOpen Learning. Comment on above: Patient Position: Sitting; Cuff Location : Left Arm; Cuff Size: Large 07-14-2011 14:26-0500 Heart rate 99 /min JASKARAN LLANES MD Work Phone: [facility] CenterVertiFlex [facility] HealthOpen Learning.; [facility] [employer]. Comment on above: Pattern: Regular 07-14-2011 14:26-0500 Systolic blood pressure 149 mm[Hg] JASKARAN LLANES MD Work Phone: [email or web address].; [facility] [employer]. Comment on above: Patient Position: Sitting; Cuff Location : Left Arm; Cuff Size: Large 01-07-2011 13:28-0400 Body height 162.56 cm JASKARAN LLANES MD Work Phone: [facility] CenterVertiFlex [facility] HealthOpen Learning.; [facility] [employer]. 01-07-2011 13:28-0400 Body mass index (BMI) [Percentile] Per age and sex 69 % JASKARAN LLANES MD Work Phone: [employer] NinoVertiFlex [facility] HealthOpen Learning.; [facility] [employer]. 01-07-2011 13:28-0400 Body mass index (BMI) [Ratio] 23.34 kg/m2 JASKARAN LLANES MD Work Phone: [employer] NinoVertiFlex [facility] HealthOpen Learning.; [facility] [employer]. 01-07-2011 13:28-0400 Body surface area Derived from formula 1.66 m2 JASKARAN LLANES MD Work Phone: [email or web address].; [place] [facility] CenterEastide. 01-07-2011 13:28-0400 Body temperature 97.8 [degF] JASKARAN LLANES MD Work Phone: [employer] NinoVertiFlex [facility] HealthOpen Learning.; [employer]. Comment on above: Method: Oral 01-07-2011 13:28-0400 Body weight 61.69 kg JASKARAN LLANES MD Work Phone: [employer] [facility] HealthOpen Learning.; [employer]. 01-07-2011 13:28-0400 Diastolic blood pressure 69 mm[Hg] JASKARAN LLANES MD Work Phone: [facility] CenterEastide.; [facility] [employer]. Comment on above: Patient Position: Sitting; Cuff Location : Left Arm; Cuff Size: Standard 01-07-2011 13:28-0400 Heart rate 81 /min JASKARAN LLANES MD Work Phone: [employer] [facility] HealthOpen Learning.; [facility] [employer]. Comment on above: Pattern: Regular 01-07-2011 13:28-0400 Systolic blood pressure 109 mm[Hg] JASKARAN LLANES MD Work Phone: [email or web address].; [facility] [employer]. Comment on above: Patient Position: Sitting; Cuff Location : Left Arm; Cuff Size: Standard 11-09-2010 16:090400 Body height 162.56 cm JASKARAN LLANES MD Work Phone: [employer] [facility] HealthOpen Learning.; [facility] [employer]. 11-09-2010 16:09-0400 Body mass index (BMI) [Percentile] Per age and sex 75 % JASKARAN LLANES MD Work Phone: [email or web address].; [facility] [employer]. 11-09-2010 16:09-0400 Body mass index (BMI) [Ratio] 24.2 kg/m2 JASKARAN LLANES MD Work Phone: [email or web address].; [facility] [employer]. 11-09-2010 16:09-0400 Body surface area Derived from formula 1.69 m2 JASKARAN LLANES MD Work Phone: [email or web address].; [place] [facility] CenterEast[facility]. 11-09-2010 16:09-0400 Body weight 63.96 kg JASKARAN LLANES MD Work Phone: [employer] NinoVertiFlex [facility] HealthPush Health; [facility] [employer] [facility] HealthOpen Learning. 03-22-2010 16:26-0500 Body height 162.56 cm JASKARAN LLANES MD Work Phone: [facility] [employer] [facility] HealthPush Health; [facility] [employer] [facility] HealthOpen Learning. 03-22-2010 16:26-0500 Body mass index (BMI) [Percentile] Per age and sex 77 % JASKARAN LLANES MD Work Phone: [facility] [employer] [facility] HealthPush Health; [address] [facility] [employer] [facility] HealthPush Health 03-22-2010 16:26-0500 Body mass index (BMI) [Ratio] 24.2 kg/m2 JASKARAN LLANES MD Work Phone: [facility] CenterVertiFlex [facility] HealthPush Health; [facility] [employer]. 03-22-2010 16:26-0500 Body surface area Derived from formula 1.69 m2 JASKARAN LLANES MD Work Phone: [facility] CenterVertiFlex [facility] HealthPush Health; [facility] [employer]. 03-22-2010 16:26-0500 Body temperature 98.8 [degF] JASKARAN LLANES MD Work Phone: [employer] NinoPrivacyStar; [facility] [employer]. Comment on above: Method: Oral 03-22-2010 16:26-0500 Body weight 63.96 kg JASKARAN LLANES MD Work Phone: [employer] N[employer]PrivacyStar; [facility] [employer]. 03-22-2010 16:26-0500 Diastolic blood pressure 72 mm[Hg] JASKARAN LLANES MD Work Phone: [employer] NinoPrivacyStar; [facility] [employer]. Comment on above: Patient Position: Sitting; Cuff Location : Left Arm; Cuff Size: Standard 03-22-2010 16:26-0500 Heart rate 88 /min JASKARAN LLANES MD Work Phone: [facility]; [facility] CenterRealtime Games [facility] Comment on above: Pattern: Regular 03-22-2010 16:26-0500 Systolic blood pressure 119 mm[Hg] JASKARAN LLANES MD Work Phone: [facility]; [facility]Real[facility] Comment on above: Patient Position: Sitting; Cuff Location : Left Arm; Cuff Size: Standard Encounters Encounter Date Encounter Type Care Provider Facility Start: 10-17-2024 End: 10-17-2024 Historical Summary JASKARAN LLANES MD [facility] Start: 10-17-2024 Non-patient / Non-visit Junior Contreras nd, DO -[facility] Start: 10-17-2024 End: 10-17-2024 Admission to same day surgery center Juniortanner Gomez DO -Endoscopy Work Phone: Start: 10-17-2024 End: 10-17-2024 ambulatory Jaskraan Llanes Facility:[facility] Start: 10-16-2024 Encounter for other preprocedural examination [facility] Start: 10-08-2024 ambulatory IZABEL PATTERSON DDS Facilit y:A Start: 10-07-[address] JASKARAN KATE MD Facility:A Start: 09-03-2024 End: 09-03-2024 Patient encounter procedure Jayda JOSEPH -[facility] Work Phone: Start: 09-03-2024 End: 09-03-2024 ambulatory Jayda Nova Facility:[facility] Start: 08-06-2024 End: 08-06-2024 Office outpatient visit 15 minutes [facility]ASKARAN LLANES MD [facility] Start: 06-25-2024 End: 06-25-2024 Patient encounter procedure Jayda JOSEPH -[facility] Work Phone: Start: 06-25-2024 End: 06-25-2024 ambulatory Jayda Nova Facility:[facility] Start: 04-24-2024 End: 04-24-2024 Injection/immunization only JASKARAN LLANES MD [facility] Start: 01-26-2024 End: 01-26-2024 Patient encounter procedure JASKARAN LLANES MD Work Phone: [facility]; [facility] Start: 01-26-2024 End: 01-26-2024 Periodic preventive med est patient 18-39 yrs JASKARAN LLANES MD Work [facility]: [facility] Start: 05-29-2023 End: 05-29-2023 Office outpatient visit 10 minutes JASKARAN LLANES MD Work [facility]: [facility] Start: 11-26-2022 End: 11-26-2022 Office outpatient visit 15 minutes JASKARAN LLANES MD Work Phone: [facility] Start: 10-28-2022 End: 10-30-2022 Evaluation and management of inpatient SAJI Roland YOUSSEF PACKAGE LINE RELIEF OPERATOR-CNM Facility:B Start: 10-28-2022 End: 10-30-2022 Evaluation and management of inpatient SAJI YOUSSEF PACKAGE LINE RELIEF OPERATOR-CNM [facility] Start: 10-19-2022 End: 10-19-2022 ambulatory ARIAN BENTON PACKAGE LINE RELIEF OPERATOR-CNM Facility:B Start: 10-19-2022 End: 10-19-2022 SAME DAY STAY ARIAN BENTON PACKAGE LINE RELIEF OPERATOR-CNM [facility] Start: 10-05-2022 End: 10-10-2022 ambulatory ARIAN BENTON PACKAGE LINE RELIEF OPERATOR-CNM Facility:B Start: 10-05-2022 End: 10-09-2022 Outreach Lab ARIAN BENTON PACKAGE LINE RELIEF OPERATOR-CNM [facility] Start: 09-26-2022 End: 09-26-2022 Office outpatient visit 15 minutes JASKARAN LLANES MD [facility] Start: 08-25-2022 End: 08-30-2022 ambulatory NIRANJAN VERGARA PACKAGE LINE RELIEF OPERATOR-MANAGER MEDIA Facility:A Start: 08-05-2022 End: 08-10-2022 ambulatory PHOENIX PHAN PACKAGE LINE RELIEF OPERATOR-MANAGER MEDIA Facility:A Start: 08-05-2022 End: 08-05-2022 Lab Only JASKARAN LLANES MD Work Phone: [facility] Start: 08-03-2022 End: 08-03-2022 ambulatory HILARY PATEL [facility] Start: 07-01-2022 End: 07-01-2022 Office outpatient visit 15 minutes JASKARAN LLANES MD Work Phone: [facility] Start: 06-23-2022 End: 06-24-2022 ambulatory ARIAN Roland BENTON PACKAGE LINE RELIEF OPERATOR-CNM Facility:B Start: 06-23-2022 End: 06-23-2022 Patient encounter procedure ARIAN BENTON PACKAGE LINE RELIEF OPERATOR-CNM [facility] Start: 06-09-2022 End: 06-10-2022 ambulatory ARIAN BENTON PACKAGE LINE RELIEF OPERATOR-CNM Facility:B Start: 06-09-2022 End: 06-09-2022 Patient encounter procedure ARIAN BENTON PACKAGE LINE RELIEF OPERATOR-CNM [facility] Start: 05-05-2022 End: 05-10-2022 ambulatory JEFF BASSETT PACKAGE LINE RELIEF OPERATOR-MANAGER MEDIA Facility:A Start: 04-20-2022 End: 04-20-2022 Lab Only JASKARAN LLANES MD Work Phone: [facility] Start: 04-19-2022 End: 04-24-2022 ambulatory ARIAN BENTON PACKAGE LINE RELIEF OPERATOR-CNM Facility:A Start: 04-19-2022 End: 04-24-2022 ambulatory ARIAN BENTON PACKAGE LINE RELIEF OPERATOR-CNM Facility:A Start: 04-14-2022 End: 04-19-2022 ambulatory PHOENIX PHAN PACKAGE LINE RELIEF OPERATOR-MANAGER MEDIA Facility:[facility] Start: 04-14-2022 End: 04-14-2022 Office outpatient visit 15 minutes JASKARAN LLANES MD Work Phone: [facility] Start: 04-07-2022 End: 04-07-2022 Office outpatient visit 15 minutes JASKARAN LLANES MD Work Phone: [facility] Start: 03-15-2022 End: 03-16-2022 ambulatory ARIAN BENTON PACKAGE LINE RELIEF OPERATOR-CNM Facility:B Start: 03-15-2022 End: 03-15-2022 Patient encounter procedure ARIAN BENTON PACKAGE LINE RELIEF OPERATOR-CNM [facility] Start: 09-01-2021 End: 09-05-2021 Outreach Lab ARIAN BENTON PACKAGE LINE RELIEF OPERATOR-CNM [facility] Start: 07-27-2021 End: 07-27-2021 Medication Refill/Order JASKARAN LLANES MD Work Phone: [facility] Start: 07-23-2021 End: 07-23-2021 Office outpatient visit 15 minutes JASKARAN LLANES MD Work Phone: [facility] Start: 06-23-2021 End: 06-24-2021 Results Review JASKARAN LLANES MD Work Phone: [employer] Start: 06-22-2021 End: 06-22-2021 Office outpatient visit 15 minutes JASKARAN LLANES MD Work Phone: [employer] Start: 06-08-2021 End: 06-08-2021 Historical Summary JASKARAN LLANES MD Work Phone: [employer] Start: 06-04-2021 End: 06-07-2021 Injection/immunization only JASKARAN LALNES MD Work Phone: [employer] Start: 07-08-2019 End: 07-08-2019 Office outpatient visit 15 minutes JASKARAN LLANES MD Work Phone: [employer] Start: 10-31-2018 End: 10-31-2018 Office outpatient visit 15 minutes JASKARAN LLANES MD Work Phone: [employer] Start: 07-17-2018 End: 07-17-2018 Office outpatient visit 15 minutes JASKARAN LLANES MD Work Phone: [facility] [employer] Start: 07-16-2018 End: 07-16-2018 Medication Refill/Order JASKARAN LLANES MD Work Phone: [employer] Start: 07-16-2018 End: 07-16-2018 Results Review JASKARAN LLANES MD Work Phone: [employer] Start: 07-13-2018 End: 07-13-2018 Office outpatient visit 15 minutes JASKARAN LLANES MD Work Phone: [employer] Start: 04-28-2017 End: 04-28-2017 Medication Refill/Order JASKARAN LLANES MD Work Phone: [employer] Start: 03-21-2017 End: 03-21-2017 Historical Summary [facility]ASKARAN LLANES [facility] Start: 02-07-2017 End: 02-07-2017 Office outpatient visit 15 minutes JASKARAN LLANES MD Work Phone: [facility] [employer] [facility]. Start: 12-05-2016 End: 12-05-2016 Office outpatient visit 15 minutes JASKARAN LLANES MD Work Phone: [facility] [employer] Start: 09-19-2016 End: 09-19-2016 Office outpatient visit 15 minutes JASKARAN LLANES MD Work Phone: [facility] [employer] [facility] Start: 02-16-2016 End: 02-16-2016 Medication Refill/Order JASKARAN LLANES MD Work Phone: [facility] [employer] [facility]. Start: 02-04-2016 End: 02-04-2016 Office outpatient visit 15 minutes JASKARAN LLANES MD Work Phone: [facility] [employer] Start: 07-30-2015 End: 07-30-2015 Office outpatient visit 15 minutes JASKARAN LLANES MD Work Phone: [facility] [employer] Start: 03-09-2015 End: 03-09-2015 Results Review JASKARAN LLANES MD Work Phone: [facility] [employer] [facility] Start: 02-14-2015 End: 02-15-2015 Medication Refill/Order JASKARAN LLANES MD Work Phone: [facility] [employer]. Start: 02-05-2015 End: 02-05-2015 Results Review [facility]ASKARAN LLANES MD [facility] Start: 01-23-2015 End: 01-23-2015 Transition of Care JASKARAN LLANES MD Work Phone: [facility] [employer] [facility]. Start: 01-14-2015 End: 01-14-2015 Office outpatient visit 15 minutes JASKARAN LLANES MD [facility] Start: 12-11-2014 End: 12-11-2014 Medication Refill/Order JASKARAN LLANES MD [facility]: [facility] Start: 12-11-2014 End: 12-11-2014 Office outpatient visit 15 minutes JASKARAN LLANES MD [facility]: [facility] Start: 10-23-2014 End: 10-23-2014 Medication Refill/Order JASKARAN LLANES MD Work Phone: [employer] [employer] [facility] Start: 10-20-2014 End: 10-20-2014 Office outpatient visit 15 minutes JASKARAN LLANES MD [facility]: [facility] Start: 09-09-2014 End: 09-09-2014 Office outpatient visit 15 minutes JASKARAN LLANES MD Work [facility]: [facility] Start: 06-18-2014 End: 06-18-2014 Office outpatient visit 15 minutes JASKARAN LLANES MD Work Phone: [employer] [facility] Start: 01-20-2014 End: 01-20-2014 Medication Refill/Order JASKARAN LLANES MD [facility]. Start: 01-10-2014 End: 01-10-2014 Patient encounter procedure JASKARAN LLANES MD Work Phone: [place] [facility] [employer]. Start: 07-07-2012 End: 07-07-2012 Patient encounter procedure JASKARAN LLANES MD Work Phone[facility]. Start: 05-11-2012 End: 05-11-2012 Patient encounter procedure JASKARAN LLANES MD [facility] Start: 04-28-2012 End: 04-28-2012 Patient encounter procedure [facility]ASKAR[facility] LLANES MD [facility] Start: 07-15-2011 End: 07-15-2011 Medication Refill/Order JASKARAN LLANES MD [facility] Start: 07-14-2011 End: 07-14-2011 Patient encounter procedure JASKARAN LLANES MD [facility] Start: 05-02-2011 End: 05-02-2011 Injection/immunization only JASKARAN LLANES MD [facility] Start: 01-07-2011 End: 01-07-2011 Patient encounter procedure JASKARAN LLANES MD [facility] Start: 12-27-2010 End: 12-27-2010 Injection/immunization only JASKARAN LLANES MD [facility] Start: 11-09-2010 End: 11-09-2010 Injection/immunization only JASKARAN LLANES MD [facility] Start: 05-04-2010 End: 05-04-2010 Annotation/Addendum JASKARAN LLANES MD [facility] Start: 03-22-2010 End: 03-22-2010 Patient encounter procedure JASKARAN LLANES MD [facility] Start: 03-22-2010 End: 03-22-2010 Historical Summary JASKARAN LLANES MD Work [facility] Procedures Date Procedure Procedure Detail Performing Clinician Start: 10-17-[address] Jaskaran kate MD Work Phone: Start: 01-26-2024 End: 01-26-2024 Dischrg meds reconciled w/current med list JASKARAN LLANES MD Work Phone: Start: 05-29-2023 End: 05-29-2023 Dischrg meds reconciled w/current med list PHOENIX Gipson ABNERTETTER EXTRACTION OPERATOR-C Work Phone: Start: 11-26-2022 End: 11-26-2022 Dischrg meds reconciled w/current med list LIZY BERUMEN EXTRACTION OPERATOR-BC Work Phone: Start: 09-26-2022 End: 09-26-2022 Dischrg meds reconciled w/current med list PHOENIX Gipson HOKLAUSNITINTTER EXTRACTION OPERATOR-C Work Phone: Start: 07-01-2022 End: 07-01-2022 Dischrg meds reconciled w/current med list PHOENIX Gipson HOKLAUSTETTER EXTRACTION OPERATOR-C Work Phone: Start: 04-14-2022 End: 04-14-2022 Dischrg meds reconciled w/current med list PHOENIX Gipson HOKLAUSTETTER EXTRACTION OPERATOR-C Work Phone: Start: 04-07-2022 End: 04-07-2022 Dischrg meds reconciled w/current med list PHOENIX Gipson ABNERNITINTTER EXTRACTION OPERATOR-C Work Phone: Start: 07-23-2021 End: 07-23-2021 Dischrg meds reconciled w/current med list PHOENIX Gipson EMILIE EXTRACTION OPERATOR-C Work Phone: Start: 06-22-2021 End: 06-22-2021 Dischrg meds reconciled w/current med list Compa BERUMEN MD Work Phone: Start: 08-26-2020 End: 08-26-2020 Vaccination given JACQUIE JOSHI RN Comment on above: Moderna dose #1 Booster 03/29/2021 Moderna dose #[address] 03/29/2021 Moderna Booster 04/29/2023 Start: 07-08-2019 End: 07-08-2019 Urinary Incontinence PHOENIX PHAN EXTRACTION OPERATOR-C Work Phone: Comment on above: Negative. Start: 10-31-2018 End: 10-31-2018 Dischrg meds reconciled w/current med list JASKARAN LLANES MD Work Phone: Start: 10-31-2018 End: 10-31-2018 Collj & interpj physiol data min 30 min ea 30 d JASKARAN LLANES MD Work Phone: Start: 06-08-2018 Laser assisted in situ keratomileusis ARIAN BENTON PACKAGE LINE RELIEF OPERATOR-CNM Start: 04-28-2017 End: 04-28-2017 Collj & interpj physiol data min 30 min ea 30 d KYLE LLANES MD Work Phone: Start: 03-14-2017 End: 03-14-2017 24 Hour ECG PHOENIX PHAN EXTRACTION OPERATOR-C Work Phone: Comment on above: Within Normal Limits. PACs and PVC, infr equent. Start: 02-18-2015 End: 02-18-2015 Cholecystectomy Sagrario Santana Comment on above: Nika Mead Start: 02-14-2015 End: 02-14-2015 Collj & interpj physiol data min 30 min ea 30 d KYLE LLANES MD Work Phone: Start: 01-22-2015 End: 01-22-2015 Radionuclide biliary patency study WHITN ANTONIO KENNEDYLISANDRO EXTRACTION OPERATOR-C Work Phone: Comment on above: Abnormal. Start: 05-08-2014 Cholecystectomy ARIAN BENTON PACKAGE LINE RELIEF OPERATOR-CNM Start: 05-08-2010 Extraction of wisdom tooth ARIAN [place] [employer]ACKAGE LINE RELIEF OPERATOR-CNM Start: 05-08-2007 Jaw and temporomandibular joint operations ARIAN BENTON PACKAGE LINE RELIEF OPERATOR-CNM Plan of Treatment Date Care Activity Detail Author Start: 11-11-2024 Patient encounter procedure Medical; PRE OPERATIVE PHYSICAL - Nika main-nose plasty-requested clearence [facility] [employer] Start: 11-Nov-2024 10:00-04:00 ANDREW TORRES Appointment Request [facility] [employer] [facility] Start: 10-17-2024 [facility] Start: 04-20-2022 Blood typing serologic rh (d) [facility] [employer]; [facility] [employer] [facility] Start: 04-14-2022 Culture bct isol&prsmptv id isolate ea urine [facility] [employer]; [facility] [employer] Start: 04-07-2022 Patient Education SINUSITIS In dication: Other acute sinusitis, recurrence not specified Start: 07-Apr-2022 Instruction Type: Patient Education [facility] [employer]; [facility] [employer]. Start: 06-22-2021 Ecg routine ecg w/least 12 lds w/i&r ELECTROCARDIOGRAM, COMPLETE (26744) Start: 22-Jun-2021 Intent [facility] [employer]; [facility] [employer] Start: 02-07-2017 Xtrnl pt activated ecg rec dwnld 30 days EVENT MONITORING AND ANYALYSIS (17574) Start: 07-Feb-2017 Intent Comments: 4 weeks. [facility] [employer]; [facility] [employer] Comment on above: 4 weeks. Start: 01-14-2015 Hepatobil syst imag inc gb w/pharma intervenj HIDA SCAN WITH EF (40074) Start: 14-Jan-2015 Intent [facility] [employer]; [facility] [employer]. Start: 10-20-2014 Patient Education BENIGN POSIT IONAL VERTIGO Indication: BENIGN POSITIONAL VERTIGO Start: 20-Oct-2014 Instruction Type: Patient Education [facility] [employer]; [facility] [employer] Start: 07-07-2012 Patient Education BRONCHITIS - PNEUMONIA INSTRUCTIONS Indication: SINOBRONCHITIS (Renamed from Acute upper respiratory infection of multiple sites) Start: 07-Jul-2012 Instruction Type: Patient Education [facility] [employer] [facility] [place] [facility] [employer] Start: 04-28-2012 Patient Education SINUSITIS In dication: SINUSITIS (Renamed from Acute infection of nasal sinus) Start: 28-Apr-2012 Instruction Type: Patient Education [facility]; [place] [facility] [employer] [facility]. COVID-Moderna (1 00 MCG/0.5 ML) Scheduled for Administration Intent [facility] [employer] [facility]; [facility] Immunizations Immunization Date Immunization Notes Care Provider Meka fair 04-24-2024 influenza virus vaccine, unspecified formulation JASKARAN LLANES MD Work Phone: [facility]; [facility] Comment on above: Had immunization. 04-24-2024 unknown vaccine or immune globulin JASKARAN LLANES MD Work Phone: [facility]; [facility] 04-24-2024 influenza, seasonal, injectable, preservative free JASKARAN LLANES MD Work Phone: [facility]; [facility]. Comment on above: Site: Right DeltoidV IS Given: * Influenza (Flu) Vaccine (Inactivated or Recombinant) (12/11/20) 04-29-2023 COVID-Moderna (100 MCG/0.5 ML) JASKARAN LLANES MD Work Phone: [facility]; [facility]. 02-21-2023 influenza virus vaccine, unspecified formulation JASKARAN LLANES MD Work Phone: [facility]; [facility] Comment on above: Had immunization. 02-21-2023 influenza, injectabl e, quadrivalent, contains preservative JASKARAN LLANES MD Work Phone: [facility] [employer] [facility]; [facility] [employer] [facility] 06-04-2021 tetanus toxoid, redu jen diphtheria toxoid, and acellular pertussis vaccine, adsorbed JASKARAN LLANES MD Work Phone: [facility] [employer] [facility]; [facility] [employer] [facility] Comment on above: Site: Left DeltoidVI S Given: * Tdap (Tetanus, Diphtheria, Pertussis) (08/07/2019) 06-04-2021 *IMMUNIZATION ADMIN ([id number]) JASKARAN LLANES MD Work Phone: [facility] [employer] [facility]; [facility] [employer] [facility] 03-29-2021 COVID-Moderna (100 MCG/0.5 ML) JASKARAN LLANES MD Work Phone: [facility] [employer] [facility]; [facility] [employer] [facility] 02-05-2021 influenza, injectabl e, quadrivalent, contains preservative JASKARAN LLANES MD Work Phone: [facility] [employer] [facility]; [facility] [employer] [facility] 08-26-2020 COVID-Moderna (100 MCG/0.5 ML) JASKARAN LLANES MD Work Phone: [facility] [employer] [facility]; [facility] [employer] [facility] 07-29-2020 COVID-Moderna (100 MCG/0.5 ML) JASKARAN LLANES MD Work Phone: [facility] [employer] [facility]; [facility] [employer] [facility] 05-02-2011 human papilloma viru s vaccine, quadrivalent JASKARAN LLANES MD Work Phone: [facility] [employer] [facility]; [facility] [employer] [facility] Comment on above: Site: Deltoid (Left) Started series at age 19. 05-02-2011 *IMMUNIZATION ADMIN ([id number]) JASKARAN LLANES MD Work Phone: [employer]; [place] [facility] [employer]. 12-27-2010 human papilloma viru s vaccine, quadrivalent JASKARAN LLANES MD Work Phone: [facility] [employer]; [employer] [facility] [employer]. Work Phone: Comment on above: Site: Deltoid (Left) ADDENDA: Public supply used, not private as noted in the injection date (Tuesday, May 10, 2011) 12-27-2010 *IMMUNIZATION ADMIN ([id number]) JASKARAN LLANES MD Work Phone: [facility] [employer]; [place] [facility] [employer]. 11-09-2010 human papilloma viru s vaccine, quadrivalent JASKARAN LLANES MD Work Phone: [facility] [employer]; [place] [facility] [employer]. Work Phone: Comment on above: Site: Deltoid (Left) ADDENDA: Public supply used, not private as noted on injection date. (Tuesday, May 10, 2011) 11-09-2010 *IMMUNIZATION ADMIN ([id number]) JASKARAN LLANES MD Work Phone: [facility] [employer]; [employer] [facility] [employer]. influenza virus vaccine, unspecified formulation JASKARAN LLANES MD Work Phone: [facility] [employer]; [facility] [employer]. Comment on above: Had immunization. Payers Date Payer Category Payer Unknown [id number] 2024 Self-pay 2022 Unknown [id number] 1991 Unknown [id number] 2.16.84 [id number] 1991 Unknown [id number] 2.16.8 [id number] 1991 Unknown [id number] 2.16.8 40.1.655971.3.579.2. 1991 Unknown [id number] 2.16.8 [id number] 1991 Unknown [id number] 2.16.8 40.1.873943.3.579.2.62 1991 Unknown [id number] 2.16.8 40.1.137526.3.579.2.62 1991 Unknown [id number] 2.16.8 40.1.745023.3.579.2. 1991 Unknown [id number] 2.16.8 40.1.184677.3.579.2. 1991 Unknown [id number] 2.16.8 40.1.896915.3.579.2.62 1991 Unknown [id number] 2.16.8 40.1.022872.3.579.2.62 1991 Unknown [id number] 2.16.8 [id number] 1991 Unknown [id number] 2.16.8 40.1.520039.3.579.2. 1991 Unknown [id number] 2.16.8 [id number] 1991 Unknown [id number] 2.16.8 40.1.161806.3.579.2.62 1991 Unknown [id number] 2.16.8 [id number] Unknown Unknown [id number] 2.16.8 [id number] Unknown [id number] 2.16.8 [id number] Unknown [id number] 2.16.8 [id number] Unknown [facility] [id number] Social History Date Type Detail Facility Start: 08-13-2018 End: 10-15-2024 Tobacco smoking status Never smoked tobacco (finding) [facility] Start: 1990 Sex Assigned At Female [facility] Alcohol Use: Alcohol Use: ; N o Alcohol Use. [facility] [employer] [facility]. Tobacco use: Tobacco use: ; N ever smoker. [facility].; [facility] [employer] [facility]. NEGATED: Highlighted row Not [facility] Medical Equipment Procedure Code Equipment Code Equipment Origin al Text Equipment Identifier Dates FDA Start: 08-20-2018 FDA Start: 08-20-2018 FDA Start: 08-20-2018 FDA Start: 08-20-2018 FDA Start: 08-20-2018 Unknown Unknown 08/20/18 Unknown Unknown FDA Start: 08-20-2018 FDA Start: 08-20-2018 FDA Start: 08-20-2018 FDA Start: 08-20-2018 FDA Start: 08-20-2018 Unknown Unknown 08/20/18 Unknown Unknown FDA Start: 08-20-2018 FDA Start: 08-20-2018 FDA Start: 08-20-2018 FDA Start: 08-20-2018 FDA Start: 08-20-2018 Unknown Unknown 08/20/18 Unknown Unknown FDA Start: 08-20-2018 FDA Start: 08-20-2018 FDA Start: 08-20-2018 FDA Start: 08-20-2018 FDA Start: 08-20-2018 Unknown Unknown 08/20/18 Unknown Unknown FDA Start: 08-20-2018 FDA Start: 08-20-2018 FDA Start: 08-20-2018 FDA Start: 08-20-2018 FDA Start: 08-20-2018 Unknown Unknown 08/20/18 Unknown Unknown FDA Start: 08-20-2018 FDA Start: 08-20-2018 FDA Start: 08-20-2018 FDA Start: 08-20-2018 FDA Start: 08-20-2018 Unknown Unknown 08/20/18 Unknown Unknown FDA Start: 08-20-2018 FDA Start: 08-20-2018 FDA Start: 08-20-2018 FDA Start: 08-20-2018 FDA Start: 08-20-2018 Goals Date Patient Goal Desired Activity /State Functional Status Date Assessment Result Facility 10-30-[address] [facility] 10-30-[address] [facility] 10-30-[address] [facility] 10-28-2022 Functional Status Home independently [facility] 10-19-2022 Functional Status Standard Safet y Safety level maintained [facility] 10-19-2022 Functional Status [address] in [facility] 10-19-[address] [facility] Mental Status Date Assessment Result Facility 10-17-2024 Cognitive function Voice/Name;Touch/Shaki ng [facility] Work Phone: 10-30-2022 Mental Status Oriented x 4 [facility] Clinical Notes 04-15-2022 to 10-17-2024 Note Date & Type Note Facility 10-17-2024 Consult note [facility] 10-17-2024 Procedure note [facility] 10-17-2024 Procedure note [facility] 10-17-2024 Consult note [facility] 10-17-2024 History and physi brina note [facility] 10-17-2024 Consult note [facility] 06-25-2024 Evaluation note Diagnosis Onset Date Resolution Heartburn acute June 25, 2024 2:59pm Skin tag of rectum acute 2024 2:59pm Epigastric pain acute August 9:57am Heartburn acute September 03 9:57am Epigastric pain acute October 10:41am Heartburn acute October 17 10:41am [facility] Work Phone: [phone] 476-946006-24-2023 Evaluation + Plan noteExtracted from: Title:Clinical Document Author:DOMONIQUE SAJI L PACKAGE LINE RELIEF OPERATOR-CNM Date:10/29/22 NIKA ADMISSION HISTORY AN D PHYSICIAL History and Physical/Admit Note: S: Patient is a 31 year old female at 40.0 wks GA with EDC of 10/29/2022 confirmed by second trimester ultrasound who present to [facility] with the complaint of CTX. When pt arrived CE was 3 and she quickly progressed to 8cm in less that 2 hours. Membranes intact until pt began pushing and SROM'd large amount of clear fluid. complications include: GBS POS with PCN and Clinda allergy, rh negative but IS rh negative History: NSVDx1, SABx1 Maternal medications include: PNV Bloodwork: Blood type: A negative; Rubella status: immune; HBsAG status: negative; HIV status: negative; GBS status: positive; RPR: NR O: Vitals Signs(Last 24 hrs)__Last Charted Minimum Maximum Temp36.5(OCT 28:27)36.5(OCT 28:27)36.5(OCT 28:27) Heart Rate94(OCT 29 00:48)84(OCT 28 21:27)94(OCT 29 00:48) Resp Rate18(OCT 28:27)18(OCT 28:27)18(OCT 28:27) KKN171(OCT 29 00:48)104(OCT 29 00:48)130(OCT 28:27) DBPC 49(OCT 29 00:48)C 49(OCT 29 00:48)88(OCT 28:27) Gen: alert, awake, in mild laboring distress Lungs: clear to auscultation bilaterally, equal breath sounds, no wheezes or crackles. Heart: RRR without murmur Abd: gravid uterus : cervical exam: Complete upon my arrival Membranes: SROM for clear fluid while pushing FHTs: Category 1 [place]: q 2-3 Ext: no edema 36hr Labs 10/28 2345 Hct36.2L Hgb11.9L MCH29.5 MCHC32.9L MCV89.5 MPV8.4 Wsoikeky849 RBC4.05L RDW13.6 WBC15.3H Lymphocyte %10.5 Monocyte %5.3 Neutrophil %83.8H Eosinophil %0.1 Basophil %0.3 Neutrophil, Hutyohmh14.8H Lymphocyte, Absolute1.6 Monocyte, Absolute0.8 Eosinophil, Absolute0.0 Basophil, Absolute0.0 10/29 2127 Blood Type, ExtSee Flowsheet Rubella, ExternSee Flowsheet HIV Antibodies,See Flowsheet Group B Strep,See Flowsheet Hepatitis B, ExSee Flowsheet Hepatitis B Date Performed1:[id number]:[id number]:0:0 RPR, ExternalSee Flowsheet Group B Strep Date [id number]:[id number]:0:0 Medication List Active Medications Ordered acetaminophen: 650 mg, 2 tab(s), Oral, q6h, PRN: Pain, scale 1-3. benzocaine topical: 1 spray(s), Perineum, q1h, PRN: Other (see order comments). benzocaine topical: 1 garcía, Perineum, AsDirected, PRN: to perineal sutures. bisacodyl: 10 mg, 1 supp, Rectal, qDay, PRN: Constipation. carboprost: 250 mcg, 1 mL, Intramuscular, Once, PRN: Other (see order comments). carboprost: 250 mcg, 1 mL, Intramuscular, Once, PRN: Other (see order comments). citric acid-sodium citrate: 30 mL, Oral, AsDirected, PRN: Gastric Upset. citric acid-sodium citrate: 30 mL, Oral, AsDirected, PRN: Gastric Upset. docusate: 100 mg, 1 cap(s), Oral, BID, PRN: Constipation. ferrous sulfate: 325 mg, 1 tab(s), Oral, BID. glycerin-witch luis armando topical: 1 garcía, Topical, AsDirected, PRN: Hemorrhoids. hydrocortisone-pramoxine topical: 1 garcía, Perineum, q1h, PRN: hemorrhoidal or perineal discomfort. hydrocortisone topical: 25 mg, 1 supp, Rectal, BID, PRN: hemorrhoidal discomfort. ibuprofen: 600 mg, 1 tab(s), Oral, q6h, PRN: uterine cramping. Lactated Ringers Infusion: 500 mL, IV Bolus, AsDirected, PRN: Other (see order comments). Lactated Ringers Infusion 1,000 mL: 125 mL/hr, Intravenous. lanolin topical: 7 g, 1 EA, Topical, AsDirected, PRN: Other (see order comments). lidocaine: 20 mg, 2 mL, Perineum, AsDirected, PRN: to perineal sutures. lidocaine: 20 mg, 2 mL, Perineum, AsDirected, PRN: to perineal sutures. methylergonovine: 0.2 mg, 1 mL, Intramuscular, Once, PRN: Other (see order comments). methylergonovine: 0.2 mg, 1 mL, Intramuscular, Once, PRN: Other (see order comments). miSOPROStol: 1,000 mcg, 5 tab(s), Rectal, Once, PRN: Other (see order comments). miSOPROStol: 1,000 mcg, Rectal, Once, PRN: Other (see order comments). ondansetron: 4 mg, 2 mL, IV Push, q4h, PRN: Nausea. oxytocin: 20 unit(s), 2 mL, Intramuscular, Once, PRN: Other (see order comments). oxytocin: 20 unit(s), 2 mL, Intramuscular, Once, PRN: Other (see order comments). oxytocin 20 unit(s) + LR Premix Diluent 1,000 mL: 999 mL/hr, Intravenous. oxytocin 20 unit(s) + LR Premix Diluent 1,000 mL: 999 mL/hr, Intravenous. oxytocin 20 unit(s) + LR Premix Diluent 1,000 mL: 125 mL/hr, Intravenous. RHo (D) immune globulin: 300 mcg, 2 mL, Intramuscular, AsDirected, PRN: if Rh factor neg per policy. simethicone: 80 mg, 1 tab(s), Chewed, TID, PRN: Dyspepsia. sodium biphosphate-sodium phosphate: 133 mL, Rectal, qDay, PRN: Constipation. terbutaline: 0.25 mg, 0.25 mL, Subcutaneous, AsDirected, PRN: Other (see order comments). tetanus/diphth/pertuss (Tdap) adult/adol: 0.5 mL, Intramuscular, Vaccine. tranexamic acid: 1 gram(s), 100 mL, 300 mL/hr, IV Piggyback, AsDirected, PRN: Other (see order comments). vancomycin: 1,750 mg, 35 mL, 350 mL/hr, IV Piggyback, q8hr. zolpidem: 5 mg, 1 tab(s), Oral, qHS, PRN: Sleep. Documented herbal/nutritional product: Oral, Daily, 0 Refill(s). multivitamin, : 1 tab(s), Oral, qPM, 0 Refill(s). Medications Inactivated in the Last 72 Hours Sodium Chloride 0.9% intravenous solution: Miscellaneous, Once. tranexamic acid: Miscellaneous, Once. vancomycin: Miscellaneous, Once. vancomycin: Miscellaneous, Once. A: 1. 31 yo female at 40.0 wks GA in active labor 2. GBS POSITIVE P: 1. Admit to L&D 2. Cont external monitoring 3. IV placement/locked 4. Expectant management 5. Frequent position changes/labor support 6. GBS protocol with: Vancomycin 7. Nitrous oxide for pain management per pt request Diagnostic Tests Pending * Rapid Plasma Reagin Test 10/28/22 [facility] 06-24-2023 Hospital Discharge instructions Patient Education 10/29/2022 01:08:50 Care After Vaginal Delivery Care After Vaginal Delivery This sheet gives you information about how to care for yourself from the time you deliver your babyto up to 6 12 weeks after delivery ( period). Your health care provider may also give youmore specific instructions. If you have problems or questions, contact your health care provider. Follow these instructions at home: Vaginal bleeding It is normal to have vaginal bleeding (lochia) after delivery. Wear a sanitary pad for vaginal bleeding and discharge. ?During the first week after delivery, the amount and appearance of lochia is often similar to a menstrual period. ?Over the next few weeks, it will gradually decrease to a dry, yellow-brown discharge. ?For most women, lochia stops completely by 4 6 weeks after delivery. Vaginal bleeding can vary from woman to woman. Change your sanitary pads frequently. Watch for any changes in your flow, such as: ?A sudden increase in volume. ?A change in color. ?Large blood clots. If you pass a blood clot from your vagina, save it and call your health care provider to discuss. Do not flush blood clots down the toilet before talking with your health care provider. Do not use tampons or douches until your health care provider says this is safe. If you are not , your period should return 6 8 weeks after delivery. If you are feeding your child breast milk only (exclusive ), your period may not return until you stop . Perineal care Keep the area between the vagina and the anus (perineum) clean and dry as told by your health care provider. Use medicated pads and pain-relieving sprays and creams as directed. If you had a cut in the perineum (episiotomy) or a tear in the vagina, check the area for signs of infection until you are healed. Check for: ?More redness, swelling, or pain. ?Fluid or blood coming from the cut or tear. ?Warmth. ?Pus or a bad smell. You may be given a squirt bottle to use instead of wiping to clean the perineum area after you go to the bathroom. As you start healing, you may use the squirt bottle before wiping yourself. Make sure to wipe gently. To relieve pain caused by an episiotomy, a tear in the vagina, or swollen veins in the anus (hemorrhoids), try taking a warm sitz bath 2 3 times a day. A sitz bath is a warm water bath that is taken while you are sitting down. The water should only come up to your hips and should cover your buttocks. Breast care Within the first few days after delivery, your breasts may feel heavy, full, and uncomfortable (breast engorgement). Milk may also leak from your breasts. Your health care provider can suggest ways to help relieve the discomfort. Breast engorgement should go away within a few days. If you are : ?Wear a bra that supports your breasts and fits you well. ?Keep your nipples clean and dry. Apply creams and ointments as told by your health care provider. ?You may need to use breast pads to absorb milk that leaks from your breasts. ?You may have uterine contractions every time you breastfeed for up to several weeks after delivery. Uterine contractions help your uterus return to its normal size. ?If you have any problems with , work with your health care provider or healthcare economics consultant. If you are not : ?Avoid touching your breasts a lot. Doing this can make your breasts produce more milk. ?Wear a good-fitting bra and use cold packs to help with swelling. ?Do not squeeze out (express) milk. This causes you to make more milk. Intimacy and sexuality Ask your health care provider when you can engage in sexual activity. This may depend on: ?Your risk of infection. ?How fast you are healing. ?Your comfort and desire to engage in sexual activity. You are able to get after delivery, even if you have not had your period. If desired, talkwith your health care provider about methods of control (contraception). Medicines Take ibfw-vaj-jascpfw and prescription medicines only as told by your health care provider. If you were prescribed an antibiotic medicine, take it as told by your health care provider. Do notstop taking the antibiotic even if you start to feel better. Activity Gradually return to your normal activities as told by your health care provider. Ask your health care provider what activities are safe for you. Rest as much as possible. Try to rest or take a nap while your baby is sleeping. Eating and drinking Drink enough fluid to keep your urine pale yellow. Eat high-fiber foods every day. These may help prevent or relieve constipation. High-fiber foods include: ?Whole grain cereals and breads. ?Brown rice. ?Beans. ?Fresh fruits and vegetables. Do not try to lose weight quickly by cutting back on calories. Take your vitamins until your checkup or until your health care provider tells you it is okay to stop. Lifestyle Do not use any products that contain nicotine or tobacco, such as cigarettes and e-cigarettes. If you need help quitting, ask your health care provider. Do not drink alcohol, especially if you are . General instructions Keep all follow-up visits for you and your baby as told by your health care provider. Most women visit their health care provider for a checkup within the first 3 6 weeks after delivery. Contact a health care provider if: You feel unable to cope with the changes that your child brings to your life, and these feelings donot go away. You feel unusually sad or worried. Your breasts become red, painful, or hard. You have a fever. You have trouble holding urine or keeping urine from leaking. You have little or no interest in activities you used to enjoy. You have not breastfed at all and you have not had a menstrual period for 12 weeks after delivery. You have stopped and you have not had a menstrual period for 12 weeks after you stopped . You have questions about caring for yourself or your baby. You pass a blood clot from your vagina. Get help right away if: You have chest pain. You have difficulty breathing. You have sudden, severe leg pain. You have severe pain or cramping in your lower abdomen. You bleed from your vagina so much that you fill more than one sanitary pad in one hour. Bleeding should not be heavier than your heaviest period. You develop a severe headache. You faint. You have blurred vision or spots in your vision. You have bad-smelling vaginal discharge. You have thoughts about hurting yourself or your baby. If you ever feel like you may hurt yourself or others, or have thoughts about taking your own life,get help right away. You can go to the nearest emergency department or call: Your local emergency services (911 in the [place] A suicide crisis helpline, such as the National Suicide Prevention Lifeline at . Thisis open 24 hours a day. Summary The period of time right after you deliver your up to 6 12 weeks after delivery is called the period. Gradually return to your normal activities as told by your health care provider. Keep all follow-up visits for you and your baby as told by your health care provider. This information is not intended to replace advice given to you by your health care provider. Make sure you discuss any questions you have with your health care provider. Document Released: 02/19/2008 Document Revised: 04/27/2018 Document Reviewed: 02/05/2018 [employer] Patient Education 2020 [employer] 10/29/2022 01:08:49 Care of a Perineal Tear Care of a Perineal Tear A perineal tear is a cut or tear (laceration) in the tissue between the opening of the vagina and the anus (perineum). Some women develop a perineal tear during a vaginal . This can happen as the baby emerges from the canal and the perineum is stretched. There are four degrees of perineal tears based on how deep and long the laceration is: First degree. This involves a shallow tear at the edge of the vaginal opening that extends slightlyinto the perineal skin. Second degree. This involves tearing described in first degree perineal tear, and an additional deeper tear of the vaginal opening and perineal tissues. It may also include tearing of a muscle just under the perineal skin. Third degree. This involves tearing described in first and second degree perineal tears, with the addition that tearing in the third degree extends into the muscle of the anus (anal sphincter). Fourth degree. This involves all levels of tears described in first, second, and third degree perineal tears, with the tear in the fourth degree extending into the rectum. First and second degree perineal tears may or may not be stitched closed, depending on their location and appearance. Third and fourth degree perineal tears are stitched closed immediately after the baby s . What are the risks? Depending on the type of perineal tear you have, you may be at risk for: Bleeding. Developing a collection of blood in the perineal tear area (hematoma). Pain. This may include pain when you urinate, or pain when you have a bowel movement. Infection at the site of the tear. Fever. Trouble controlling your urination or bowels (incontinence). Painful sex. How to care for a perineal tear Wound care Take a sitz bath as told by your health care provider. A sitz bath is a warm water bath that is taken while you are sitting down. The water should only come up to your hips and should cover your buttocks. This can speed up healing. 1.Partially fill a bathtub with warm water. You will only need the water to be deep enough to coveryour hips and buttocks when you are sitting in it. 2.If your health care provider told you to put medicine in the water, follow the directions exactlyas told. 3.Sit in the water and open the tub drain a little. 4.Turn on the warm water again to keep the tub at the correct level. Keep the water running constantly. 5.Soak in the water for 15 20 minutes or as told by your health care provider. 6.After the sitz bath, pat the affected area dry first. Do not rub it. 7.Be careful when you stand up after the sitz bath because you may feel dizzy. Wash your hands before and after applying medicine to the area. Wear a sanitary pad as told by your health care provider. Change the pad as often as told by your health care provider. Leave stitches (sutures), skin glue, or adhesive strips in place. These skin closures may need to stay in place for 2 weeks or longer. If adhesive strip edges start to loosen and curl up, you may trim the loose edges. Do not remove adhesive strips completely unless your health care provider tells you to do that. Check your wound every day for signs of infection. Check for: ?Redness, swelling, or pain. ?Fluid or blood. ?Warmth. ?Pus or a bad smell. Managing pain If directed, put ice on the painful area: ?Put ice in a plastic bag. ?Place a towel between your skin and the bag. ?Leave the ice on for 20 minutes, 2 3 times a day. Apply a numbing spray to the perineal tear site as told by your health care provider. This may helpwith discomfort. Take and apply nays-byc-pwlkksd and prescription medicines only as told by your health care provider. If told, put about 3 witch luis armando-containing hemorrhoid treatment pads on top of your sanitary pad. The witch luis armando in the hemorrhoid pads helps with swelling and discomfort. Sit on an inflatable ring or pillow. This may provide comfort. General instructions Squeeze warm water on your perineum after urinating. This should be done from front to back with a squeeze bottle. Pat the area to dry it. Do not have sex, use tampons, or place anything in your vagina for at least 6 weeks or as told by your health care provider. Keep all follow-up visits as told by your health care provider. These include any visits. This is important. Contact a health care provider if: Your pain is not relieved with medicines. You have painful urination. You have redness, swelling, or pain around your tear. You have fluid or blood coming from your tear. Your tear feels warm to the touch. You have pus or a bad smell coming from your tear. You have a fever. Get help right away if: Your tear opens. You cannot urinate. You have an increase in bleeding. You have severe pain. Summary A perineal tear is a cut or tear (laceration) in the tissue between the opening of the vagina and the anus (perineum). There are four degrees of perineal tears based on how deep and long the laceration is. First and second-degree perineal tears may or may not be stitched closed, depending on their location and appearance. Third and fourth- degree perineal tears are stitched closed immediately after thebaby s . Follow your health care provider's instructions for caring for your perineal tear. Know how to manage pain and how to care for your wound. Know when to call your health care provider and when to seekimmediate emergency care. This information is not intended to replace advice given to you by your health care provider. Make sure you discuss any questions you have with your health care provider. Document Released: 09/08/2014 Document Revised: 04/06/2018 Document Reviewed: 05/29/2017 [employer] Patient Education 2020 [employer] 10/29/2022 01:08:48 Choosing to breastfeed is one of the best decisions you can make for yourself and your baby. A change in hormones during causes your breasts to make breast milk in your milk-producing glands. Hormones prevent breast milk from being released before your baby is born. They also prompt milk flow after . Once has begun, thoughts of your baby, as well as his or her suckingor crying, can stimulate the release of milk from your milk-producing glands. Benefits of Research shows that offers many health benefits for infants and mothers. It also offers a cost-free and convenient way to feed your baby. For your baby Your first milk (colostrum) helps your baby's digestive system to function better. Special cells in your milk (antibodies) help your baby to fight off infections. Breastfed babies are less likely to develop asthma, allergies, obesity, or type 2 diabetes. They are also at lower risk for sudden syndrome (SIDS). Nutrients in breast milk are better able to meet your baby s needs compared to infant formula. Breast milk improves your baby's brain development. For you helps to create a very special basurto between you and your baby. is convenient. Breast milk costs nothing and is always available at the correct temperature. helps to burn calories. It helps you to lose the weight that you gained during . makes your uterus return faster to its size before . It also slows bleeding (lochia) after you give . helps to lower your risk of developing type 2 diabetes, osteoporosis, rheumatoid arthritis, cardiovascular disease, and breast, ovarian, uterine, and endometrial cancer later in life. basics Starting Find a comfortable place to sit or lie down, with your neck and back well-supported. Place a pillow or a rolled-up blanket under your baby to bring him or her to the level of your breast (if you are seated). Nursing pillows are specially designed to help support your arms and your baby while you breastfeed. Make sure that your baby's tummy (abdomen) is facing your abdomen. Gently massage your breast. With your fingertips, massage from the outer edges of your breast inward toward the nipple. This encourages milk flow. If your milk flows slowly, you may need to continue this action during the feeding. Support your breast with 4 fingers underneath and your thumb above your nipple (make the letter Cwith your hand). Make sure your fingers are well away from your nipple and your baby s mouth. Stroke your baby's lips gently with your finger or nipple. When your baby's mouth is open wide enough, quickly bring your baby to your breast, placing your entire nipple and as much of the areola as possible into your baby's mouth. The areola is the colored area around your nipple. ?More areola should be visible above your baby's upper lip than below the lower lip. ?Your baby's lips should be opened and extended outward (flanged) to ensure an adequate, comfortable latch. ?Your baby's tongue should be between his or her lower gum and your breast. Make sure that your baby's mouth is correctly positioned around your nipple (latched). Your baby's lips should create a seal on your breast and be turned out (everted). It is common for your baby to suck about 2 3 minutes in order to start the flow of breast milk. Latching Teaching your baby how to latch onto your breast properly is very important. An improper latch can cause nipple pain, decreased milk supply, and poor weight gain in your baby. Also, if your baby is not latched onto your nipple properly, he or she may swallow some air during feeding. This can make your baby fussy. Burping your baby when you switch breasts during the feeding can help to get rid of the air. However, teaching your baby to latch on properly is still the best way to prevent fussinessfrom swallowing air while . Signs that your baby has successfully latched onto your nipple Silent tugging or silent sucking, without causing you pain. Infant's lips should be extended outward (flanged). Swallowing heard between every 3 4 sucks once your milk has started to flow (after your let-down milk reflex occurs). Muscle movement above and in front of his or her ears while sucking. Signs that your baby has not successfully latched onto your nipple Sucking sounds or smacking sounds from your baby while . Nipple pain. If you think your baby has not latched on correctly, slip your finger into the corner of your baby s mouth to break the suction and place it between your baby's gums. Attempt to start again. Signs of successful Signs from your baby Your baby will gradually decrease the number of sucks or will completely stop sucking. Your baby will fall asleep. Your baby's body will relax. Your baby will retain a small amount of milk in his or her mouth. Your baby will let go of your breast by himself or herself. Signs from you Breasts that have increased in firmness, weight, and size 1 3 hours after feeding. Breasts that are softer immediately after . Increased milk volume, as well as a change in milk consistency and color by the fifth day of . Nipples that are not sore, cracked, or bleeding. Signs that your baby is getting enough milk Wetting at least 1 2 diapers during the first 24 hours after . Wetting at least 5 6 diapers every 24 hours for the first week after . The urine should be clear or pale yellow by the age of 5 days. Wetting 6 8 diapers every 24 hours as your baby continues to grow and develop. At least 3 stools in a 24-hour period by the age of 5 days. The stool should be soft and yellow. At least 3 stools in a 24-hour period by the age of 7 days. The stool should be seedy and yellow. No loss of weight greater than 10% of weight during the first 3 days of life. Average weight gain of 4 7 oz (113 198 g) per week after the age of 4 days. Consistent daily weight gain by the age of 5 days, without weight loss after the age of 2 weeks. After a feeding, your baby may spit up a small amount of milk. This is normal. frequency and duration Frequent feeding will help you make more milk and can prevent sore nipples and extremely full breasts (breast engorgement). Breastfeed when you feel the need to reduce the fullness of your breasts orwhen your baby shows signs of hunger. This is called on demand. Signs that your baby is hungry include: Increased alertness, activity, or restlessness. Movement of the head from side to side. Opening of the mouth when the corner of the mouth or cheek is stroked (rooting). Increased sucking sounds, smacking lips, cooing, sighing, or squeaking. Aoeu-pp-zjlfx movements and sucking on fingers or hands. Fussing or crying. Avoid introducing a pacifier to your baby in the first 4-6 weeks after your baby is born. After this time, you may choose to use a pacifier. Research has shown that pacifier use during the first yearof a baby's life decreases the risk of sudden syndrome (SIDS). Allow your baby to feed on each breast as long as he or she wants. When your baby unlatches or falls asleep while feeding from the first breast, offer the second breast. Because newborns are often sleepy in the first few weeks of life, you may need to awaken your baby to get him or her to feed. times will vary from baby to baby. However, the following rules can serve as a guide to help you make sure that your baby is properly fed: Newborns (babies 4 weeks of age or younger) may breastfeed every 1 3 hours. Newborns should not go without for longer than 3 hours during the day or 5 hours during the night. You should breastfeed your baby a minimum of 8 times in a 24-hour period. Breast milk pumping Pumping and storing breast milk allows you to make sure that your baby is exclusively fed your breast milk, even at times when you are unable to breastfeed. This is especially important if you go back to work while you are still , or if you are not able to be present during feedings. Your healthcare economics consultant can help you find a method of pumping that works best for you and give you guidelines about how long it is safe to store breast milk. Caring for your breasts while you breastfeed Nipples can become dry, cracked, and sore while . The following recommendations can help keep your breasts moisturized and healthy: Avoid using soap on your nipples. Wear a supportive bra designed especially for nursing. Avoid wearing underwire- style bras or extremely tight bras (sports bras). Air-dry your nipples for 3 4 minutes after each feeding. Use only cotton bra pads to absorb leaked breast milk. Leaking of breast milk between feedings is normal. Use lanolin on your nipples after . Lanolin helps to maintain your skin's normal moisture barrier. Pure lanolin is not harmful (not toxic) to your baby. You may also hand express a few drops of breast milk and gently massage that milk into your nipples and allow the milk to air-dry. In the first few weeks after giving , some women experience breast engorgement. Engorgement can make your breasts feel heavy, warm, and tender to the touch. Engorgement peaks within 3 5 days after you give . The following recommendations can help to ease engorgement: Completely empty your breasts while or pumping. You may want to start by applying warm, moist heat (in the shower or with warm, water-soaked hand towels) just before feeding or pumping.This increases circulation and helps the milk flow. If your baby does not completely empty your breasts while , pump any extra milk after he or she is finished. Apply ice packs to your breasts immediately after or pumping, unless this is too uncomfortable for you. To do this: ?Put ice in a plastic bag. ?Place a towel between your skin and the bag. ?Leave the ice on for 20 minutes, 2 3 times a day. Make sure that your baby is latched on and positioned properly while . If engorgement persists after 48 hours of following these recommendations, contact your health careprovider or a healthcare economics consultant. Overall health care recommendations while Eat 3 healthy meals and 3 snacks every day. Well-nourished mothers who are need an additional 450 500 calories a day. You can meet this requirement by increasing the amount of a balanced diet that you eat. Drink enough water to keep your urine pale yellow or clear. Rest often, relax, and continue to take your vitamins to prevent fatigue, stress, and low vitamin and mineral levels in your body (nutrient deficiencies). Do not use any products that contain nicotine or tobacco, such as cigarettes and e-cigarettes. Yourbaby may be harmed by chemicals from cigarettes that pass into breast milk and exposure to secondhand smoke. If you need help quitting, ask your health care provider. Avoid alcohol. Do not use illegal drugs or marijuana. Talk with your health care provider before taking any medicines. These include sxum-nlg-dyobdrp andprescription medicines as well as vitamins and herbal supplements. Some medicines that may be harmful to your baby can pass through breast milk. It is possible to become while . If control is desired, ask your healthcare provider about options that will be safe while your baby. Where to find more information: [employer]: www.llli.org Contact a health care provider if: You feel like you want to stop or have become frustrated with . Your nipples are cracked or bleeding. Your breasts are red, tender, or warm. You have: ?Painful breasts or nipples. ?A swollen area on either breast. ?A fever or chills. ?Nausea or vomiting. ?Drainage other than breast milk from your nipples. Your breasts do not become full before feedings by the fifth day after you give . You feel sad and depressed. Your baby is: ?Too sleepy to eat well. ?Having trouble sleeping. ?More than 1 week old and wetting fewer than 6 diapers in a 24-hour period. ?Not gaining weight by 5 days of age. Your baby has fewer than 3 stools in a 24-hour period. Your baby's skin or the white parts of his or her eyes become yellow. Get help right away if: Your baby is overly tired (lethargic) and does not want to wake up and feed. Your baby develops an unexplained fever. Summary offers many health benefits for infant and mothers. Try to breastfeed your when he or she shows early signs of hunger. Gently tickle or stroke your baby's lips with your finger or nipple to allow the baby to open his or her mouth. Bring the baby to your breast. Make sure that much of the areola is in your baby's mouth. Offer one side and burp the baby before you offer the other side. Talk with your health care provider or healthcare economics consultant if you have questions or you face problems as you breastfeed. This information is not intended to replace advice given to you by your health care provider. Make sure you discuss any questions you have with your health care provider. Document Released: 04/24/2006 Document Revised: 07/19/2018 Document Reviewed: 05/26/2017 [employer] Patient Education [place]. 10/29/2022 01:08:47 7b- Depression and Blues (02/2020) (CUSTOM) Nika Depression and Blues All mothers are at risk of developing depression or the blues. These mood changes can occur right after giving , or they may occur many months after giving . blues or depression can be mild or severe. Additionally, depression can goaway rather quickly, or it can be a long-term condition. CAUSES Raised hormone levels and the rapid drop in those levels are thought to be a main cause of depression and blues. A number of hormones change during and after . Estrogenand progesterone usually decrease right after delivery. The levels of thyroid hormone and various cortisol steroids also rapidly drop. Other factors that play a role in these mood changes include major life events and genetics. RISK FACTORS If you have any of the following risks for blues or depression, know what symptoms to watch out for during the period. Risk factors that may increase the likelihood of getting blues or depression include: Having a personal or family history of depression. Having depression while being . Having premenstrual mood issues or mood issues related to oral contraceptives. Having a lot of life stress. Having marital conflict. Lacking a social support network. Having health problems, such as diabetes. SIGNS AND SYMPTOMS Symptoms of blues include: Brief changes in mood, such as going from extreme happiness to sadness. Decreased concentration. Difficulty sleeping. Crying spells, tearfulness. Irritability. Anxiety. Symptoms of depression typically begin within the first month after giving . These symptoms include: Difficulty sleeping or excessive sleepiness. Marked weight loss. Agitation. Feelings of worthlessness. Lack of interest in activity or food. psychosis is a very serious condition and can be dangerous. Fortunately, it is rare. Displaying any of the following symptoms is cause for immediate medical attention. Symptoms of psychosis include: Hallucinations and delusions. Bizarre or disorganized behavior. Confusion or disorientation. DIAGNOSIS A diagnosis is made by an evaluation of your symptoms. There are no medical or lab tests that lead to a diagnosis, but there are various questionnaires that a health care provider may use to identifythose with blues, depression, or psychosis. Often, a screening tool called the [place] Depression Scale is used to diagnose depression in the period. TREATMENT blues usually goes away on its own in 1 2 weeks. Social support is often all that is needed. You will be encouraged to get adequate sleep and rest. Occasionally, you may be given medicinesto help you sleep. depression requires treatment because it can last several months or longer if it is not treated. Treatment may include individual or group therapy, medicine, or both to address any social,physiological, and psychological factors that may play a role in the depression. Regular exercise, a healthy diet, rest, and social support may also be strongly recommended. psychosis is more serious and needs treatment right away. Hospitalization is often needed. HOME CARE INSTRUCTIONS Get as much rest as you can. Exercise regularly. Some women find yoga and walking to be beneficial. Eat a balanced and nourishing diet. Do little things that you enjoy. Have a cup of tea, take a bubble bath, read your favorite magazine, or listen to your favorite music. Avoid alcohol. Ask for help with investment broker, cooking, grocery shopping, or running errands as needed. Do nottry to do everything. Talk to people close to you about how you are feeling. Get support from your partner, family members, and friends. Try to stay positive in how you think. Think about the things you are grateful for. Do not spend a lot of time alone. Only take klvy-bgd-zanxipw or prescription medicine as directed by your health care provider. Keep all your appointments. Let your health care provider know if you have any concerns. SEEK MEDICAL CARE IF: You are having a reaction to or problems with your medicine. SEEK IMMEDIATE MEDICAL CARE IF: You have suicidal feelings. You think you may harm yourself or someone else. MAKE SURE YOU: Understand these instructions. Will watch your condition. Will get help right away if you are not doing well or get worse. Resource: [facility] Patient Information 2015 [employer] [facility]. This information is not intended to replace advicegiven to you by your health care provider. Make sure you discuss any questions you have with your health care provider. Follow Up Care 10/28/2022 21:14:22 With:SAJI YOUSSEF Address: [address], [address] Dr. Yoni Simon, [place] [address]- [phone] When:12/10/2022 [facility] 06-24-2023 Note [facility] ADMISSION HISTORY AND PHYSICIAL History and Physical/Admit Note: S: Patient is a 31 year old female at 40.0 wks GA with EDC of 10/29/2022 confirmed by second trimester ultrasound who present to [facility] with the complaint of CTX. When pt arrived CE was 3 and she quickly progressed to 8cm in less that 2 hours. Membranes intact until pt began pushing and SROM'dlarge amount of clear fluid. complications include: GBS POS with PCN and Clinda allergy, rh negative but IS rhnegative History: NSVDx1, SABx1 Maternal medications include: PNV Bloodwork: Blood type: A negative; Rubella status: immune; HBsAG status: negative; HIV status: negative; GBS status: positive; RPR: NR O: Vitals Signs(Last 24 hrs)__Last Charted Minimum Maximum Temp36.5(OCT 28:)36.5(OCT 28:)36.5(OCT 28:) Heart Rate94(OCT 29 00:48)84(OCT 28:27)94(OCT 29 00:48) Resp Rate18(OCT 28:27)18(OCT 28:27)18(OCT 28:) WBQ489(OCT 29 00:48)104(OCT 29 00:48)130(OCT 28:) DBPC 49(OCT 29 00:48)C 49(OCT 29 00:48)88(OCT 28:27) Gen: alert, awake, in mild laboring distress Lungs: clear to auscultation bilaterally, equal breath sounds, no wheezes or crackles. Heart: RRR without murmur Abd: gravid uterus : cervical exam: Complete upon my arrival Membranes: SROM for clear fluid while pushing FHTs: Category 1 [place]: q 2-3 Ext: no edema 36hr Labs 10/28 2345 Hct36.2L Hgb11.9L MCH29.5 MCHC32.9L MCV89.5 MPV8.4 Binkuydx002 RBC4.05L RDW13.6 WBC15.3H Lymphocyte %10.5 Monocyte %5.3 Neutrophil %83.8H Eosinophil %0.1 Basophil %0.3 Neutrophil, Cbpuaxet21.8H Lymphocyte, Absolute1.6 Monocyte, Absolute0.8 Eosinophil, Absolute0.0 Basophil, Absolute0.0 10/29 2127 Blood Type, ExtSee Flowsheet Rubella, ExternSee Flowsheet HIV Antibodies,See Flowsheet Group B Strep,See Flowsheet Hepatitis B, ExSee Flowsheet Hepatitis B Date Performed1:[id number]:[id number]:0:0 RPR, ExternalSee Flowsheet Group B Strep Date Performed1:[id number]:0.243533:0:0 Medication List Active Medications Ordered acetaminophen: 650 mg, 2 tab(s), Oral, q6h, PRN: Pain, scale 1-3. benzocaine topical: 1 spray(s), Perineum, q1h, PRN: Other (see order comments). benzocaine topical: 1 garcía, Perineum, AsDirected, PRN: to perineal sutures. bisacodyl: 10 mg, 1 supp, Rectal, qDay, PRN: Constipation. carboprost: 250 mcg, 1 mL, Intramuscular, Once, PRN: Other (see order comments). carboprost: 250 mcg, 1 mL, Intramuscular, Once, PRN: Other (see order comments). citric acid-sodium citrate: 30 mL, Oral, AsDirected, PRN: Gastric Upset. citric acid-sodium citrate: 30 mL, Oral, AsDirected, PRN: Gastric Upset. docusate: 100 mg, 1 cap(s), Oral, BID, PRN: Constipation. ferrous sulfate: 325 mg, 1 tab(s), Oral, BID. glycerin-witch luis armando topical: 1 garcía, Topical, AsDirected, PRN: Hemorrhoids. hydrocortisone-pramoxine topical: 1 garcía, Perineum, q1h, PRN: hemorrhoidal or perineal discomfort. hydrocortisone topical: 25 mg, 1 supp, Rectal, BID, PRN: hemorrhoidal discomfort. ibuprofen: 600 mg, 1 tab(s), Oral, q6h, PRN: uterine cramping. Lactated Ringers Infusion: 500 mL, IV Bolus, AsDirected, PRN: Other (see order comments). Lactated Ringers Infusion 1,000 mL: 125 mL/hr, Intravenous. lanolin topical: 7 g, 1 EA, Topical, AsDirected, PRN: Other (see order comments). lidocaine: 20 mg, 2 mL, Perineum, AsDirected, PRN: to perineal sutures. lidocaine: 20 mg, 2 mL, Perineum, AsDirected, PRN: to perineal sutures. methylergonovine: 0.2 mg, 1 mL, Intramuscular, Once, PRN: Other (see order comments). methylergonovine: 0.2 mg, 1 mL, Intramuscular, Once, PRN: Other (see order comments). miSOPROStol: 1,000 mcg, 5 tab(s), Rectal, Once, PRN: Other (see order comments). miSOPROStol: 1,000 mcg, Rectal, Once, PRN: Other (see order comments). ondansetron: 4 mg, 2 mL, IV Push, q4h, PRN: Nausea. oxytocin: 20 unit(s), 2 mL, Intramuscular, Once, PRN: Other (see order comments). oxytocin: 20 unit(s), 2 mL, Intramuscular, Once, PRN: Other (see order comments). oxytocin 20 unit(s) + LR Premix Diluent 1,000 mL: 999 mL/hr, Intravenous. oxytocin 20 unit(s) + LR Premix Diluent 1,000 mL: 999 mL/hr, Intravenous. oxytocin 20 unit(s) + LR Premix Diluent 1,000 mL: 125 mL/hr, Intravenous. RHo (D) immune globulin: 300 mcg, 2 mL, Intramuscular, AsDirected, PRN: if Rh factor neg per policy. simethicone: 80 mg, 1 tab(s), Chewed, TID, PRN: Dyspepsia. sodium biphosphate-sodium phosphate: 133 mL, Rectal, qDay, PRN: Constipation. terbutaline: 0.25 mg, 0.25 mL, Subcutaneous, AsDirected, PRN: Other (see order comments). tetanus/diphth/pertuss (Tdap) adult/adol: 0.5 mL, Intramuscular, Vaccine. tranexamic acid: 1 gram(s), 100 mL, 300 mL/hr, IV Piggyback, AsDirected, PRN: Other (see order comments). vancomycin: 1,750 mg, 35 mL, 350 mL/hr, IV Piggyback, q8hr. zolpidem: 5 mg, 1 tab(s), Oral, qHS, PRN: Sleep. Documented herbal/nutritional product: Oral, Daily, 0 Refill(s). multivitamin, : 1 tab(s), Oral, qPM, 0 Refill(s). Medications Inactivated in the Last 72 Hours Sodium Chloride 0.9% intravenous solution: Miscellaneous, Once. tranexamic acid: Miscellaneous, Once. vancomycin: Miscellaneous, Once. vancomycin: Miscellaneous, Once. A: 1. 31 yo female at 40.0 wks GA in active labor 2. GBS POSITIVE P: 1. Admit to L&D 2. Cont external monitoring 3. IV placement/locked 4. Expectant management 5. Frequent position changes/labor support 6. GBS protocol with: Vancomycin 7. Nitrous oxide for pain management per pt request Digitally Signed by SAJI YOUSSEF on 10/29/2022 01:05 AM [facility]06-14-2023 Hospital Discharge instructions Patient Education 10/19/2022 06:51:08 7 - Labor and Delivery Outpatient Instructions (CUSTOM) [facility] OUTPATIENT HOME-GOING INSTRUCTIONS _X_ You are to follow up with your physician in ___ days/weeks. ACTIVITY ___ Bedrest __X_Activity as tolerated ___ No work/school for ___ days. ___Other PRESCRIPTION GIVEN ___Yes NAUSEA/VOMITING ___ Take small, frequent amounts of clear liquids. Avoid fruit juices and milk. ___ Increase fluid intake to a minimum of 8 ounces of fluid every hour while awake. ___ Soft diet. Rice, crackers, bananas, Jell-O, cooked carrots, applesauce. ___ Cedar diet. Avoid caffeine, chocolate, alcohol, spiced/greasy foods. URINARY TRACT INFECTION __X_ Drink 8-12 glasses of water every day. __X_ Urinate frequently; do not limit fluids to reduce frequency of urination. ___ Call your physician if burning and frequency with urination returns after taking all your medication. ___ Call your physician if you have a temperature of 100.4 degrees Fahrenheit or higher. ___ Wipe from front to back. SIGNS OF PRE-ECLAMPSIA ___ Severe heartburn. ___ Persistent headache not relieved by Tylenol. ___ Increased in swelling of face, hands and feet. ___ Blurred vision, double vision, or spots in the eyes. ___ Persistent vomiting. ___ *Convulsions or seizures. LABOR ___ Restrict activity. ___ Drink 8-12 glasses of water every day. ___ Urinate frequently ___ Pelvic rest. No sexual intercourse/ Call your physician if you experience: ___ Increase in vaginal discharge, leaking fluid, or vaginal bleeding. ___ More than 4, 5, or 6 contractions in one hour. ___ Burning and frequency with urination. DECREASED MOVEMENT __X_ Lie down on your left side, drink some fluids and relax. Count the movements. You need to have 10 movements in 2 hours. __X_ If you do not feel the 10 movements, call your physician. OTHER __X_ After an exam you may experience some spotting or discharge. As long as it is not bright red and heavy like a period or continues to leak as if your water broke, it is to be expected. ___ LABOR Call your physician if you experience: __X_ Painful uterine contractions every __3_ minutes for __1_ hours. __X_A gush or continuous trickle of watery discharge. COME TO THE HOSPITAL AND CALL PHYSICIAN IF: __X_ Your abdomen feels continually firm. __X_ *Bleeding is bright red and enough to saturate a pad in one hour or less. *Call 911 or go to the nearest Emergency Room for assistance. Form [id number] D: 04/15 Document Released: 04/24/2006 Document Revised: 04/12/2012 Document Reviewed: 04/24/2006 [facility] Patient Information 2012 [employer]. Follow Up Care 10/19/2022 03:13:22 With:ARIAN BENTON Address: DR YONI SIMON [address] [address] [facility] (1) When:10/19/2022 08:00:00 [facility] 04-21-2023 Note. MICRO - Microbiology PROCEDURE: Affirm Pathogens DNA Direct Probe [*1] SOURCE: Vaginal Fluid BODY SITE: Vagina COLLECTED DATE/TIME: 08/25/2022 16:35 EDT RECEIVED DATE/TIME: 08/25/2022 20:27 EDT START DATE/TIME: 08/25/2022 20:27 EDT FREE TEXT SOURCE: FINAL REPORTS Final Report [] Verified Date/Time/Personnel: 08/26/2022 10:02 EDT Sarita species DNA Probe Negative Gardnerella vaginalis DNA Probe Negative Trichomonas vaginalis DNA Probe Negative Performing Locations *1: This test was performed at: [facility], [address] [place] [address], [id number] , Formerly [facility] ([place])05-06-2022 Note. MICRO - Microbiology PROCEDURE: Affirm Pathogens DNA Direct Probe [*1] SOURCE: Vaginal Fluid BODY SITE: Vagina COLLECTED DATE/TIME: 05/05/2022 12:00 EST RECEIVED DATE/TIME: 05/05/2022 20:09 EST START DATE/TIME: 05/05/2022 20:10 EST FREE TEXT SOURCE: FINAL REPORTS Final Report [] Verified Date/Time/Personnel: 05/06/2022 09:04 EST Sarita species DNA Probe Negative Gardnerella vaginalis DNA Probe Negative Trichomonas vaginalis DNA Probe Negative Performing Locations *1: This test was performed at: [address], [address] [place] [address] ([place])04-21-2022 Note. MICRO - Microbiology PROCEDURE: Urine Culture [*1] SOURCE: Urine, Clean Catch BODY SITE: COLLECTED DATE/TIME: 04/19/2022 09:25 EST RECEIVED DATE/TIME: 04/19/2022 21:09 EST START DATE/TIME: 04/19/2022 21:10 EST FREE TEXT SOURCE: FINAL REPORTS Final Report [] Verified Date/Time/Personnel: 04/21/2022 08:01 EST 10,000 - 50,000 cfu/ml Multiple bacterial morphotypes present. Probable Contamination. Suggest recollection if clinically indicated. PRELIMINARY REPORTS Preliminary Report [] Verified Date/Time/Personnel: 04/20/2022 15:06 EST Culture results pending. Performing Locations *1: This test was performed at: [address], [address] [place] [address] ([place])04-15-2022 Note. MICRO - Microbiology PROCEDURE: Urine Culture [*1] SOURCE: Urine BODY SITE: COLLECTED DATE/TIME: 04/14/2022 11:12 EST RECEIVED DATE/TIME: 04/14/2022 19:46 EST START DATE/TIME: 04/14/2022 19:46 EST FREE TEXT SOURCE: FINAL REPORTS Final Report [] Verified Date/Time/Personnel: 04/15/2022 14:20 EST 10,000 - 50,000 cfu/ml Mixed growth consistent with normal urogenital valdez. Performing Locations *1: This test was performed at: [address], [address] [place] [address] ([place])Consult note Author Clay Ross [facility] Note Date/Time October 17, 2024 10:5 2am [facility] [place] Medical Records Department [address] [place] [address] Pre-Anesthesia Evaluation 10/17/24 1052 MR#: [id number] Acct: [id number] Name: MINDY WHITE Rep #:[id number] : 1990 33 From: Clay Ross MD PCP: Dr. Jaskaran Llanes MD Status:REG S DC Y Race: C Location: EN ASA Classification* ASA Classification ASA Classification: 2 Assessment & Plan Anesthesia* Anesthesia Assessment Anesthesia Assessment: Discussed sedation and/or anesthesia options, risks, benefits, and alternatives with patient/parents/legal guardian/POA. Questions invited. The patient/parents/legal guardian/POA seems to understand and agrees to proceedwith anesthesia plan. Reviewed the physical assessment, medical history, allergy history and patient home medications list prior to surgery/procedure/anesthetic and documented any changes. Performed airway and anesthesia risk assessments. 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 When Was Last Pacemaker Check QUESTION #4 FULL TEXT: You/Your Family Experience fever (hyperthermia) with Anesthesia Last Oral Intake Last Oral intake: Last Oral Intake NPO since Meds taken in AM with sips of water? 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 Female Yes 10/15/24 13:56 HX of Motion Sickness No 10/15/24 13:56 HX of N/V After Surgery Yes 10/15/24 13:56 Non-Smoker Yes 10/15/24 13:56 Duration of Surgery greater No 10/15/24 13:56 than 60 minutes Number of Risk Factors 3 10/15/24 13:56 PONV Score Moderate Risk 10/15/24 13:56 Height & Weight Height & Weight: Anesthesia: Height & Weight Height 5 ft 3 in 09/03/24 10:07 Respiratory Assessment Respiratory Assessment - wire welder: Respiratory Tract Infection Hx - wire welder Hx Respiratory Tract Infection No 10/15/24 13:56 STOP Sleep Apnea STOP Sleep Apnea - wire welder: STOP Sleep Apnea - wire welder Hx Hypertension No 10/15/24 13:56 Hx Sleep Apnea No 10/15/24 13:56 CPAP BIPAP Do you snore loudly (louder No 10/15/24 13:56 than talking or can be heard Do you often feel tired/ No 10/15/24 13:56 fatigued/ sleepy during daytime? Has anyone observed you stop No 10/15/24 13:56 breathing during sleep? STOP Results Negative 10/15/24 13:56 QUESTION #5 FULL TEXT : Do you snore loudly (louder than talking or can be heard through closed doors)? 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 Specify any problems Hx of Preganancy in last 3 No 10/15/24 13:56 Months Nurse Filling Out Transfusion DSCHRIBER 10/15/24 13:56 & Questions: Date: 10/15/24 10/15/24 13:56 Time: 13:58 10/15/24 13:56 Patient unable to answer at this time (ie. confused, unrespo /Reproduction History /Reproductive History - wire welder: /Reproductive Hx- wire welder Hx Now No 10/15/24 13:56 Gestational Age (in weeks): EDC: Hx Hx Para Hx Section SAB No 10/15/24 13:56 PFSH Medical History Migraine headache Gastric reflux Non-smoker Home Medications ?Medication ?Instructions ?Recorded ?Last Taken ?Type calcium polycarbophil 625 mg 1,250 mg PO QDAY 09/03/24 Unknown History tablet (FiberCon) pantoprazole 40 mg tablet,delayed 40 mg PO QDAY #90 ta bs 09/03/24 Unknown Rx release cholecalciferol (vitamin D3) 25 25 mcg PO DAILY Unknown History mcg (1,000 unit) capsule (Vitamin D3) magnesium 250 mg tablet 250 mg PO DAILY 10/15/24 Unk nown History vit no.95-ferrous 1 tab PO DAILY 10/15/24 Unk nown History fumarate 28 mg-folic acid 800 mcg tablet ( Multivitamins) Allergy/AdvReac Type Severity Reaction Status Date / Time amoxicillin (From Augmentin) Allergy Intermediate Other Verified 10/15/24 13:55 clavulanic acid (From Allergy Intermediate Other Verified 10/15/24 13:55 Augmentin) Surgical History History of mandibular surgery History of cholecystectomy Social History Smoking Status: Never smoker alcohol intake: never frequency: 5-6 times per week Review of Systems (Anesthesia) ROS Narrative System reviewed and no additional complaints, except as documented. 10/17/24 1052 <Electronically signed by Clay Ross MD > Date _ Clay Biggs Signature: Date CC: ~ Signed [facility] Work Phone: Consult note Author Filiberto Serrano [facility] Note Date/Time October 17, 2024 12:0 9pm [facility] [place] Medical Records Department [address] [place] [address] Anesthesia Postop Eval I 10/17/24 1208 MR#: [id number] Acct: [id number] Name: MINDY WHITE Rep #:[id number] : 1990 33 From: Filiberto Serrano PCP: Dr. Jaskaran Llanes MD Status:REG S DC Y Race: C Location: [place] [address] Anesthesia: Postop Eval I Current Vital Signs Temperature: 97 F Pulse Rate: 69 Blood Pressure: 109/78 Respiratory Rate: 14 Pulse Ox: 100 Oxygen Delivery Method: Room Air Assessment Airway patent: Yes Spontaneous unlabored respirations: Yes Mental status: Awake and Calm nausea: No Vomiting: No Anesthesia Complication: No Fluid Hydration Crystalloid volume administer (ml): 200 Total IV fluid infused: 200 Progress Note Anesthesia document: Postop Eval 1 completed: Yes 10/17/24 1209 <Electronically signed by Filiberto Serrano > Date _ Filiberto Coronado Signature: Date CC: ~ Signed [facility] Work Phone: Consult note Author Clay yani [facility] Note Date/Time October 17, 2024 12:2 6pm [facility] [place] Medical Records Department [address] [place] [address] Anesthesia Postop Eval II 10/17/24 1225 MR#: [id number] Acct: [id number] Name: MINDY WHITE Rep #:[id number] : 1990 33 From: Clay Ross MD PCP: Dr. Jaskaran Llanes MD Status:REG S DC Y Race: C Location: [place] [address] Anesthesia Postop Eval I Sum Postop Eval Completion status Anesthesia document: Postop Eval 1 completed: Yes Anesthesia Postop Eval I Summary Anesthesia Postop Eval I Summary: Anesthesia Postop Eval I: Assessment Summary Airway patent Yes 10/17/24 12:09 [email or web address] Spontaneous unlabored Yes 10/17/24 12:09 [email or web address] respirations Mental status Awake,Calm 10/17/24 12:09 [email or web address] nausea No 10/17/24 12:09 [email or web address] Vomiting No 10/17/24 12:09 [email or web address] Anesthesia Postop Eval I: Fluid Summary Crystalloid volume administer 200 10/17/24 12:09 [email or web address] (ml) Colloids volume administered ( ml) Blood Product volume administered (ml) Total IV fluid infused 200 10/17/24 12:09 [email or web address] Anesthesia Postop Eval I: Summary Notes Anesthesia Complication No 10/17/24 12:09 [email or web address] Anesthesia Complication Comment: Post-operative progress note Anesthesia: Postop Eval II Evaluation Mental status: Awake Pain Level: 0 nausea: No Vomiting: No 10/17/24 1226 <Electronically signed by Clay Ross MD > Date _ Clay Ross MD Cosign Signature: Date CC: ~ Signed [facility] Work Phone: Evaluation + Plan note No data available for this section [facility] History and physical note Author Junior Friend [facility] Note Date/Time October 17, 2024 11:5 1am [facility] Medical Records Department [address] [place] [address] History & Physical Exam 10/17/24 1149 MR#: [id number] Acct: [id number] Name: MINDY WHITE Rep #:[id number] : 1990 33 From: Junior Friend DO PCP: Dr. Jaskaran Llanes MD Status:REG S DC Location: [place] [address] HPI - General General Date of Admission: 10/17/24 Date of Service: 10/17/24 HPI Narrative MINDY WHITE, is a 33 F who presents LEORA WHITE, is a 33 F who presents to the office today for OV 06/25/2024 33y/o female presents for consultation with complaints of external skin tag and indigestion. She reports development of hemorrhoid post delivery of her second child in 2022. Rectal exam today reveals a minute skin tag. She denies any bleeding but does endorse intermittent rectal irritation. We have discussed thebenefits of a high-fiber diet with the addition of FiberCon tablets daily. She will also trial Anusol suppositories for 7 days. In terms of indigestion she complains of an epigastric pressure and occasional heartburn. Denies any nausea, vomiting, dysphagia or weight loss. She has noted improvement in the past with OTC Pepcid. She will start Pepcid 20 mg once daily and complete 8 weeksof therapy. She will follow-up in 3 months. If she has return of upper GI symptoms we will proceed with EGD. If she continues to experience irritation secondary to skin tag will arrange for banding. Note: [employer] speech recognition concrete smoother software was used to create portions of this document. Sound-alike and misspelled words, as well as other concrete smoother errors may be contained in the documentation. Patient Instructions: FiberCon 2 tablets once daily with 8 ounces of water after a meal. May take up to 3 weeks for symptom improvement. Pepcid 20mg QD x8 weeks and then discontinue, if symptoms persist will start PPIand schedule EGD - reports the hemorrhoids are so much better - epigastric palpitation, feeling of fullness, intermittent - has been on pepcid 20mg daily since last OV - avoids caffeine - reports episodes have decreased in frequency with pepcid daily, no longer having daily episodes - Holter monitor shows something there but nothing worrisome - she went on a low dose BB and this showed no change - saw a chiropractor and was able to massage down hiatal hernia and this resolved symptom x2 - symptoms did not worsen when - wants to become again and is fearful she will develop symptoms duringpregnancy [facility] Medical History Migraine headache Gastric reflux Non-smoker Home Medications ?Medication ?Instructions ?Recorded ?Last Taken ?Type calcium polycarbophil 625 mg 1,250 mg PO QDAY 09/03/24 Unknown History tablet (FiberCon) pantoprazole 40 mg tablet,delayed 40 mg PO QDAY #90 ta bs 09/03/24 Unknown Rx release cholecalciferol (vitamin D3) 25 25 mcg PO DAILY Unknown History mcg (1,000 unit) capsule (Vitamin D3) magnesium 250 mg tablet 250 mg PO DAILY 10/15/24 Unk nown History vit no.95-ferrous 1 tab PO DAILY 10/15/24 Unk nown History fumarate 28 mg-folic acid 800 mcg tablet ( Multivitamins) Allergy/AdvReac Type Severity Reaction Status Date / Time amoxicillin (From Augmentin) Allergy Intermediate Other Verified 10/17/24 11:19 clavulanic acid (From Allergy Intermediate Other Verified 10/17/24 11:19 Augmentin) Surgical History History of mandibular surgery History of cholecystectomy Social History Smoking Status: Never smoker alcohol intake: never frequency: 5-6 times per week ROS Constitutional Constitutional: Denies fatigue, fever(s), poor appetite, weight gain or weight loss Gastrointestinal Gastrointestinal: Denies belching, bloating, change in bowel habits, change in stool character, chewing difficulty, coffee ground emesis, constipation, cramping, diarrhea, dyspepsia, dysphagia, early satiety, excessive flatus, fecalincontinence, heartburn, hematemesis, hematochezia, hemorrhoids, loose stools, melena, nausea, odynophagia, rectal bleeding, tenesmus, vomiting or weight changes Vital Signs Vital Signs Vital Signs: 10/17/24 11:19 10/17/24 11:19 Temperature 98.3 F Temperature Source Temporal Pulse Rate 66 Respiratory Rate 16 Respiratory Pattern Normal Blood Pressure 116/78 Blood Pressure Mean 90 Blood Pressure Source Monitor Blood Pressure Position Semi-Fowlers Blood Pressure Location Right Arm Pulse Ox 100 Oxygen Delivery Method Room Air Weight Weight: 137 lb 9.095 oz Body Mass Index (BMI) 24.3 Physical Exam Const alert, oriented x3, no apparent distress and healthy appearing General Appearance: cooperative GI normal to inspection, nondistended, normoactive bowel sounds, soft to palpation,non-tender and non-distended Percussion: normal to percussion Rectal Exam: deferred Results Lab / Micro Data Labs: Laboratory Results - last 24 hr 10/17/24 11:15: Urine Test Negative Assessment & Plan Assessment/Plan (1) Epigastric pain: (2) Heartburn: PLAN: Assessment and Plan Assessment and Plan (1) Heartburn: Status: Acute (2) Epigastric pain: Status: Acute Medications: New pantoprazole take 30 minutes before breakfast every morning 40 mg PO QDAY 90 tabs 1RF Discontinued hydrocortisone acetate (Anusol-HC) Discontinued Reason: Order Completed 25 mg FL QHS 12 ea 0RF famotidine (Pepcid) Discontinued Reason: Order Changed 20 mg PO QDAY 90 tabs 1RF Plan 33-year-old female presents for follow-up of heartburn and rectal irritation. She was last seen in the office on 06/25/2024 and was started on Pepcid 20 mg daily and provided a 7-day treatment of Anusol suppositories. She reports resolution in rectal pain with Anusol suppositories. Since starting Pepcid 20 mg daily (8 weeks ago) she does report improvement in epigastric pain but not resolution. She will discontinue Pepcid and start PPI daily. I have scheduled her for an EGD for further evaluation. Note: [employer] speech recognition concrete smoother software was used to create portions of this document. Sound-alike and misspelled words, as well as other concrete smoother errors may be contained in the documentation. Patient Instructions: Discontinue pepcid Start pantoprazole 40mg daily I like 3 Will refill Anusol supp. if she has recurrent GI symptoms Follow-up in office post procedure 10/17/24 1151 <Electronically signed by Junior Gomez DO> Cosigner Signature (if applicable): CC: Dr. Jaskaran Llanes MD; Junior Gomez DO~ Signed [facility] Work Phone: Hospital Discharge instructions No data available for this section [facility] Progress note No data available for this section [facility] Reason for referral (narrative)No reason for referral information availableWM[facility] Work Phone: Summary Purpose Family History No Family History Records FoundNo Family History Records FoundNo Family History Records FoundNo Family History Records FoundNo Family History Records FoundNo Family History Records FoundNo Family History Records Found Advance Directives Advance Directive Response Recorded Date/ Time Do you have a Healthcare Power of Supervisor Twisting Department? Yes October 15, 2024 1:56pm Chief Complaint and Reason for Visit Chief Complaint Admit Date Hemorrhoids June 25, 2024 2:59pm 10 WK FU September 03, 2024 9:5 7am Reason for Visit Admit Date Heartburn June 25, 2024 2:59pm Skin tag of rectum June 25, 2024 2:59pm Epigastric pain September 03, 2024 9:5 7am Heartburn September 03, 2024 9:5 7am Epigastric pain October 17, 2024 10:4 1am Heartburn October 17, 2024 10:4 1am Additional Source Comments INFORMATION SOURCE (unrecogn ized section and content) DATE CREATED AUTHOR 01/24/2019 [facility] DATE CREATED AUTHOR AUTHOR'S ORGANIZ ATION 04/23/2020 [facility] DATE CREATED AUTHOR AUTHOR'S ORGANIZ ATION 08/07/2022 [facility] DATE CREATED AUTHOR AUTHOR'S ORGANIZ ATION 08/10/2022 [facility] DATE CREATED AUTHOR AUTHOR'S ORGANIZ ATION 11/04/2022 [facility] ([place]) DATE CREATED AUTHOR AUTHOR'S ORGANIZ ATION 10/09/2024 [facility] DATE CREATED AUTHOR AUTHOR'S ORGANIZ ATION 10/17/2024 [facility] Care Team (unrecognized sect ion and content) Team Status: Active Member Role Status Dates Dr. Jaskaran Llanes MD Primary Care Provider Active Team Status: Inactive Member Role Status Dates OPAL Man Attending Provider Active Start: June 25, 2024 End: June 25, 2024 Team Status: Inactive Member Role Status Dates OPAL Man Attending Provider Active Start: September 03, 2024 End: September 03, 2024 Team Status: Inactive Member Role Status Dates Dr. Junior Gomez DO Attending Provider Active Start: October 17, 2024 End: October 17, 2024 Dr. Jaskaran Llanes MD Primary Care Provider Active Start: October 17, 2024 End: October 17, 2024 Dr. Jaskaran Llanes MD Referring Provider Active Start: October 17, 2024 End: October 17, 2024 Team Status: Active Member Role Status Dates Dr. Junior Gomez DO Attending Provider Active Start: October 17, 2024 Dr. Junior Gomez DO Other Provider Active St art: October 17, 2024 Dr. Jaskaran Llanes MD Primary Care Provider Active Start: October 17, 2024 Dr. Jaskaran Llanes MD Referring Provider Active Start: October 17, 2024 Care Team (unrecognized sect ion and content) Care Team Personnel Name: Jaquelin Leary Position: Quality Review Member Role: Plant Protection Supervisor Name: HILARY BERUMEN MD Member Role: Primary Care Physician Address: Address: [address] [facility] [address] [place] [id number]- Care Team Related Persons Name: CLARIBEL FRANCIS Address: Home [address] [place] [id number] [place] Name: RITIKA FRANCIS Name: GRISELDA WHITE Address: Home [address] [place] [address] Name: CINDI WHITE Address: Home [address] [facility] [place] [address] [place] Care Team Personnel Name: Jaquelin Leary Position: Quality Review Member Role: Plant Protection Supervisor Name: HILARY BERUMEN MD Member Role: Primary Care Physician Address: Address: [address] [facility] [address] [place] [address]- Care Team Related Persons Name: CLARIBEL FRANCIS Address: Home [address] [place] [phone] [place] Address: Temporary [address] [id number] Name: RITIKA FRANCIS Name: GRISELDA WHITE Address: Home [address] [place] [address] Name: CINDI WHITE Address: Home [address] Care Team Personnel Name: Jaquelin Leary Position: Quality Review Member Role: Plant Protection Supervisor Name: HILARY BERUMEN MD Member Role: Primary Care Physician Address: Address: [address] [place] [address] [address] [place], [place] [address] Care Team Related Persons Name: CLARIBEL FRANCIS Address: Home [address] [id number] Address: [address] [id number] Name: RITIKA FRANCIS Name: GRISELDA WHITE Address: Home [address] [place] [address] Name: CINDI WHITE Address: Home [address] [place] [address] FOR RECORDS PERTAINING TO PATIENTS WHO ARE OR HAVE BEEN ENROLLED IN A CHEMICAL DEPENDENCY/SUBSTANCEABUSE PROGRAM, SOME INFORMATION MAY BE OMITTED. This clinical summary was aggregated from multiple sources. Caution should be exercised in using it in the provision of clinical care. This summary normalizes information from multiple sources, and as a consequence, information in this document may materially change the coding, format and clinical context of patient data. In addition, data may be omitted in some cases. CLINICAL DECISIONS SHOULD BE BASED ON THE PRIMARY CLINICAL RECORDS. [facility] [employer] [facility]. provides no warranty or guarantee of the accuracy or completeness of information in this document.
== END 2024-10-17 12:51 | disposition home or self-care (01) ==
LOC: EN 10:47 → AC 11:21
PROVIDERS: Anesthesiology; PCP Family Medicine; Referring Provider Family Medicine; Visit Provider Internal Medicine Gastroenterology
PROC: 0DJ08ZZ Inspection of Upper Intestinal Tract, Via Natural or Artificial Opening Endoscopic (ICD-10-PCS; CPT 43235; principal; 2024-10-17 11:25)
DX: K29.50 Unspecified chronic gastritis without bleeding (principal); K31.84 Gastroparesis; K21.9 Gastro-esophageal reflux disease without esophagitis
CPT/HCPCS: 43239; 81025; 88305; 88342; J2405